=== PATIENT | female | born 1950 | race Caucasian/White ===

== ENCOUNTER 2017-12-20 18:24 | Inpatient (IN) ==
[2017-12-20 19:39] LABS: Basophils % 0.3 % (0.1-2.0); Eosinophils # 0.3 K/mm3 (0.0-0.4); Hemoglobin 10.6 g/dL (12.2-16.2); Lymphocytes # 0.7 K/mm3 (0.7-4.5); Lymphocytes % 8.7 K/mm3 (10-50); Mean Corpuscular Hemoglobin 28.9 pg (27.0-31.2); Mean Corpuscular Volume 90.1 fl (81-99); Mean Platelet Volume 6.9 fl (7.4-10.4); Monocytes # 0.4 K/mm3 (0.1-1.0); Monocytes % 4.7 % (1.7-9.3); Neutrophils # 6.7 K/mm3 (1.8-7.8); Neutrophils % 83.2 % (37.0-80.0); Platelet Count 516 K/mm3 (142-424); Red Blood Count 3.66 M/mm3 (4.20-5.40); Red Cell Distribution Width 14.4 % (11.5-17.5); White Blood Count 8.1 K/mm3 (4.8-10.8)
[2017-12-20 19:53] LABS: Albumin Level 3.3 gm/dL (3.4-5.0); Albumin/Globulin Ratio 0.9 (1.1-1.8); Anion Gap 21.9 mEq/L (5-15); Bilirubin,Total 0.3 mg/dL (0.2-1.0); Calcium 9.9 mg/dL (8.5-10.1); Globulin 3.7 gm/dl (1.3-3.2)
[2017-12-20 19:55] LABS: Potassium 2.9 mmoL/L (3.5-5.1)
--- NOTE | 2017-12-20 21:07 | Emergency Department Note ---
ED Disposition Clinical Impression: Facial cellulitis, Hypokalemia, Renal insufficiency Anemia Qualifiers: Anemia type: unspecified type Qualified Code(s): D64.9 - Anemia, unspecified Disposition: Admitted as Observation Condition on Discharge: Good Referrals: Figueroa Pastrana MD [Primary Care Provider] - - Critical Care Critical Care Time: No Attestation: On 12/20/17, the high probability of a clinically significant, sudden or life threatening deterioration of the following system(s) required my full and direct attention, intervention and personal management. The time I documented below is in addition to time spent performing reported procedures but includes the following listed in this critical care notation. Medical Decision Making - Medical Records Medical records reviewed: Yes: I reviewed the patient's medical records. - Khari Inquiry Pt receiving controlled substance: No Vital Signs: 12/20/17 18:25 12/20/17 19:55 12/20/17 21:38 Temperature 99.1 F Temperature Source Oral Pulse Rate [Right Brachial] 119 H 77 93 H Respiratory Rate 20 14 16 Blood Pressure [Right Arm] 147/108 162/75 173/72 Blood Pressure Mean [Right Arm] 121 104 105 Blood Pressure Source [Right Arm] Automatic Cuff Blood Pressure Position [Right Arm] Sitting 02 Sat by Pulse Oximetry 99 97 98 Oxygen Delivery Method Room Air Room Air Room Air - Lab Data Lab results reviewed: Yes: I reviewed the patient's lab results. Lab Results 12/20/17 19:15: WBC 8.1, RBC 3.66 L, Hgb 10.6 L, Hct 33.0 L, MCV 90.1, MCH 28.9 , MCHC 32.0, RDW 14.4, Plt Count 516 H, MPV 6.9 L, Neut % (Auto) 83.2 H, Lymph % (Auto) 8.7 L, [place] % (Auto) 4.7, Eos % (Auto) 3.0, Baso % (Auto) 0.3, Neut # ( Auto) 6.7, Lymph # (Auto) 0.7, [place] # (Auto) 0.4, Eos # (Auto) 0.3, Baso # (Auto ) 0.0 12/20/17 19:15: Sodium 134 L, Potassium 2.9 L*, Chloride 104, Carbon Dioxide 11 L, Anion Gap 21.9 H, BUN 36 H, Creatinine 2.23 H, Estimated Creat Clear 38, Estimated GFR 22 L, Est GFR ( Amer) 27 L, Glucose 100, Calcium 9.9, Total Bilirubin 0.3, AST 25, ALT 23, Alkaline Phosphatase 152 H, Total Protein 7.0, Albumin 3.3 L, Globulin 3.7 H, Albumin/Globulin Ratio 0.9 L 12/20/17 19:15: Lactic Acid 1.1 12/20/17 19:15: C-Reactive Protein 5.8 H 12/20/17 21:35: ESR 99 H Result diagrams: 12/20/17 19:15 12/20/17 19:15 Orders (Tests/Meds): ED MEDICATIONS Discontinued Medications Generic Name Dose Route Start Last Admin Trade Name Freq PRN Reason Stop Dose Admin Sodium Chloride 1,000 mls @ 999 mls/hr 12/20/17 19:30 12/20/17 19:35 Sod Chlor 0.9% 1000ml Bag IV 12/20/17 20:30 999 mls/hr .[id number] THEA Administration Ondansetron HCl 4 mg 12/20/17 19:26 12/20/17 19:35 Zofran 4mg/2ml Vial IV 12/20/17 19:27 4 mg ONCE ONE Administration Potassium Chloride 40 meq 12/20/17 22:28 Klor-Con 20meq Tablet PO 12/20/17 22:29 ONCE ONE ORDERS Category Date Time Status Chest XR 2 view (NOT portable) [XR chest 2V] Stat Exams 12/20/17 21:17 Taken Urinalysis and Microscopic Stat Lab 12/20/17 19:03 Ordered Blood Culture Stat Micro 12/20/17 19:03 Received - Radiology Data #1 Image(s): Chest Image Reviewed: Yes I reviewed the patient's radiology image Preliminary Findings: Normal/NAD Weakness HPI - General Chief complaint: Weakness Stated complaint: Weak; Not eating Time Seen by Provider: 12/20/17 21:04 Mode of Arrival: Wheelchair Limitations: No Limitations Description of Symptoms (Recalled from ER Triage Doc. by RN): Per pt family report pt had all over her teeth extracted approx 2 months ago. Family reports pt was having some weakness and fatgue prior to teeth extraction but it was worsened since extraction. Pt reports fatigue, weakness, dizziness more when movement, decreased appetite. Reports has had blisters in mouth. Pt has a swollen area under her chin that pt reports has been present x2 days. - History of Present Illness HPI Narrative: pt with wt loss and feels unwell over the last few weeks with wt loss since dental extractions - no diabetes and no fever - MD Complaint: generalized weakness Onset (ago): day(s) Location: generalized Migration: none Severity: moderate Associated symptoms: loss of appetite - Related Data Home Medications Medication Instructions Recorded Confirmed Buspirone HCl [Buspar 5mg tablet] 5 mg PO NEEDED PRN 12/20/17 12/20/17 Lisinopril/Hydrochlorothiazide 1 tab PO DAILY 12/20/17 12/20/17 [Lisinopril-Hctz 10-12.5 mg Tab] Allergies Allergy/AdvReac Type Severity Reaction Status Date / Time Penicillins Allergy Verified 12/20/17 19:03 [facility] History I have reviewed the patient's past medical history: Yes ROS Obtained: Yes All systems reviewed & no additional complaints - Constitutional Constitutional: Denies fever(s) - Eyes Eyes: Denies change in vision - ENT Ears, Nose, Mouth, and Throat: Reports as per HPI, Denies sore throat - Cardiovascular Cardiovascular: Denies chest pain - Respiratory Respiratory: No cough - Gastrointestinal Gastrointestingal: Denies: abdominal pain, nausea, vomiting - Genitourinary Female Genitourinary: Denies hematuria - Musculoskeletal Musculoskeletal: Denies joint pain - Integumentary/Breasts Skin/Breast: Denies rash - Neurologic Neurologic: Denies headache(s), Denies seizure-like activity Physical Exam - General General appearance: alert - Head Head exam: normocephalic - Eye Eye exam: Present: PERRL, EOMI. Absent: scleral icterus - ENT ENT exam: Present: mucous membranes dry, other (submental ) - Neck Neck exam: Absent: trachea midline - Respiratory Respiratory exam: Present: normal lung sounds bilaterally - Cardiovascular Cardiovascular exam: Present: regular rate, systolic murmur - Abdominal Exam Abdominal exam: Present: soft - Extremities Exam Extremities exam: Absent: calf tenderness - Neurological Exam Neurological exam: Present: alert, oriented X3, CN II-XII intact - Psychiatric Psychiatric exam: Present: normal affect, depressed - Skin Skin exam: Absent: rash
[2017-12-20 23:14] LABS: T4 (Thyroxine) 12.7 ug/dl (4.7-13.3); Thyroid Stimulating Hormone 0.84 uIU/ml (0.358-3.740)
[2017-12-21 05:21] LABS: Microscopic, Urine URINE MICROSCOPIC (MICROSCOPIC)
[2017-12-21 05:34] LABS: Appearance,Urine CLEAR (Clear); Bilirubin,Urine Negative (Negative); Blood, Urine 1+ (Negative); Color,Urine YELLOW (Yellow); Glucose,Urine (UA) Negative (Negative); Ketones,Urine Negative (Negative); Leukocyte Esterase,Urine 1+ (Negative); PH,Urine 6.5 (5.0-8.5); Protein,Urine 1+ (Negative); Urobilinogen,Urine 0.2 EU/dl (0.2)
--- NOTE | 2017-12-21 06:08 | History & Physical Report ---
*Admission Date: 12/20/17 *Chief complaint: Weakness and right facial swelling *History of present illness: 67-year-old white female with history of significant dental disease who 2-3 weeks ago had all of her teeth extracted. She has felt very poorly since then, has had a lot of facial swelling, was placed on antibiotics at the time of the extraction but finished these continue to have increasing swelling below the right jawline. She went back to her dental office a week ago, they really did not do many changes according to family's report, but she began to have increasing swelling below the right jaw. She began to become increasingly weak and has lost according to family's report 20 pounds since her teeth were extracted. Came to the emergency department last night, found to be hypokalemic. Found to have significant swelling of the jaw, elevated white count and possible cellulitis and was admitted for further diagnostic testing and IV antibiotics. [facility] History I have reviewed the patient's past medical history: Yes Medical History: Denies:: Cancer, Diabetes Mellitus Type 1, Diabetes Mellitus Type 2, MRSA Other Medical History: Reports: Arthritis (recent diag of RA) Other Surgeries: Yes: , Other (teeth extraction, cataracts) Amputation: No Fractures: No - *Social History Educational Level: Completed High School Smoking Status: Never smoker Alcohol Intake: never Occupational Status: retired Housing: house Household Members: friend(s) - Psychiatric History Expresses thoughts of harming self/others: None Suicide Plan Description: No Plan *Family Hx:: Diabetes, Stroke Review of Systems - Review of Systems Patient denies cardiac or pulmonary symptoms. Denies diarrhea, complains of occasional constipation. Denies syncope, vertigo or seizure activity. Reports weight loss as noted above, reports subjective fevers. Reports that "my blood pressures been all messed up." Reports malaise fatigue and weakness over the past several weeks. - *Neurologic Denies headache(s), Denies seizure-like activity Meds Home Medications Medication Instructions Recorded Confirmed Type Buspirone HCl [Buspar 5mg tablet] 5 mg PO NEEDED PRN 12/20/17 12/20/17 History Lisinopril/Hydrochlorothiazide 1 tab PO DAILY 12/20/17 12/20/17 History [Lisinopril-Hctz 10-12.5 mg Tab] Allergies Allergy/AdvReac Type Severity Reaction Status Date / Time Penicillins Allergy Verified 12/20/17 19:03 Exam Vital signs and Labs for Last 24 Hours: Temp Pulse Resp BP Pulse Ox 98.1 F 87 22 190/67 100 12/21/17 04:00 12/21/17 04:00 12/21/17 04:00 12/21/17 04:00 12/21/17 04:00 Laboratory Results - last 24 hr 12/20/17 19:15: WBC 8.1, RBC 3.66 L, Hgb 10.6 L, Hct 33.0 L, MCV 90.1, MCH 28.9 , MCHC 32.0, RDW 14.4, Plt Count 516 H, MPV 6.9 L, Neut % (Auto) 83.2 H, Lymph % (Auto) 8.7 L, [place] % (Auto) 4.7, Eos % (Auto) 3.0, Baso % (Auto) 0.3, Neut # ( Auto) 6.7, Lymph # (Auto) 0.7, [place] # (Auto) 0.4, Eos # (Auto) 0.3, Baso # (Auto ) 0.0 12/20/17 19:15: Sodium 134 L, Potassium 2.9 L*, Chloride 104, Carbon Dioxide 11 L, Anion Gap 21.9 H, BUN 36 H, Creatinine 2.23 H, Estimated Creat Clear 38, Estimated GFR 22 L, Est GFR ( Amer) 27 L, Glucose 100, Calcium 9.9, Total Bilirubin 0.3, AST 25, ALT 23, Alkaline Phosphatase 152 H, Total Protein 7.0, Albumin 3.3 L, Globulin 3.7 H, Albumin/Globulin Ratio 0.9 L 12/20/17 19:15: Lactic Acid 1.1 12/20/17 19:15: C-Reactive Protein 5.8 H 12/20/17 19:15: TSH 0.84, Thyroxine (T4) 12.7 12/20/17 21:35: ESR 99 H 12/21/17 05:00: Urine Color Yellow, Urine Appearance Clear, Urine pH 6.5, Ur Specific [place] 1.010, Urine Protein 1+, Urine Glucose (UA) Negative, Urine Ketones Negative, Urine Blood 1+, Urine Nitrate Negative, Urine Bilirubin Negative, Urine Urobilinogen 0.2, Ur Leukocyte Esterase 1+ A I & O for Last 24 hours: Intake & Output 12/18/17 12/19/17 12/20/17 12/21/17 11:59 11:59 11:59 11:59 Intake Total 1100 / 1100 Balance 1100 / 1100 Weight 213 lb 13.574 oz Narrative: Patient is alert, pleasant, wishes to go home. Has obvious swelling just below the right angle of the jaw with tenderness and mass consistent with cellulitis. Intraoral cavity looks good, extraction sites look well-healed. She is currently edentulous. Lungs are clear, heart rate regular, abdomen soft. H&P: Result - Labs Labs: Short CBC 12/20/17 Range/Units 19:15 WBC 8.1 (4.8-10.8) K/mm3 Hgb 10.6 L (12.2-16.2) g/dL Hct 33.0 L (37.0-47.0) % Plt Count 516 H (142-424) K/mm3 BMP 12/20/17 19:15 Sodium 134 L Potassium 2.9 L* Chloride 104 Carbon Dioxide 11 L BUN 36 H Creatinine 2.23 H Glucose 100 Calcium 9.9 Liver Function 12/20/17 Range/Units 19:15 Total Bilirubin 0.3 (0.2-1.0) mg/dL AST 25 (15-37) U/L ALT 23 (12-78) U/L Alkaline Phosphatase 152 H (46-116) U/L Albumin 3.3 L (3.4-5.0) gm/dL Urine 12/21/17 Range/Units 05:00 Urine Color Yellow (Yellow) Urine Appearance Clear (Clear) Urine pH 6.5 (5.0-8.5) Ur Specific [place] 1.010 (1.005-1.030) Urine Protein 1+ (Negative) Urine Glucose (UA) Negative (Negative) Assessment and Plan (1) Anemia Current visit: Yes Status: Acute Qualifiers: Anemia type: unspecified type Qualified Code(s): D64.9 - Anemia, unspecified Category: Medical Code(s): D64.9 - Anemia, unspecified (2) Facial cellulitis Current visit: Yes Status: Acute Category: Medical Code(s): L03.211 - Cellulitis of face (3) Hypokalemia Current visit: Yes Status: Acute Category: Medical Code(s): E87.6 - Hypokalemia (4) Renal insufficiency Current visit: Yes Status: Acute Category: Medical Code(s): N28.9 - Disorder of kidney and ureter, unspecified - Assessment and plan all Dx Assessment and Plan for all problems:: Agree with admission for IV antibiotics, watch potassium carefully, watch creatinine as she seems to be significantly dehydrated. Follow labs this morning tomorrow. Agree with IV antibiotics. CT scan of facial area.
[2017-12-21 06:14] LABS: Bacteria,Urine 2+ /lpf
[2017-12-21 06:58] LABS: Basophils % 0.2 % (0.1-2.0); Eosinophils # 0.2 K/mm3 (0.0-0.4); Monocytes # 0.4 K/mm3 (0.1-1.0); Monocytes % 5.2 % (1.7-9.3); Red Cell Distribution Width 14.6 % (11.5-17.5)
[2017-12-21 07:08] LABS: Eosinophils % 2.4 % (0.1-12.0); Hematocrit 29.4 % (37.0-47.0); Hemoglobin 9.4 g/dL (12.2-16.2); Lymphocytes # 0.9 K/mm3 (0.7-4.5); Lymphocytes % 12.2 K/mm3 (10-50); Mean Corpuscular HGB Conc 31.8 g/dL (31.8-35.4); Mean Corpuscular Hemoglobin 28.6 pg (27.0-31.2); Mean Corpuscular Volume 89.8 fl (81-99); Neutrophils # 5.6 K/mm3 (1.8-7.8); Platelet Count 517 K/mm3 (142-424); Red Blood Count 3.28 M/mm3 (4.20-5.40)
[2017-12-21 07:15] LABS: Anion Gap 15.5 mEq/L (5-15); Chol/HDL Ratio 3.6 (1-3.5)
[2017-12-21 07:20] LABS: Potassium 2.5 mmoL/L (3.5-5.1)
--- NOTE | 2017-12-21 09:16 | Pharmacy Consult Notes ---
[facility] Pharmacy VTE Monitoring - Patient Demographics Admission date: 12/21/17 Report Date: 12/21/17 Time: 09:15 Allergies/Adverse Reactions: Patient Allergies Penicillins Allergy (Verified 12/20/17 19:03) Height: 1.68 m Weight: 97 kg Patient Problems: Current Active Problems Facial cellulitis (Acute) Hypokalemia (Acute) Renal insufficiency (Acute) Anemia (Acute) - VTE Risk Labs: VTE Related Lab Results Hgb 9.4 g/dL (12.2-16.2) L D 12/21/17 06:26 Hct 29.4 % (37.0-47.0) L 12/21/17 06:26 Plt Count 517 K/mm3 (142-424) H 12/21/17 06:26 BUN 30 mg/dL (7-18) H 12/21/17 06:26 Creatinine 2.00 mg/dL (0.55-1.02) H 12/21/17 06:26 Estimated Creat Clear 42 mL/min (0-300) 12/21/17 06:26 Was VTE Risk Assessment Performed: Yes VTE Score: 3 VTE Risk Level: Low Risk - Prophylaxis Types of VTE Prophylaxis: TEDS Knee High Location of Applied Device: Bilateral Lower Extremeties (TEJA HOSE ORDERED)
[2017-12-22 06:50] LABS: Basophils % 0.8 % (0.1-2.0); Eosinophils # 0.3 K/mm3 (0.0-0.4); Eosinophils % 5.4 % (0.1-12.0); Hemoglobin 8.5 g/dL (12.2-16.2); Lymphocytes # 0.9 K/mm3 (0.7-4.5); Lymphocytes % 16.6 K/mm3 (10-50); Mean Corpuscular HGB Conc 31.7 g/dL (31.8-35.4); Mean Corpuscular Hemoglobin 29.1 pg (27.0-31.2); Mean Corpuscular Volume 91.9 fl (81-99); Mean Platelet Volume 7.2 fl (7.4-10.4); Monocytes # 0.3 K/mm3 (0.1-1.0); Monocytes % 5.6 % (1.7-9.3); Neutrophils # 3.6 K/mm3 (1.8-7.8); Neutrophils % 71.6 % (37.0-80.0); Platelet Count 425 K/mm3 (142-424); Red Blood Count 2.91 M/mm3 (4.20-5.40); Red Cell Distribution Width 14.7 % (11.5-17.5); White Blood Count 5.1 K/mm3 (4.8-10.8)
[2017-12-22 06:55] LABS: Hematocrit 26.7 % (37.0-47.0)
[2017-12-22 07:04] LABS: Albumin Level 2.6 gm/dL (3.4-5.0); Albumin/Globulin Ratio 0.7 (1.1-1.8); Bilirubin,Total 0.2 mg/dL (0.2-1.0); Globulin 3.5 gm/dl (1.3-3.2); Total Protein,Serum 6.1 gm/dL (6.4-8.2)
[2017-12-22 07:17] LABS: Calcium 8.3 mg/dL (8.5-10.1)
[2017-12-22 07:51] VITALS: BP 155/54
--- NOTE | 2017-12-22 08:00 | Discharge Summary ---
General - General Admission date:: 12/20/17 Discharge date: 12/22/17 HPI HPI: 67-year-old white female with history of significant dental disease who 2-3 weeks ago had all of her teeth extracted. She has felt very poorly since then, has had a lot of facial swelling, was placed on antibiotics at the time of the extraction but finished these continue to have increasing swelling below the right jawline. She went back to her dental office a week ago, they really did not do many changes according to family's report, but she began to have increasing swelling below the right jaw. She began to become increasingly weak and has lost according to family's report 20 pounds since her teeth were extracted. Came to the emergency department last night, found to be hypokalemic. Found to have significant swelling of the jaw, elevated white count and possible cellulitis and was admitted for further diagnostic testing and IV antibiotics. Hospital Course Hospital Course: Patient was admitted, treated with IV fluids, intravenous ceftriaxone and clindamycin, tolerated this well and facial cellulitis improved. CT scanning was done which revealed no evidence of abscess. Did have involvement of the lateral side of the neck and some strap muscles of the neck which however, did not show abscess formation. Patient improved dramatically overnight from is a swelling perspective. This morning only has a limited amount of swelling. Feels ready to go home. Acute kidney injury was also treated with IV fluids and improved, creatinine improved this morning as noted below. Her potassium was treated with p.o. potassium, this improved and she feels much stronger. Plan will be to go home on antibiotics, potassium supplementation-she has this at home but has not been taking-I instructed her to restart this. Close follow- up in our office with labs in the next 4 days. Objective Vital signs: Temp Pulse Resp BP Pulse Ox 98.5 F 81 20 155/54 100 12/22/17 07:51 12/22/17 07:51 12/22/17 07:51 12/22/17 07:51 12/22/17 07:51 Narrative: Patient is awake, alert, no intraoral lesions. Heart rate regular, lungs clear. Facial cellulitis vastly improved with only one small area of swelling below the jaw on the submandibular area on the right side only. Much smaller than previously. Results Labs on day of discharge: Labs from last 24 hours 12/22/17 12/22/17 06:28 06:28 WBC 5.1 D RBC 2.91 L Hgb 8.5 L Hct 26.7 L MCV 91.9 MCH 29.1 MCHC 31.7 L RDW 14.7 Plt Count 425 H MPV 7.2 L Neut % (Auto) 71.6 Lymph % (Auto) 16.6 [place] % (Auto) 5.6 Eos % (Auto) 5.4 Baso % (Auto) 0.8 Neut # (Auto) 3.6 Lymph # (Auto) 0.9 [place] # (Auto) 0.3 Eos # (Auto) 0.3 Baso # (Auto) 0.0 Sodium 139 Potassium 3.0 L Chloride 112 H Carbon Dioxide 11 L D Anion Gap 19.0 H BUN 25 H Creatinine 1.66 H Estimated Creat Clear 51 Estimated GFR 31 L Est GFR ( Amer) 37 L D Glucose 83 Calcium 8.3 L D Total Bilirubin 0.2 AST 33 D ALT 27 Alkaline Phosphatase 150 H Total Protein 6.1 L Albumin 2.6 L D Globulin 3.5 H Albumin/Globulin Ratio 0.7 L DS: Diagnosis - Discharge Diagnosis (1) Anemia Status: Chronic (2) Facial cellulitis Status: Acute (3) Hypokalemia Status: Acute (4) Renal insufficiency Status: Acute Discharge Plan - Patient Discharge Instructions ACTIVITY: Continue current activity DIET: continue same diet - Follow up Plan Follow up with: Martha Uriarte APRN [Nurse Practitioner] - 12/27/17 12:00 pm Disposition: Home, Self-Detention Medications: Home Medications Medication Instructions Recorded Confirmed Type Buspirone HCl [Buspar 5mg tablet] 5 mg PO NEEDED PRN 12/20/17 12/20/17 History Lisinopril/Hydrochlorothiazide 1 tab PO DAILY 12/20/17 12/20/17 History [Lisinopril-Hctz 10-12.5 mg Tab] Tizanidine HCl 2 mg PO BID 12/21/17 12/21/17 History Prescriptions/Medication Reconciliation: New Clindamycin HCl [Clindamycin 300mg Cap] 300 mg PO TID #21 cap Potassium Chloride [K-Tab ER 20 mEq] 20 meq PO DAILY #60 tab Cefdinir [Omnicef 300mg Capsule] 300 mg PO BID #14 cap Continue Lisinopril/Hydrochlorothiazide [Lisinopril-Hctz 10-12.5 mg Tab] 1 tab PO DAILY Buspirone HCl [Buspar 5mg tablet] 5 mg PO NEEDED PRN PRN Reason: Anxiety Tizanidine HCl 2 mg PO BID
== END 2017-12-22 08:26 | disposition home or self-care (01) ==
LOC: ER 18:24 → 2ND 18:24 → OBSVTOIN 22:50 → 2ND 22:53
PROVIDERS: ADMIT Emergency Medicine; ATTEND Internal Medicine Adolescent Medicine
CPT/HCPCS: 36415; 70486; 70490; 71020; 71046; 80048; 80053; 80061; 81001; 83605; 83735; 84436; 84443; 85025; 85651; 86140; 87040; 87086; 96365; 96367; 96375; 99285; J2405

== ENCOUNTER → 2017-12-26 10:41 | Outpatient (CLI) | payer MEDICARE, SELFPAY ==
[2017-12-26 12:05] LABS: Basophils % 0.4 % (0.1-2.0); Eosinophils # 0.3 K/mm3 (0.0-0.4); Eosinophils % 4.5 % (0.1-12.0); Hematocrit 32.8 % (37.0-47.0); Lymphocytes # 0.9 K/mm3 (0.7-4.5); Mean Corpuscular HGB Conc 30.5 g/dL (31.8-35.4); Mean Corpuscular Hemoglobin 28.8 pg (27.0-31.2); Mean Corpuscular Volume 94.5 fl (81-99); Mean Platelet Volume 7.2 fl (7.4-10.4); Monocytes # 0.2 K/mm3 (0.1-1.0); Neutrophils # 4.4 K/mm3 (1.8-7.8); Neutrophils % 76.2 % (37.0-80.0); Platelet Count 445 K/mm3 (142-424); Red Blood Count 3.47 M/mm3 (4.20-5.40); Red Cell Distribution Width 15.3 % (11.5-17.5); White Blood Count 5.8 K/mm3 (4.8-10.8)
[2017-12-26 13:09] LABS: Erythrocyte Sedimentation Rate 48 mm/hr (0-30)
[2017-12-26 13:21] LABS: Alanine Aminotransferase 24 U/L (12-78); Albumin Level 3.2 gm/dL (3.4-5.0); Albumin/Globulin Ratio 0.9 (1.1-1.8); Alkaline Phosphatase 155 U/L (46-116); Anion Gap 20.3 mEq/L (5-15); Aspartate Amino Transferase 17 U/L (15-37); Bilirubin,Total 0.2 mg/dL (0.2-1.0); Blood Urea Nitrogen 21 mg/dL (7-18); Calcium 9.2 mg/dL (8.5-10.1); Carbon Dioxide 13 mmol/L (21.0-32.0); Chloride 109 mmol/L (98-107); Creatinine,Serum 1.51 mg/dL (0.55-1.02); Estimated Glomerular Filt Rate 34 ml/min (>60); GFR (African American) 42 ML/MIN (>60); Globulin 3.6 gm/dl (1.3-3.2); Glucose 110 mg/dL (74-106); Potassium 4.3 mmoL/L (3.5-5.1); Sodium 138 mmol/L (136-145); Total Protein,Serum 6.8 gm/dL (6.4-8.2)
== END ==
PROVIDERS: Visit Provider Nurse Practitioner Family
DX: E87.6 Hypokalemia (principal); N17.9 Acute kidney failure, unspecified; L03.211 Cellulitis of face
CPT/HCPCS: 36415; 80053; 85025; 85651

== ENCOUNTER → 2018-01-01 12:15 | Outpatient (CLI) | payer MEDICARE, SELFPAY ==
[2018-01-01 12:38] LABS: Basophils % 0.3 % (0.1-2.0); Eosinophils # 0.2 K/mm3 (0.0-0.4); Eosinophils % 2.6 % (0.1-12.0); Hematocrit 35.9 % (37.0-47.0); Hemoglobin 11.1 g/dL (12.2-16.2); Lymphocytes # 0.7 K/mm3 (0.7-4.5); Mean Corpuscular Hemoglobin 28.9 pg (27.0-31.2); Mean Corpuscular Volume 93.3 fl (81-99); Mean Platelet Volume 7.4 fl (7.4-10.4); Monocytes # 0.2 K/mm3 (0.1-1.0); Monocytes % 2.3 % (1.7-9.3); Neutrophils % 85.8 % (37.0-80.0); Platelet Count 457 K/mm3 (142-424); Red Blood Count 3.85 M/mm3 (4.20-5.40); Red Cell Distribution Width 15.6 % (11.5-17.5); White Blood Count 8.2 K/mm3 (4.8-10.8)
[2018-01-01 12:44] LABS: MANUAL DIFFERENTIAL MANUAL DIFFERENTIAL (MANUAL DIFF)
[2018-01-01 14:13] LABS: Alanine Aminotransferase 25 U/L (12-78); Albumin Level 3.4 gm/dL (3.4-5.0); Alkaline Phosphatase 127 U/L (46-116); Aspartate Amino Transferase 29 U/L (15-37); Bilirubin,Total 0.2 mg/dL (0.2-1.0); Blood Urea Nitrogen 30 mg/dL (7-18); Carbon Dioxide 13 mmol/L (21.0-32.0); Chloride 105 mmol/L (98-107); Creatinine,Serum 1.94 mg/dL (0.55-1.02); Estimated Glomerular Filt Rate 26 ml/min (>60); GFR (African American) 31 ML/MIN (>60); Globulin 3.5 gm/dl (1.3-3.2); Glucose 112 mg/dL (74-106); Sodium 134 mmol/L (136-145); Total Protein,Serum 6.9 gm/dL (6.4-8.2)
[2018-01-01 14:57] LABS: Eosinophils % 1 % (0-3); Lymphocytes % 7 % (10-50); Monocytes % 2 % (2-9); Neutrophils % 90 % (42-76); Total Cells Counted 100
[2018-01-01 14:58] LABS: Platelet Estimate Slight Increase
== END ==
PROVIDERS: Visit Provider Nurse Practitioner Family
DX: D64.9 Anemia, unspecified (principal)
CPT/HCPCS: 36415; 80053; 85007; 85025

== ENCOUNTER 2019-01-17 12:49 | Inpatient (IN) ==
--- NOTE | 2019-01-17 13:40 | Emergency Department Note ---
ED Disposition Clinical Impression: Dizziness, Hypertension, Acute mastoiditis, Neural foraminal stenosis of cervical spine, Anemia, Renal insufficiency, Hyponatremia Disposition: Still a Patient Condition on Discharge: Fair Referrals: Figueroa Pastrana MD [Primary Care Provider] - - Critical Care Critical Care Time: No Attestation: On 01/17/19, the high probability of a clinically significant, sudden or life threatening deterioration of the following system(s) required my full and direct attention, intervention and personal management. The time I documented below is in addition to time spent performing reported procedures but includes the following listed in this critical care notation. Medical Decision Making - Khari Inquiry Pt receiving controlled substance: No Khari was queried for this patient: No Vital Signs: 01/17/19 13:25 01/17/19 13:49 01/17/19 13:55 Temperature 97.9 F Temperature Source Oral Pulse Rate [Right Brachial] 105 H 86 78 Respiratory Rate 22 16 18 Blood Pressure [Right Arm] 170/67 H 129/74 178/90 H Blood Pressure Mean [Right Arm] 101 92 119 Blood Pressure Source [Right Arm] Automatic Cuff Automatic Cuff Automatic Cuff Blood Pressure Position [Right Arm] Sitting Sitting Sitting 02 Sat by Pulse Oximetry 100 98 100 Oxygen Delivery Method Room Air Room Air 01/17/19 15:00 01/17/19 16:30 01/17/19 17:00 Temperature Temperature Source Pulse Rate [Right Brachial] 88 81 80 Respiratory Rate Blood Pressure [Right Arm] 182/60 H 170/76 H 160/92 H Blood Pressure Mean [Right Arm] 100 107 114 Blood Pressure Source [Right Arm] Blood Pressure Position [Right Arm] 02 Sat by Pulse Oximetry 100 100 100 Oxygen Delivery Method - Lab Data Lab Results 01/17/19 15:45: WBC 6.7, RBC 2.69 L, Hgb 7.5 L*, Hct 24.5 L, MCV 91.2, MCH 27.8, MCHC 30.5 L, RDW 18.2 H, Plt Count 362, MPV 7.4, Neut % (Auto) 89.6 H, Lymph % (Auto) 7.1 L, [place] % (Auto) 2.8, Eos % (Auto) 0.4, Baso % (Auto) 0.2, Neut # (Auto) 6.0, Lymph # (Auto) 0.5 L, [place] # (Auto) 0.2, Eos # (Auto) 0.0, Baso # (Auto) 0.0, Total Counted 100, Neutrophils % (Manual) 94 H, Band Neutrophils % 1.0, Lymphocytes % (Manual) 4 L, Monocytes % (Manual) 1 L, Platelet Estimate Normal, Tear Drop Cells 1+, Helmet Cells 1+ 01/17/19 15:45: Sodium 127 L, Potassium 3.7, Chloride 100, Carbon Dioxide 13 L, Anion Gap 17.7 H, BUN 44 H, Creatinine 1.43 H, Estimated Creat Clear 48, Estimated GFR 37 L, Est GFR ( Amer) 44 L, Glucose 103, Calcium 8.1 L, Total Bilirubin 0.5, AST 43 H, ALT 38, Alkaline Phosphatase 162 H, Total Creatine Kinase 31, CK-MB (CK-2) 3.5, CK-MB (CK-2) Rel Index 11.3 H*, Troponin I < 0.02, Total Protein 5.9 L, Albumin 2.5 L, Globulin 3.4 H, Albumin/Globulin Ratio 0.7 L 01/17/19 15:45: B-Natriuretic Peptide 273 H 01/17/19 15:45: Magnesium 2.4 H, Plasma/Serum Alcohol 0 01/17/19 15:45: D-Dimer 3080 H* 01/17/19 17:05: WBC 5.9, RBC 2.55 L, Hgb 6.9 L*, Hct 23.8 L*, MCV 93.4, MCH 27.1, MCHC 29.0 L, RDW 18.3 H, Plt Count 316, MPV 7.8, Neut % (Auto) 88.2 H, Lymph % (Auto) 8.4 L, [place] % (Auto) 2.7, Eos % (Auto) 0.4, Baso % (Auto) 0.3, Neut # (Auto) 5.2, Lymph # (Auto) 0.5 L, [place] # (Auto) 0.2, Eos # (Auto) 0.0, Baso # (Auto) 0.0 Result diagrams: 01/17/19 17:05 01/17/19 15:45 Orders (Tests/Meds): ED MEDICATIONS Generic Name Dose Route Start Last Admin Trade Name Freq PRN Reason Stop Dose Admin Levofloxacin/Dextrose 500 mg in 100 mls @ 100 mls/hr 01/17/19 15:15 01/17/19 16:14 Levaquin 500mg/100ml Premix IV 01/31/19 15:14 100 mls/hr Q24H THEA Administration Protocol Discontinued Medications Generic Name Dose Route Start Last Admin Trade Name Mya PRN Reason Stop Dose Admin Aspirin 325 mg 01/17/19 13:43 01/17/19 14:35 Aspirin Ec 325mg Tablet PO 01/17/19 13:44 325 mg ONCE ONE Administration Meclizine HCl 50 mg 01/17/19 15:44 01/17/19 16:14 Antivert 25mg Tablet PO 01/17/19 15:45 50 mg ONCE ONE Administration Nitroglycerin 0.5 gm 01/17/19 13:43 01/17/19 14:35 Nitroglycerin 1 Inch Oint Udp TD 01/17/19 13:44 0.5 gm ONCE ONE Administration ORDERS Category Date Time Status Chest XR -- portable [XR chest portable] Stat Exams 01/17/19 13:42 Taken Drug Screen,Urine Stat Lab 01/17/19 13:54 Ordered Troponin I Stat Lab 01/17/19 17:33 Received Arterial Blood Gas Stat RT 01/17/19 13:55 Ordered - CT Data CT Scan: Head, C-Spine, Chest Time Received: 17:[address] Reviewed: Yes: I have viewed the radiologist's interpretation Preliminary Findings: Abnormal Findings Narrative: The scan of the head is positive for acute mastoiditis CT scan of the cervical spine is positive for C6-C7 narrowing with multi-facet arthropathy with foraminal stenosis - ECG Data Tracing #1 Normal sinus rhythm 83/min poor R wave progression normal ST and T wave no acute findings. ECG initial impression date: 01/17/19 ECG initial impression time: 13:45 Medical Decision Narrative: It was noted that the patient has a blood pressure 190/90 applied nitroglycerin paste and she was given 1 aspirin po. Patient's sodium was 127 her hemoglobin was reduced to 6.9 her BUN and creatinine were elevated I spoke with Dr. Hidalgo who recommended that the patient received gentle IV fluids while preparing blood for type and cross. He will decide later about her need for CT abdomen.. General Adult HPI - General Stated complaint: weak, dizzy and pain in lt arm Time Seen by Provider: 01/17/19 13:30 Mode of Arrival: Family Vehicle Source of Information: Patient Limitations: No Limitations Description of Symptoms (Recalled from ER Triage Doc. by RN): C/O DIZZINESS,NAUSEA,AND LEFT ARM PAIN FOR OVER A WEEK WITH SOB - History of Present Illness HPI narrative: 68 years old white female with history of anxiety, dizziness and hypertension. She was brought by her daughter due to worsening of her dizziness for the past 4 weeks. Denies having chest pain but she complains of left shoulder pain that radiates down the left upper extremity it is worse with movement and relieved by rest. Of breath palpitations nausea or vomiting. Onset (ago): week(s) Location: head Radiation: non-radiation Relieving factors: none Exacerbating factors: none Associated symptoms: denies other symptoms - Related Data Home Medications Medication Instructions Recorded Confirmed RX: Buspirone HCl [Buspar 5mg 5 mg PO NEEDED PRN 12/20/17 12/20/17 tablet] RX: Lisinopril/Hydrochlorothiazide 1 tab PO DAILY 12/20/17 12/20/17 [Lisinopril-Hctz 10-12.5 mg Tab] Previous Rx's Medication Instructions Recorded RX: Potassium Chloride [K-Tab ER 20 meq PO DAILY #60 tab 12/22/17 20 mEq] Allergies Allergy/AdvReac Type Severity Reaction Status Date / Time Penicillins Allergy Verified 12/20/17 19:03 [facility] History - Hepatitis A Screen Drug use history?: No High risk sexual behaviors?: No History of sexually transmitted infection?: No Currently employed?: No Childcare worker?: No Do you have indoor plumbing?: Yes Do you have electricity?: Yes Attestation statement:: This patient has been screened for Hepatitis A risk factors. I have reviewed the patient's past medical history: Yes Medical History: Denies:: Cancer, Diabetes Mellitus Type 1, Diabetes Mellitus Type 2, MRSA Other Medical History: Reports: Arthritis (recent diag of RA) Other Surgeries: Yes: , Other (teeth extraction, cataracts) Amputation: No Fractures: No - Social History Smoking Status: Never smoker Alcohol Intake: never Occupational Status: retired Housing: house Household Members: friend(s) - Psychiatric History Expresses thoughts of harming self/others: None Suicide Plan Description: No Plan Family Hx:: Diabetes, Stroke ROS Obtained: Yes All systems reviewed & no additional complaints Physical Exam - General General appearance: alert, in no apparent distress - Head Head exam: atraumatic, normocephalic, normal inspection - Eye Eye exam: Present: normal appearance, PERRL, EOMI. Absent: scleral icterus, nystagmus - ENT ENT exam: Present: normal exam, normal oropharynx, mucous membranes moist, TM's normal bilaterally, normal external ear exam - Neck Neck exam: Present: normal inspection, full ROM, trachea midline. Absent: tenderness, meningismus, lymphadenopathy - Chest Chest inspection: Present: normal inspection, symmetric chest wall rise. Absent: tenderness - Respiratory Respiratory exam: Present: normal lung sounds bilaterally. Absent: respiratory distress, wheezes - Cardiovascular Cardiovascular exam: Present: regular rate, normal rhythm, normal heart sounds. Absent: JVD - Abdominal Exam Abdominal exam: Present: soft, normal bowel sounds. Absent: distention, tenderness, guarding, rebound, rigidity - Extremities Exam Extremities exam: Present: full ROM, tenderness, normal capillary refill, other (Tenderness of AC joint of the left shoulder with muscle wasting). Absent: pedal edema, joint swelling, calf tenderness - Back Exam Back exam: Present: normal inspection. Absent: tenderness, CVA tenderness (R), CVA tenderness (L), muscle spasm - Neurological Exam Neurological exam: Present: alert, oriented X3, CN II-XII intact, motor sensory deficit, reflexes normal - Psychiatric Psychiatric exam: Present: normal affect, normal mood - Skin Skin exam: Present: warm, dry, intact, normal color - Lymphatic Lymphatic Findings: no adenopathy
[2019-01-17 16:26] LABS: Alanine Aminotransferase 38 U/L (12-78); Albumin Level 2.5 gm/dL (3.4-5.0); Albumin/Globulin Ratio 0.7 (1.1-1.8); Alkaline Phosphatase 162 U/L (46-116); Anion Gap 17.7 mEq/L (5-15); Aspartate Amino Transferase 43 U/L (15-37); Bilirubin,Total 0.5 mg/dL (0.2-1.0); Blood Urea Nitrogen 44 mg/dL (7-18); Calcium 8.1 mg/dL (8.5-10.1); Carbon Dioxide 13 mmol/L (21.0-32.0); Chloride 100 mmol/L (98-107); Creatine Kinase 31 U/L (26-192); Globulin 3.4 gm/dl (1.3-3.2); Sodium 127 mmol/L (136-145); Total Protein,Serum 5.9 gm/dL (6.4-8.2)
[2019-01-17 16:30] LABS: Basophils % 0.2 % (0.1-2.0); Eosinophils % 0.4 % (0.1-12.0); Hematocrit 24.5 % (37.0-47.0); Lymphocytes # 0.5 K/mm3 (0.7-4.5); Lymphocytes % 7.1 % (10-50); Mean Corpuscular HGB Conc 30.5 g/dL (31.8-35.4); Mean Corpuscular Volume 91.2 fl (81-99); Mean Platelet Volume 7.4 fl (7.4-10.4); Monocytes # 0.2 K/mm3 (0.1-1.0); Monocytes % 2.8 % (1.7-9.3); Neutrophils % 89.6 % (37.0-80.0); Platelet Count 362 K/mm3 (142-424); Red Blood Count 2.69 M/mm3 (4.20-5.40); Red Cell Distribution Width 18.2 % (11.5-17.5); White Blood Count 6.7 K/mm3 (4.8-10.8)
[2019-01-17 16:31] LABS: Hemoglobin 7.5 g/dL (12.2-16.2)
[2019-01-17 16:32] LABS: Glucose 103 mg/dL (74-106)
[2019-01-17 16:45] LABS: Lymphocytes % 4 % (10-50); Monocytes % 1 % (2-9); Neutrophils % 94 % (42-76); Total Cells Counted 100
[2019-01-17 16:46] LABS: Helmet Cells 1+; Tear Drop Cells 1+
[2019-01-17 17:16] LABS: Basophils % 0.3 % (0.1-2.0); Eosinophils % 0.4 % (0.1-12.0); Lymphocytes # 0.5 K/mm3 (0.7-4.5); Lymphocytes % 8.4 % (10-50); Mean Corpuscular Volume 93.4 fl (81-99); Mean Platelet Volume 7.8 fl (7.4-10.4); Monocytes # 0.2 K/mm3 (0.1-1.0); Monocytes % 2.7 % (1.7-9.3); Neutrophils # 5.2 K/mm3 (1.8-7.8); Neutrophils % 88.2 % (37.0-80.0); Platelet Count 316 K/mm3 (142-424); Red Blood Count 2.55 M/mm3 (4.20-5.40); Red Cell Distribution Width 18.3 % (11.5-17.5); White Blood Count 5.9 K/mm3 (4.8-10.8)
[2019-01-17 17:20] LABS: Hemoglobin 6.9 g/dL (12.2-16.2)
[2019-01-17 17:21] LABS: Hematocrit 23.8 % (37.0-47.0)
[2019-01-17 18:06] LABS: Microscopic, Urine URINE MICROSCOPIC (MICROSCOPIC)
[2019-01-17 18:10] LABS: Appearance,Urine CLEAR (Clear); Bilirubin,Urine Negative (Negative); Blood, Urine 3+ (Negative); Color,Urine YELLOW (Yellow); Glucose,Urine (UA) Negative (Negative); Ketones,Urine Negative (Negative); Leukocyte Esterase,Urine TRACE (Negative); PH,Urine 6.5 (5.0-8.5); Protein,Urine 2+ (Negative); Urobilinogen,Urine 0.2 EU/dl (0.2)
[2019-01-17 18:17] LABS: Bacteria,Urine Trace /lpf; RBC,Urine 20-50 #/hpf (0-3)
[2019-01-17 18:21] LABS: Amphetamine/Metha Screen,Urine Negative ng/mL (<1000); Barbiturates Screen,Urine Negative ng/mL (<200); Benzodiazepines Screen,Urine Negative ng/mL (<200); Cannabinoid Screen,Urine Negative ng/mL (<50); Cocaine Screen,Urine Negative ng/mL (<300); Methadone Screen,Urine Negative ng/mL (<300); Opiate Screen,Urine Negative ng/mL (<300); Phencyclidine Screen,Urine Negative ng/mL (<25)
[2019-01-18 03:53] LABS: Basophils % 0.2 % (0.1-2.0); Eosinophils # 0.1 K/mm3 (0.0-0.4); Eosinophils % 1.7 % (0.1-12.0); Lymphocytes # 0.8 K/mm3 (0.7-4.5); Lymphocytes % 13.5 % (10-50); Mean Corpuscular HGB Conc 30.6 g/dL (31.8-35.4); Mean Corpuscular Volume 89.8 fl (81-99); Mean Platelet Volume 8.3 fl (7.4-10.4); Monocytes # 0.3 K/mm3 (0.1-1.0); Monocytes % 5.7 % (1.7-9.3); Neutrophils # 4.4 K/mm3 (1.8-7.8); Neutrophils % 78.9 % (37.0-80.0); Platelet Count 267 K/mm3 (142-424); Red Blood Count 2.61 M/mm3 (4.20-5.40); Red Cell Distribution Width 17.6 % (11.5-17.5); White Blood Count 5.5 K/mm3 (4.8-10.8)
[2019-01-18 03:57] LABS: Hemoglobin 7.2 g/dL (12.2-16.2)
[2019-01-18 03:58] LABS: Hematocrit 23.4 % (37.0-47.0)
[2019-01-18 04:02] LABS: Anion Gap 16.4 mEq/L (5-15); Calcium 7.9 mg/dL (8.5-10.1)
--- NOTE | 2019-01-18 08:04 | History & Physical Report ---
*Admission Date: 01/17/19 *Chief complaint: dizzy *History of present illness: Ms. Amaya is a 68-year-old female with long-standing dizziness, fatigue, anemia. She presented to the ER at her daughter's request due to worsening fatigue and dizziness. Daughter states that the patient was not walking very well, showing significant signs of being tired and short of breath. Initially brought her to the [facility] where she was transferred over to the ER. On work-up was found to have anemia with schistocytes, normal platelet count, hypo-natremia and hyperchloremia, and concern for an LUISITO. Additionally the patient was noted to have significantly elevated blood pressure with systolics between 150 and 180. On presentation she was additionally complaining of some left arm pain initiating in her shoulder. Work-up was performed for cardiac etiology showing negative EKG changes, negative troponin. Neck CT showing degeneration of the cervical spine. Patient admitted to medicine for further management and transfusion. This morning on exam and interview patient's pain predominantly in her left shoulder, began several years ago after falling on her shoulder and gets aggravated on occasion. Review of history also noted that the patient has lost over 100 pounds in the past 1 to 2 years unintentionally. She states since having her teeth removed a few years ago her sensation of taste has totally changed. She eats poorly therefore providing concern for nutritional deficiency. She otherwise denies any headaches this morning, chest pain, nausea or vomiting, edema, confusion, falls. Still has some dizziness and fatigue and shortness of breath. [facility] History I have reviewed the patient's past medical history: Yes Medical History: Reports:: Hypertension Denies:: Cancer, Diabetes Mellitus Type 1, Diabetes Mellitus Type 2, MRSA *Have you ever received a pneumonia vaccine?: No *Have you received a flu vaccine this season?: No Other Medical History: Reports: Arthritis (recent diag of RA) Laterality Cases: Bilateral: Cataract Other Surgeries: Yes: , Tubal Ligation, Other (teeth extraction, cataracts) Amputation: No Fractures: No - *Social History Educational Level: Completed High School Smoking Status: Never smoker Alcohol Intake: never *Occupational Status:: retired Housing: house Household Members: friend(s) *Travel in the last 8 weeks: None - Psychiatric History Expresses thoughts of harming self/others: None Suicide Plan Description: No Plan Family Hx:: Stroke Review of Systems - Review of Systems Review of systems:: pertinent systems reviewed and negative unless documented below Meds Home Medications Medication Instructions Recorded Confirmed Type Buspirone HCl [Buspar 5mg tablet] 5 mg PO DAILYP PRN 12/20/17 01/18/19 History Lisinopril/Hydrochlorothiazide 1 tab PO DAILY 12/20/17 01/17/19 History [Lisinopril-Hctz 10-12.5 mg Tab] [place] HCl 5 mg PO TID 01/17/19 01/17/19 History Potassium Chloride [K-Tab ER 20 20 meq PO DAILY 01/17/19 01/17/19 History mEq] Tizanidine HCl 1 - 2 mg PO DAILYP PRN 01/17/19 01/18/19 History Allergies Allergy/AdvReac Type Severity Reaction Status Date / Time Penicillins Allergy Verified 12/20/17 19:03 Exam Vital signs and Labs for Last 24 Hours: Temp Pulse Resp BP Pulse Ox 98.5 F 80 18 146/75 H 100 01/18/19 04:00 01/18/19 06:03 01/18/19 06:03 01/18/19 06:03 01/18/19 06:03 Laboratory Results - last 24 hr 01/17/19 15:45: WBC 6.7, RBC 2.69 L, Hgb 7.5 L*, Hct 24.5 L, MCV 91.2, MCH 27.8, MCHC 30.5 L, RDW 18.2 H, Plt Count 362, MPV 7.4, Neut % (Auto) 89.6 H, Lymph % (Auto) 7.1 L, [place] % (Auto) 2.8, Eos % (Auto) 0.4, Baso % (Auto) 0.2, Neut # (Auto) 6.0, Lymph # (Auto) 0.5 L, [place] # (Auto) 0.2, Eos # (Auto) 0.0, Baso # (Auto) 0.0, Total Counted 100, Neutrophils % (Manual) 94 H, Band Neutrophils % 1.0, Lymphocytes % (Manual) 4 L, Monocytes % (Manual) 1 L, Platelet Estimate Normal, Tear Drop Cells 1+, Helmet Cells 1+ 01/17/19 15:45: Sodium 127 L, Potassium 3.7, Chloride 100, Carbon Dioxide 13 L, Anion Gap 17.7 H, BUN 44 H, Creatinine 1.43 H, Estimated Creat Clear 48, Estimated GFR 37 L, Est GFR ( Amer) 44 L, Glucose 103, Calcium 8.1 L, Total Bilirubin 0.5, AST 43 H, ALT 38, Alkaline Phosphatase 162 H, Total Creatine Kinase 31, CK-MB (CK-2) 3.5, CK-MB (CK-2) Rel Index 11.3 H*, Troponin I < 0.02, Total Protein 5.9 L, Albumin 2.5 L, Globulin 3.4 H, Albumin/Globulin Ratio 0.7 L 01/17/19 15:45: B-Natriuretic Peptide 273 H 01/17/19 15:45: Magnesium 2.4 H, Plasma/Serum Alcohol 0 01/17/19 15:45: D-Dimer 3080 H* 01/17/19 15:45: Ferritin 122 01/17/19 17:05: WBC 5.9, RBC 2.55 L, Hgb 6.9 L*, Hct 23.8 L*, MCV 93.4, MCH 27.1, MCHC 29.0 L, RDW 18.3 H, Plt Count 316, MPV 7.8, Neut % (Auto) 88.2 H, Lymph % (Auto) 8.4 L, [place] % (Auto) 2.7, Eos % (Auto) 0.4, Baso % (Auto) 0.3, Neut # (Auto) 5.2, Lymph # (Auto) 0.5 L, [place] # (Auto) 0.2, Eos # (Auto) 0.0, Baso # (Auto) 0.0 01/17/19 17:33: Troponin I < 0.02 01/17/19 18:02: Urine Opiates Screen Negative, Urine Methadone Screen Negative, Ur Barbituates Screen Negative, Ur Phencyclidine Scrn Negative, Ur Amphetamines Screen Negative, U Benzodiazepines Scrn Negative, Urine Cocaine Screen Negative, U Marijuana (THC) Screen Negative 01/17/19 18:02: Urine Color Yellow, Urine Appearance Clear, Urine pH 6.5, Ur Specific [place] 1.010, Urine Protein 2+, Urine Glucose (UA) Negative, Urine Ketones Negative, Urine Blood 3+, Urine Nitrate Negative, Urine Bilirubin Negative, Urine Urobilinogen 0.2, Ur Leukocyte Esterase Trace, Urine RBC 20-50, Urine WBC 3-5, Ur Squamous Epith Cells 3-5, Urine Bacteria Trace 01/17/19 19:40: Blood Type A Positive, Antibody Screen Negative, Crossmatch (AHG) See Detail 01/17/19 19:50: Blood Type Confirm A Positive 01/18/19 03:40: WBC 5.5, RBC 2.61 L, Hgb 7.2 L*, Hct 23.4 L*, MCV 89.8, MCH 27.5, MCHC 30.6 L, RDW 17.6 H, Plt Count 267, MPV 8.3, Neut % (Auto) 78.9, Lymph % (Auto) 13.5, [place] % (Auto) 5.7, Eos % (Auto) 1.7, Baso % (Auto) 0.2, Neut # (Auto) 4.4, Lymph # (Auto) 0.8, [place] # (Auto) 0.3, Eos # (Auto) 0.1, Baso # (Auto) 0.0 01/18/19 03:40: Sodium 130 L, Potassium 3.4 L, Chloride 105, Carbon Dioxide 12 L , Anion Gap 16.4 H, BUN 42 H, Creatinine 1.32 H, Estimated Creat Clear 56, Estimated GFR 40 L, Est GFR ( Amer) 49 L, Glucose 83, Calcium 7.9 L I & O for Last 24 hours: Intake & Output 01/15/19 01/16/19 01/17/19 01/18/19 23:59 23:59 23:59 23:59 Intake Total 1150 / 1150 300 / 300 Output Total 250 / 250 Balance 1150 / 1150 50 / 50 Weight 85.36 kg 85.332 kg - Constitutional no acute distress, obese, chronically ill appearing - *Routine HEENT Exam Head: Present: normocephalic Eye: Present: EOMI, PERRL ENT: Present: mucous membranes dry Comments: Dentures - *Routine Neck Exam Present: supple. Absent: lymphadenopathy - *Routine Respiratory Exam Present: CTA bilaterally - *Routine Cardiovascular Exam Present: RRR - *Routine Abdominal Exam Present: soft, normoactive bowel sounds. Absent: tenderness Comments: Protuberant - *Routine Rectal Exam Patient deferred: visual exam - *Routine Exam Patient deferred: external exam - *Routine Extremities Exam Absent: cyanosis, clubbing, edema Comments: No petechiae on lower extremities or abdomen, significant bruising on forearms; left shoulder TTP with positive empty can test and pain with external rotation against resistance. - *Routine Skin Exam Present: intact, ecchymosis. Absent: petechiae - *Routine Neurological Exam Present: alert, oriented X3 Assessment and Plan (1) Azotemia Current visit: Yes Status: Acute Category: Medical Code(s): R79.89 - Other specified abnormal findings of blood chemistry Suspect prerenal due to the greater than 20-1 ratio of BUN/creatinine. However in the setting of anemia, cannot rule out GI etiology for increased BUN. Urine studies will take 5 days to get back to at this time will obtain a stool guaiac to assess for any bleeding from the GI tract. Patient has never had a colonoscopy so have suspicion for possible etiology, at minimum would recommend colonoscopy in the outpatient setting for routine screening. (2) Acute mastoiditis Current visit: Yes Status: Acute Category: Medical Code(s): H70.009 - Acute mastoiditis without complications, unspecified ear In the setting of dizziness and image finding, complicates picture. We will go ahead and initiate ceftriaxone to treat for this as well as patchy infiltrates found on lung CT. Monitor for improvement. (3) Dizziness Current visit: Yes Status: Acute Category: Medical Code(s): R42 - Dizziness and giddiness Multifactorial. Treating hyponatremia and anemia (4) Hypertension Current visit: Yes Status: Acute Qualifiers: Hypertension type: essential hypertension Qualified Code(s): I10 - Essential (primary) hypertension Category: Medical Code(s): I10 - Essential (primary) hypertension Severe hypertension has been difficult to control. At this time patient is on lisinopril and HCTZ, will continue. Also added carvedilol twice daily. Will use clonidine 0.1 mg as needed every 6-8 hours for sustained blood pressure greater than 180 systolic. (5) Hyponatremia Current visit: Yes Status: Acute Category: Medical Code(s): E87.1 - Hypo- osmolality and hyponatremia Unclear etiology at this time, will obtain urine sodium level to compare for appropriate excretion or conservation. Differential diagnosis includes renal etiology, dehydration and poor intake, poor nutrition. Concern for hypovolemia even though patient is hypertensive to differential at this time includes hypovolemic hyponatremia versus hypervolemic hyponatremia. Urine studies and fluid repletion will assist in this diagnosis. At this time gradually replacing fluids with normal saline, patient responding with improvement in serum sodium level. Plan to gradually increase by 5-10 mEq daily to avoid rapid repletion. Labs every 12 to assess response (6) Neural foraminal stenosis of cervical spine Current visit: Yes Status: Acute Category: Medical Code(s): M99.81 - Other biomechanical lesions of cervical region (7) Renal insufficiency Current visit: Yes Status: Acute Category: Medical Code(s): N28.9 - Disorder of kidney and ureter, unspecified Appears to be prerenal in nature giving elevated BUN and slight improvement with fluid resuscitation. In the setting of anemia and hyponatremia, patient likely has poor perfusion to her kidneys therefore worsening kidney injury. Will monitor for improvement with fluid resuscitation and improvement in hemoglobin levels. Avoid nephrotoxic meds as best as possible. Continue to monitor daily. (8) Anemia Current visit: Yes Status: Chronic Qualifiers: Anemia type: unspecified type Qualified Code(s): D64.9 - Anemia, unspecified Category: Medical Code(s): D64.9 - Anemia, unspecified Anemia at this time is normocytic in nature. Unclear etiology at this time: Differential includes hemolytic anemia, nutritional deficiency (iron or B12 deficiency or combo thereof), aplastic, or due to shearing force with long-st anding high blood pressure given presence of schistocytes.. RDW elevated. MCV within normal range. Given patient's nutritional deficiencies, suspect iron deficiency and B12 deficiency may be at play. Labs pending to answer this question. Additionally however given that she has both teardrop cells and schistocytes, worry about hemolytic process. Reassured that platelet count is normal, low suspicion for HUS, TTP, ITP. LDH and haptoglobin pending to help answer question of hemolytic anemia. In the meantime we will aim for goal of 7- 8 for hemoglobin with fluid repletion as well. Status post 1 unit of red blood cells, receiving second unit today. Will pursue hematology consult in the outpatient setting once patient is stable. (9) Hypokalemia Current visit: No Status: Acute Category: Medical Code(s): E87.6 - Hypokalemia Replacing with fluid and PO (10) Obesity (BMI 30.0-34.9) Current visit: Yes Status: Acute Category: Medical Code(s): E66.9 - Obesity, unspecified Complicates all aspects of care (11) Hypoalbuminemia due to protein-calorie malnutrition Current visit: Yes Status: Acute Category: Medical Code(s): E46 - Unspecified protein-calorie malnutrition Will provide meal replacement supplements as well as regular diet. Nutrition consult placed (12) Rotator cuff arthropathy of left shoulder Current visit: Yes Status: Acute Category: Medical Code(s): M12.812 - Other specific arthropathies, not elsewhere classified, left shoulder Left shoulder pain present on exam consistent with rotator cuff injury. Positive empty can test. At this time counseled on minimal use. Will pursue physical therapy and intra-articular corticosteroid injection in the outpatient setting at follow-up status post hospitalization
--- NOTE | 2019-01-18 09:48 | Pharmacy Consult Notes ---
[facility] Pharmacy VTE Monitoring - Patient Demographics Admission date: 01/17/19 Report Date: 01/18/19 Time: 09:48 Allergies/Adverse Reactions: Patient Allergies Penicillins Allergy (Verified 12/20/17 19:03) Height: 1.65 m Weight: 85.332 kg Patient Problems: Current Active Problems (Updated 01/17/19 @ 17:33 by Laverne Diaz MD) Renal insufficiency (Acute) Anemia (Chronic) Dizziness (Acute) Hypertension (Acute) Acute mastoiditis (Acute) Neural foraminal stenosis of cervical spine (Acute) Hyponatremia (Acute) - VTE Risk Labs: VTE Related Lab Results Hgb 7.2 g/dL (12.2-16.2) L* 01/18/19 03:40 Hct 23.4 % (37.0-47.0) L* 01/18/19 03:40 Plt Count 267 K/mm3 (142-424) 01/18/19 03:40 BUN 42 mg/dL (7-18) H 01/18/19 03:40 Creatinine 1.32 mg/dL (0.55-1.02) H 01/18/19 03:40 Estimated Creat Clear 56 mL/min (50-200) 01/18/19 03:40 Was VTE Risk Assessment Performed: Yes VTE Score: 5 VTE Risk Level: Low Risk - Prophylaxis VTE Prophylaxis Ordered?: Yes Types of VTE Prophylaxis: TEDS Knee High Location of Applied Device: Bilateral Lower Extremeties - VTE Diagnosis Confirmed Treatment or plan recommended: Continue Current Treatment
[2019-01-18 17:00] LABS: Hematocrit 25.7 % (37.0-47.0); Hemoglobin 8.1 g/dL (12.2-16.2)
[2019-01-18 17:09] LABS: Anion Gap 18.8 mEq/L (5-15); Calcium 7.8 mg/dL (8.5-10.1)
[2019-01-19 05:56] LABS: Basophils % 0.3 % (0.1-2.0); Eosinophils # 0.1 K/mm3 (0.0-0.4); Eosinophils % 2.2 % (0.1-12.0); Hemoglobin 8.3 g/dL (12.2-16.2); Lymphocytes # 0.5 K/mm3 (0.7-4.5); Mean Corpuscular HGB Conc 30.1 g/dL (31.8-35.4); Mean Platelet Volume 7.9 fl (7.4-10.4); Monocytes # 0.2 K/mm3 (0.1-1.0); Monocytes % 3.5 % (1.7-9.3); Neutrophils # 5.1 K/mm3 (1.8-7.8); Neutrophils % 85.9 % (37.0-80.0); Platelet Count 288 K/mm3 (142-424); Red Blood Count 3.04 M/mm3 (4.20-5.40); Red Cell Distribution Width 18.3 % (11.5-17.5); White Blood Count 5.9 K/mm3 (4.8-10.8)
[2019-01-19 06:02] LABS: Hematocrit 27.7 % (37.0-47.0)
[2019-01-19 06:10] LABS: Albumin Level 2.1 gm/dL (3.4-5.0); Albumin/Globulin Ratio 0.7 (1.1-1.8); Anion Gap 18.5 mEq/L (5-15); Bilirubin,Total 0.4 mg/dL (0.2-1.0); Calcium 7.7 mg/dL (8.5-10.1); Total Protein,Serum 5.1 gm/dL (6.4-8.2)
--- NOTE | 2019-01-19 08:42 | Discharge Summary ---
General - General Admission date:: 01/17/19 Discharge date: 01/19/19 HPI HPI: Ms. Amaya is a 68-year-old female with long-standing dizziness, fatigue, anemia. She presented to the ER at her daughter's request due to worsening fatigue and dizziness. Daughter states that the patient was not walking very well, showing significant signs of being tired and short of breath. Initially brought her to the [facility] where she was transferred over to the ER. On work-up was found to have anemia with schistocytes, normal platelet count, hypo-natremia and hyperchloremia, and concern for an LUISITO. Additionally the patient was noted to have significantly elevated blood pressure with systolics between 150 and 180. On presentation she was additionally complaining of some left arm pain initiating in her shoulder. Work-up was performed for cardiac etiology showing negative EKG changes, negative troponin. Neck CT showing degeneration of the cervical spine. Patient admitted to medicine for further management and transfusion. This morning on exam and interview patient's pain predominantly in her left shoulder, began several years ago after falling on her shoulder and gets aggravated on occasion. Review of history also noted that the patient has lost over 100 pounds in the past 1 to 2 years unintentionally. She states since having her teeth removed a few years ago her sensation of taste has totally changed. She eats poorly therefore providing concern for nutritional deficiency. She otherwise denies any headaches this morning, chest pain, nausea or vomiting, edema, confusion, falls. Still has some dizziness and fatigue and shortness of breath. Hospital Course Hospital Course: Patient was admitted, transfused overnight and hemoglobin ketty to above 8 g. Electrolyte abnormalities were treated with sodium chloride infusions and patient responded well this morning feels better. She notes that when she is given extra blood pressure medication she feels "loopy." Patient desperately wishes to go home and states that she thinks her blood pressure is elevated because of her nervousness about being in the hospital. She wishes to be discharged as soon as possible. Her daughter is here today and is willing/able to make sure that she keeps follow-up appointments for her multiple ongoing conditions. We will send her home with appointment for lab work this week to follow-up anemia/acute on chronic kidney injury. We will have appointments made with general surgery to evaluate for panendoscopy for her anemia, appointment with hematology/oncology for her anemia issues, and follow-up in my office is in the next week. Objective Vital signs: Temp Pulse Resp BP Pulse Ox 97.3 F L 98 H 18 148/61 H 97 01/19/19 08:00 01/19/19 08:00 01/19/19 08:00 01/19/19 08:00 01/19/19 08:00 Narrative: Patient is alert, pleasant. Appears chronically ill. Somewhat sallow complexion. Lungs have good air movement, heart rate regular. Abdomen soft, no edema or clubbing. She is globally weak but has no functional/focal deficits. Results Labs on day of discharge: Labs from last 24 hours 01/19/19 01/19/19 01/18/19 05:39 05:39 16:15 WBC 5.9 RBC 3.04 L Hgb 8.3 L 8.1 L D Hct 27.7 L 25.7 L MCV 91.0 MCH 27.4 MCHC 30.1 L RDW 18.3 H Plt Count 288 MPV 7.9 Neut % (Auto) 85.9 H Lymph % (Auto) 8.0 L [place] % (Auto) 3.5 Eos % (Auto) 2.2 Baso % (Auto) 0.3 Neut # (Auto) 5.1 Lymph # (Auto) 0.5 L [place] # (Auto) 0.2 Eos # (Auto) 0.1 Baso # (Auto) 0.0 Sodium 132 L Potassium 3.5 Chloride 106 Carbon Dioxide 11 L Anion Gap 18.5 H BUN 38 H Creatinine 1.32 H Estimated Creat Clear 56 Estimated GFR 40 L Est GFR ( Amer) 49 L Glucose 89 Calcium 7.7 L Total Bilirubin 0.4 AST 37 ALT 31 Alkaline Phosphatase 140 H Lactate Dehydrogenase Total Protein 5.1 L Albumin 2.1 L Globulin 3.0 Albumin/Globulin Ratio 0.7 L Urine Creatinine Blood Type Antibody Screen Crossmatch (AHG) 01/18/19 01/18/19 01/17/19 16:15 08:15 19:40 WBC RBC Hgb Hct MCV MCH MCHC RDW Plt Count MPV Neut % (Auto) Lymph % (Auto) [place] % (Auto) Eos % (Auto) Baso % (Auto) Neut # (Auto) Lymph # (Auto) [place] # (Auto) Eos # (Auto) Baso # (Auto) Sodium 131 L Potassium 3.8 Chloride 105 Carbon Dioxide 11 L Anion Gap 18.8 H BUN 39 H Creatinine 1.32 H Estimated Creat Clear 56 Estimated GFR 40 L Est GFR ( Amer) 49 L Glucose 86 Calcium 7.8 L Total Bilirubin AST ALT Alkaline Phosphatase Lactate Dehydrogenase 133 Total Protein Albumin Globulin Albumin/Globulin Ratio Urine Creatinine Blood Type A Positive Antibody Screen Negative Crossmatch (AHG) See Detail 01/17/19 18:02 WBC RBC Hgb Hct MCV MCH MCHC RDW Plt Count MPV Neut % (Auto) Lymph % (Auto) [place] % (Auto) Eos % (Auto) Baso % (Auto) Neut # (Auto) Lymph # (Auto) [place] # (Auto) Eos # (Auto) Baso # (Auto) Sodium Potassium Chloride Carbon Dioxide Anion Gap BUN Creatinine Estimated Creat Clear Estimated GFR Est GFR ( Amer) Glucose Calcium Total Bilirubin AST ALT Alkaline Phosphatase Lactate Dehydrogenase Total Protein Albumin Globulin Albumin/Globulin Ratio Urine Creatinine 50 Blood Type Antibody Screen Crossmatch (AHG) DS: Diagnosis - Discharge Diagnosis (1) Azotemia Status: Acute (2) Acute mastoiditis Status: Acute (3) Dizziness Status: Acute (4) Hypertension Status: Acute (5) Hyponatremia Status: Acute (6) Neural foraminal stenosis of cervical spine Status: Acute (7) Renal insufficiency Status: Acute (8) Anemia Status: Chronic (9) Hypokalemia Status: Acute (10) Obesity (BMI 30.0-34.9) Status: Acute (11) Hypoalbuminemia due to protein-calorie malnutrition Status: Acute (12) Rotator cuff arthropathy of left shoulder Status: Acute Discharge Plan - Patient Discharge Instructions ACTIVITY: Continue current activity DIET: continue same diet Patient Instructions: Vertigo, Anemia, High Blood Pressure - Follow up Plan Follow up with: Martha Uriarte APRN [Nurse Practitioner] - 1 week Jr Wakefield MD [Staff Physician] - 2 days Elmira Muhammad MD [Staff Physician] - 1 week Disposition: Home, Self-Group Home Medications: Home Medications Medication Instructions Recorded Confirmed Type Buspirone HCl [Buspar 5mg tablet] 5 mg PO DAILYP PRN 12/20/17 01/18/19 History Lisinopril/Hydrochlorothiazide 1 tab PO DAILY 12/20/17 01/17/19 History [Lisinopril-Hctz 10-12.5 mg Tab] Pilocarpine HCl 5 mg PO TID 01/17/19 01/17/19 History Potassium Chloride [K-Tab ER 20 20 meq PO DAILY 01/17/19 01/17/19 History mEq] Tizanidine HCl 1 - 2 mg PO DAILYP PRN 01/17/19 01/18/19 History Prescriptions/Medication Reconciliation: No Action Lisinopril/Hydrochlorothiazide [Lisinopril-Hctz 10-12.5 mg Tab] 1 tab PO DAILY Buspirone HCl [Buspar 5mg tablet] 5 mg PO DAILYP PRN PRN Reason: Anxiety Tizanidine HCl 1 - 2 mg PO DAILYP PRN PRN Reason: Muscle Spasm Pilocarpine HCl 5 mg PO TID Potassium Chloride [K-Tab ER 20 mEq] 20 meq PO DAILY
[2019-01-19 09:39] LABS: Lymphocytes % 4 % (10-50); Monocytes % 2 % (2-9); Myelocytes % 1 (0-1); Neutrophils % 93 % (42-76); Total Cells Counted 100
[2019-01-19 09:40] LABS: Anisocytosis 1+
[2019-01-19 09:42] LABS: Hypochromasia 2+; Tear Drop Cells 1+
[2019-01-19 18:18] LABS: Folate 11.6 ng/mL (>3.0)
== END 2019-01-19 09:55 | disposition home or self-care (01) | DRG 641 ==
LOC: UTC 12:49 → ER 12:49 → 2ND 17:57
PROVIDERS: ADMIT Internal Medicine Adolescent Medicine; ATTEND Internal Medicine Adolescent Medicine
DX: E87.1 Hypo-osmolality and hyponatremia; F41.9 Anxiety disorder, unspecified; I10 Essential (primary) hypertension; Z88.0 Allergy status to penicillin; Z83.3 Family history of diabetes mellitus; D64.9 Anemia, unspecified; Z68.31 Body mass index [BMI] 31.0-31.9, adult; M48.02 Spinal stenosis, cervical region; E88.09 Other disorders of plasma-protein metabolism, not elsewhere classified; M12.812 Other specific arthropathies, not elsewhere classified, left shoulder; H70.009 Acute mastoiditis without complications, unspecified ear; E46 Unspecified protein-calorie malnutrition; N28.9 Disorder of kidney and ureter, unspecified; E87.6 Hypokalemia; R63.4 Abnormal weight loss; Z82.3 Family history of stroke
CPT/HCPCS: 36415; 70450; 71010; 71045; 71275; 72125; 80048; 80053; 80305; 81001; 82550; 82553; 82570; 82607; 82728; 82746; 83010; 83540; 83550; 83615; 83735; 83880; 84300; 84466; 84484; 85007; 85014; 85018; 85025; 85378; 86850; 93005; 96365; 96367; 96375; 99284; J1956; P9016; Q9967

== ENCOUNTER → 2019-01-23 11:11 | Outpatient (CLI) | payer MEDICARE, SELFPAY ==
[2019-01-23 12:50] LABS: Basophils % 0.3 % (0.1-2.0); Eosinophils # 0.1 K/mm3 (0.0-0.4); Eosinophils % 1.1 % (0.1-12.0); Hematocrit 30.1 % (37.0-47.0); Hemoglobin 8.9 g/dL (12.2-16.2); Lymphocytes # 0.5 K/mm3 (0.7-4.5); Lymphocytes % 7.3 % (10-50); Mean Corpuscular HGB Conc 29.7 g/dL (31.8-35.4); Mean Corpuscular Hemoglobin 27.1 pg (27.0-31.2); Mean Corpuscular Volume 91.4 fl (81-99); Mean Platelet Volume 7.4 fl (7.4-10.4); Monocytes # 0.2 K/mm3 (0.1-1.0); Monocytes % 2.9 % (1.7-9.3); Neutrophils # 5.8 K/mm3 (1.8-7.8); Neutrophils % 88.4 % (37.0-80.0); Platelet Count 391 K/mm3 (142-424); Red Cell Distribution Width 17.8 % (11.5-17.5); White Blood Count 6.5 K/mm3 (4.8-10.8)
[2019-01-23 13:00] LABS: MANUAL DIFFERENTIAL MANUAL DIFFERENTIAL (MANUAL DIFF)
[2019-01-23 15:22] LABS: Anisocytosis 1+; Hypochromasia 1+; Lymphocytes % 3 % (10-50); Microcytosis 1+; Monocytes % 3 % (2-9); Neutrophils % 94 % (42-76); Platelet Estimate Normal; Total Cells Counted 100
[2019-01-23 15:34] LABS: Alanine Aminotransferase 35 U/L (12-78); Albumin Level 2.3 gm/dL (3.4-5.0); Albumin/Globulin Ratio 0.7 (1.1-1.8); Alkaline Phosphatase 155 U/L (46-116); Anion Gap 17.1 mEq/L (5-15); Aspartate Amino Transferase 32 U/L (15-37); Bilirubin,Total 0.4 mg/dL (0.2-1.0); Blood Urea Nitrogen 44 mg/dL (7-18); Calcium 8.2 mg/dL (8.5-10.1); Carbon Dioxide 13 mmol/L (21.0-32.0); Chloride 106 mmol/L (98-107); Creatinine,Serum 1.43 mg/dL (0.55-1.02); Estimated Glomerular Filt Rate 37 ml/min (>60); GFR (African American) 44 ML/MIN (>60); Globulin 3.1 gm/dl (1.3-3.2); Glucose 110 mg/dL (74-106); Potassium 4.1 mmoL/L (3.5-5.1); Sodium 132 mmol/L (136-145); Total Protein,Serum 5.4 gm/dL (6.4-8.2)
== END ==
PROVIDERS: Visit Provider Internal Medicine Adolescent Medicine
DX: D64.9 Anemia, unspecified (principal)
CPT/HCPCS: 36415; 80053; 85007; 85025

== ENCOUNTER → 2019-01-30 12:01 | Outpatient (CLI) | payer MEDICARE, SELFPAY ==
[2019-01-30 17:01] LABS: Lactate Dehydrogenase 238 U/L (82-234)
[2019-01-31 15:14] LABS: Free Kappa Lt Chains 105.2 mg/L (3.3-19.4); Free Lambda Lt Chains 63.2 mg/L (5.7-26.3)
[2019-02-01 22:50] LABS: Haptoglobin 173 mg/dL (34-200)
[2019-02-02 12:09] LABS: Immunoglobulin A, Qn 215 mg/dL (87-352); Immunoglobulin G, Qn 1132 mg/dL (700-1600)
[2019-02-02 13:31] LABS: Albumin 2.7 g/dL (2.9-4.4); Alpha-1-Globulin 0.3 g/dL (0.0-0.4); Alpha-2-Globulin 0.7 g/dL (0.4-1.0); Gamma Globulin 1.3 g/dL (0.4-1.8); Protein, Total 5.6 g/dL (6.0-8.5)
[2019-02-02 16:41] LABS: Erythropoietin 10.5 mIU/mL (2.6-18.5); Immunoglobulin M, Qn 265 mg/dL (26-217)
== END ==
PROVIDERS: Visit Provider Internal Medicine Medical Oncology
DX: D64.9 Anemia, unspecified (principal)
CPT/HCPCS: 82525; 82668; 82784; 83010; 83615; 83883; 84155; 84165; 86334

== ENCOUNTER → 2019-02-20 12:46 | Outpatient (CLI) | payer MEDICARE, SELFPAY ==
[2019-02-20 13:59] LABS: Basophils % 0.3 % (0.1-2.0); Eosinophils # 0.4 K/mm3 (0.0-0.4); Eosinophils % 6.2 % (0.1-12.0); Lymphocytes # 0.9 K/mm3 (0.7-4.5); Lymphocytes % 15.3 % (10-50); Mean Corpuscular HGB Conc 33.9 g/dL (31.8-35.4); Mean Corpuscular Hemoglobin 29.8 pg (27.0-31.2); Mean Corpuscular Volume 87.9 fl (81-99); Mean Platelet Volume 6.8 fl (7.4-10.4); Monocytes # 0.2 K/mm3 (0.1-1.0); Monocytes % 3.1 % (1.7-9.3); Neutrophils # 4.4 K/mm3 (1.8-7.8); Neutrophils % 75.1 % (37.0-80.0); Platelet Count 329 K/mm3 (142-424); Red Blood Count 2.62 M/mm3 (4.20-5.40); Red Cell Distribution Width 20.8 % (11.5-17.5); White Blood Count 5.9 K/mm3 (4.8-10.8)
[2019-02-20 14:38] LABS: Hemoglobin 7.8 g/dL (12.2-16.2)
[2019-02-20 15:40] LABS: Blood Urea Nitrogen 28 mg/dL (7-18); Creatinine,Serum 1.54 mg/dL (0.55-1.02); Estimated Glomerular Filt Rate 34 ml/min (>60); GFR (African American) 41 ML/MIN (>60)
== END ==
PROVIDERS: Visit Provider Internal Medicine Hematology & Oncology
DX: R18.8 Other ascites (principal)
CPT/HCPCS: 36415; 82565; 84520; 85025

== ENCOUNTER → 2019-02-24 10:12 | Outpatient (CLI) | payer MEDICARE, SELFPAY ==
--- NOTE | 2019-02-24 11:01 | CT_ITS ---
CT abdomen pelvis wo/w con CLINICAL INDICATION: Ascites, possible cirrhosis, elevated liver function test ORDERING PHYSICIAN: Wilfrid Crenshaw MD PATIENT AGE: 68 years COMPARISON: None TECHNIQUE: Contrast Used:75ml Optiray 350 Oral Contrast: 450ml Redicat Axial images obtained without and with contrast with sagittal and coronal reformats. All CT scans at the facility use one or more dose reduction, viz: automated exposure control, ma/kV adjustment per patient size (including targeted exams where dose is matched to indication, i.e. head), or iterative reconstruction technique. FINDINGS: There are trace bilateral pleural effusions. The right effusion has decreased in volume compared to the previous. No focal liver lesions are evident. There is some minimal irregularity of the liver surface along the right hepatic lobe inferiorly. The portal vein does not appear enlarged and there is no evidence of splenomegaly. Small amount of ascites in the upper abdomen with perihepatic and perisplenic fluid noted. There are gallstones present. There also appears to be some calcification of the medial wall of the gallbladder in addition to the gallstones. 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 The spleen, adrenal glands, pancreas, and kidneys have an unremarkable appearance. There are some delay in renal excretion of contrast. No intestinal obstruction or free air. There is a mild amount of retained colonic feces. There is a ventral abdominal wall hernia which contains a loop of small bowel. The umbilicus is not readily demonstrated. The hernia is approximately 10 cm inferior to the expected location of the umbilicus and vertex slightly to the left of midline. There is an old abdominal wall incision in inferior to the hernia. There is generalized subcutaneous edema and a small amount of pelvic fluid. There are degenerative changes of lumbar spine. IMPRESSION: 1. There is mild surface irregularity of the liver which could be seen with early cirrhosis. There is some generalized ascites with generalized subcutaneous edema. 2. 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 Lower ventral abdominal wall hernia containing a loop of small bowel approximately 10 cm below the expected level of the umbilicus and along the superior aspect of a lower ventral abdominal wall incision
== END ==
PROVIDERS: PCP Internal Medicine Adolescent Medicine; Visit Provider Internal Medicine Hematology & Oncology
DX: K74.60 Unspecified cirrhosis of liver (principal)
CPT/HCPCS: 74178; Q9967

== ENCOUNTER 2019-02-24 21:59 | Observation (INO) ==
[2019-02-24 22:21] LABS: Basophils % 0.1 % (0.1-2.0); Eosinophils # 0.1 K/mm3 (0.0-0.4); Eosinophils % 0.9 % (0.1-12.0); Hematocrit 27.6 % (37.0-47.0); Hemoglobin 8.8 g/dL (12.2-16.2); Lymphocytes # 0.4 K/mm3 (0.7-4.5); Lymphocytes % 4.2 % (10-50); Mean Corpuscular HGB Conc 31.8 g/dL (31.8-35.4); Mean Corpuscular Volume 91.1 fl (81-99); Monocytes # 0.2 K/mm3 (0.1-1.0); Monocytes % 2.4 % (1.7-9.3); Neutrophils # 8.6 K/mm3 (1.8-7.8); Neutrophils % 92.5 % (37.0-80.0); Platelet Count 338 K/mm3 (142-424); Red Blood Count 3.04 M/mm3 (4.20-5.40); Red Cell Distribution Width 20.7 % (11.5-17.5); White Blood Count 9.3 K/mm3 (4.8-10.8)
--- NOTE | 2019-02-24 22:24 | Emergency Department Note ---
ED Disposition Clinical Impression: LUISITO (acute kidney injury) Allergic reaction Qualifiers: Encounter type: initial encounter Qualified Code(s): T78.40XA - Allergy, uns pecified, initial encounter Anemia Qualifiers: Anemia type: unspecified type Qualified Code(s): D64.9 - Anemia, unspecified Disposition: Admitted as Observation Condition on Discharge: Good Referrals: Figueroa Pastrana MD [Primary Care Provider] - - Critical Care Critical Care Time: No Attestation: On 02/24/19, the high probability of a clinically significant, sudden or life threatening deterioration of the following system(s) required my full and direct attention, intervention and personal management. The time I documented below is in addition to time spent performing reported procedures but includes the following listed in this critical care notation. Medical Decision Making - Medical Records Medical records reviewed: Yes: I reviewed the patient's medical records. - Khari Inquiry Pt receiving controlled substance: No Vital Signs: 02/24/19 21:58 Temperature 97.4 F L Temperature Source Oral Pulse Rate [Left Radial] 91 H Respiratory Rate 12 Blood Pressure [Right Arm] 114/56 L Blood Pressure Mean [Right Arm] 75 Blood Pressure Source [Right Arm] Automatic Cuff Blood Pressure Position [Right Arm] Supine 02 Sat by Pulse Oximetry 100 Oxygen Delivery Method Room Air - Lab Data Lab results reviewed: Yes: I reviewed the patient's lab results. Lab Results 02/24/19 22:05: WBC 9.3, RBC 3.04 L, Hgb 8.8 L, Hct 27.6 L, MCV 91.1, MCH 29.0, MCHC 31.8, RDW 20.7 H, Plt Count 338, MPV 7.0 L, Neut % (Auto) 92.5 H, Lymph % (Auto) 4.2 L, [place] % (Auto) 2.4, Eos % (Auto) 0.9, Baso % (Auto) 0.1, Neut # (Auto) 8.6 H, Lymph # (Auto) 0.4 L, [place] # (Auto) 0.2, Eos # (Auto) 0.1, Baso # (Auto) 0.0, Total Counted 100, Neutrophils % (Manual) 93 H, Lymphocytes % (Manual) 4 L, Monocytes % (Manual) 2, Eosinophils % (Manual) 1, Platelet Estimate Normal 02/24/19 22:05: Sodium 132 L, Potassium 2.8 L*, Chloride 104, Carbon Dioxide 12 L, Anion Gap 18.8 H, BUN 33 H, Creatinine 1.78 H, Estimated Creat Clear 40, Estimated GFR 28 L, Est GFR ( Amer) 34 L, Glucose 167 H, Calcium 7.5 L Result diagrams: 02/24/19 22:05 02/24/19 22:05 Orders (Tests/Meds): ED MEDICATIONS Generic Name Dose Route Start Last Admin Trade Name Freq PRN Reason Stop Dose Admin Sodium Chloride 1,000 mls @ 999 mls/hr 02/24/19 22:15 02/24/19 22:22 Sod Chlor 0.9% 1000ml Bag IV 02/24/19 23:15 999 mls/hr .[id number] THEA Administration Sodium Chloride 10 ml 02/24/19 22:12 Saline Flush 10ml Syringe IV 03/26/19 22:11 NEEDED PRN Maintain IV Site Discontinued Medications Generic Name Dose Route Start Last Admin Trade Name Freq PRN Reason Stop Dose Admin Diphenhydramine HCl 25 mg 02/24/19 22:12 02/24/19 22:21 Benadryl 50mg/1ml Vial IV 02/24/19 22:13 25 mg ONCE ONE Administration Famotidine 20 mg 02/24/19 22:12 02/24/19 22:22 Pepcid 20mg/2ml Vial IV 02/24/19 22:13 20 mg ONCE ONE Administration Methylprednisolone Sodium Succinate 125 mg 02/24/19 22:12 02/24/19 22:22 Solu-Medrol 125mg/2ml Vial IV 02/24/19 22:13 125 mg ONCE ONE Administration Sodium Chloride 8 ml 02/24/19 22:12 02/24/19 22:21 Saline Flush 10ml Syringe IV 02/24/19 22:13 8 ml ONCE ONE Administration - Physician Consults Physician Consulted: [email or web address] Reason -: Admission Allergic React/Insect Bite HPI - General Chief complaint: Allergic Reaction Stated complaint: allergic reaction Time Seen by Provider: 02/24/19 22:00 Mode of Arrival - ED Triage: EMS Source of Information: Patient, EMS, Medical Record Limitations: No Limitations - History of Present Illness HPI narrative: pt with acute diffuse swelling and itching with facial swelling and no throat or tongue swelling - had ct today at noon with iv contrast and sx began at 1700- no chest pain MD complaint: allergic reaction, facial swelling Onset (ago): hour(s) Exposure: other (iv contrast ) Symptoms: rash, itching, facial swelling Treatment prior to arrival: none Allergies/Adverse Reactions: Allergies Allergy/AdvReac Type Severity Reaction Status Date / Time carvedilol Allergy Severe rash, n/v, Verified 02/24/19 22:09 weakness, swelling Penicillins Allergy Verified 02/24/19 22:09 Previous Allergic Reaction History: none Severity: severe - Related Data Home Medications Medication Instructions Recorded Confirmed Pilocarpine HCl 5 mg PO TID 01/17/19 02/24/19 Potassium Chloride [K-Tab ER 20 20 meq PO DAILY 01/17/19 02/24/19 mEq] Tizanidine HCl 1 - 2 mg PO DAILYP PRN 01/17/19 02/24/19 lisinopril 10 1 tab PO DAILY #90 tab 02/12/19 02/24/19 mg-hydrochlorothiazide 12.5 mg tablet mirtazapine 15 mg tablet 15 mg PO DAILY #30 tab 02/12/19 02/24/19 [facility] History - Hepatitis A Screen Drug use history?: No High risk sexual behaviors?: No History of sexually transmitted infection?: No Currently employed?: No Childcare worker?: No Do you have indoor plumbing?: Yes Do you have electricity?: Yes Attestation statement:: This patient has been screened for Hepatitis A risk factors. I have reviewed the patient's past medical history: Yes Medical History: Reports:: Anxiety, Depression, Hypertension Denies:: Cancer, Diabetes Mellitus Type 1, Diabetes Mellitus Type 2, MRSA Other Medical History: Reports: Arthritis Laterality Cases: Bilateral: Cataract Other Surgeries: Yes: , Tubal Ligation, Other Amputation: No Fractures: No - Social History Educational Level: Completed High School Smoking Status: Never smoker Alcohol Intake: never Alcohol Intake Frequency:: other Substance Use Type: denies use Occupational Status: retired Housing: house Household Members: friend(s) - Psychiatric History Pschychiatric History:: Reports:: Anxiety, Depression Family Hx:: Stroke ROS Obtained: Yes All systems reviewed & no additional complaints - Constitutional Constitutional: Denies fever(s) - Eyes Eyes: Denies change in vision - ENT Ears, Nose, Mouth, and Throat: Denies difficulty swallowing, Denies lip swelling, Denies throat swelling - Cardiovascular Cardiovascular: Denies chest pain - Respiratory Respiratory: No cough - Gastrointestinal Gastrointestingal: Denies: abdominal pain - Genitourinary Female Genitourinary: Denies hematuria - Musculoskeletal Musculoskeletal: Denies joint swelling - Integumentary/Breasts Skin/Breast: Reports as per HPI, Reports itching, Reports rash, Reports skin swelling - Neurologic Neurologic: Denies focal weakness, Denies seizure-like activity Physical Exam - General General appearance: alert - Head Head exam: normocephalic - Eye Eye exam: Present: PERRL, EOMI, periorbital swelling. Absent: scleral icterus - ENT ENT exam: Present: normal oropharynx, mucous membranes dry - Neck Neck exam: Present: trachea midline - Respiratory Respiratory exam: Present: normal lung sounds bilaterally. Absent: respiratory distress - Cardiovascular Cardiovascular exam: Present: regular rate, systolic murmur - Abdominal Exam Abdominal exam: Present: soft - Extremities Exam Extremities exam: Present: full ROM - Neurological Exam Neurological exam: Present: alert, oriented X3, CN II-XII intact - Psychiatric Psychiatric exam: Present: normal affect - Skin Skin exam: Present: erythema, other (hives )
[2019-02-24 22:31] LABS: Anion Gap 18.8 mEq/L (5-15); Calcium 7.5 mg/dL (8.5-10.1)
[2019-02-24 23:04] LABS: Eosinophils % 1 % (0-3); Lymphocytes % 4 % (10-50); Monocytes % 2 % (2-9); Neutrophils % 93 % (42-76); Total Cells Counted 100
[2019-02-25 06:27] LABS: Eosinophils % 0.1 % (0.1-12.0); Hematocrit 24.2 % (37.0-47.0); Lymphocytes # 0.4 K/mm3 (0.7-4.5); Lymphocytes % 4.5 % (10-50); Mean Corpuscular HGB Conc 31.6 g/dL (31.8-35.4); Mean Platelet Volume 6.9 fl (7.4-10.4); Monocytes # 0.2 K/mm3 (0.1-1.0); Monocytes % 1.9 % (1.7-9.3); Neutrophils # 7.9 K/mm3 (1.8-7.8); Neutrophils % 93.6 % (37.0-80.0); Platelet Count 254 K/mm3 (142-424); Red Blood Count 2.66 M/mm3 (4.20-5.40); Red Cell Distribution Width 20.9 % (11.5-17.5); White Blood Count 8.5 K/mm3 (4.8-10.8)
[2019-02-25 06:33] LABS: Anion Gap 16.4 mEq/L (5-15); Calcium 7.4 mg/dL (8.5-10.1)
--- NOTE | 2019-02-25 07:49 | Pharmacy Consult Notes ---
[facility] Pharmacy VTE Monitoring - Patient Demographics Admission date: 02/25/19 Report Date: 02/25/19 Time: 07:49 Allergies/Adverse Reactions: Patient Allergies carvedilol Allergy (Severe, Verified 02/24/19 22:09) rash, n/v, weakness, swelling Penicillins Allergy (Verified 02/24/19 22:09) Height: 1.68 m Weight: 75.892 kg Patient Problems: Current Active Problems Anemia (Chronic) Allergic reaction (Acute) LUISITO (acute kidney injury) (Acute) - VTE Risk Labs: VTE Related Lab Results Hgb 8.8 g/dL (12.2-16.2) L 02/24/19 22:05 Hct 27.6 % (37.0-47.0) L 02/24/19 22:05 Plt Count 338 K/mm3 (142-424) 02/24/19 22:05 BUN 33 mg/dL (7-18) H 02/25/19 05:48 Creatinine 1.89 mg/dL (0.55-1.02) H 02/25/19 05:48 Estimated Creat Clear 35 mL/min (50-200) 02/25/19 05:48 Was VTE Risk Assessment Performed: Yes VTE Risk Level: Very Low Risk Clinical Trial Participant: No - Prophylaxis VTE Prophylaxis Ordered?: Yes Types of VTE Prophylaxis: TEDS Knee High Location of Applied Device: Refused
[2019-02-25 07:54] LABS: Hemoglobin 7.6 g/dL (12.2-16.2)
--- NOTE | 2019-02-25 08:18 | H&P/Discharge Summary ---
General - General Admission date:: 02/24/19 Discharge date: 02/25/19 *Admission Date: 02/25/19 *Chief complaint: Angioedema/IV contrast reaction *History of present illness: 68-year-old white female with long history of anemia, currently being worked up by hematology, as well as baseline renal insufficiency and hypertension. Yesterday she underwent CT scan of the abdomen and pelvis with IV contrast and initially tolerated this well but after the procedure began to have swelling of her face and upper thorax. Treated in the ER with steroids and Benadryl and improved, but she was noted to have increased creatinine over her baseline up to 1.7 and she was admitted overnight for IV fluids and further observation of her angioedema/contrast reaction status. [facility] History I have reviewed the patient's past medical history: Yes Medical History: Reports:: Anxiety, Depression, Hypertension Denies:: Cancer, Diabetes Mellitus Type 1, Diabetes Mellitus Type 2, MRSA *Have you ever received a pneumonia vaccine?: No *Have you received a flu vaccine this season?: No Other Medical History: Reports: Arthritis, Cataracts Laterality Cases: Bilateral: Cataract Other Surgeries: Yes: (X2), Tubal Ligation, Other (ORAL SURGERY) Amputation: No Fractures: No - *Social History Educational Level: Completed High School Smoking Status: Never smoker Alcohol Intake: never Alcohol Intake Frequency:: other Substance Use Type: denies use *Occupational Status:: retired Housing: house Household Members: friend(s) *Travel in the last 8 weeks: None - Psychiatric History Expresses thoughts of harming self/others: None Suicide Plan Description: No Plan Pschychiatric History:: Reports:: Anxiety, Depression Family Hx:: Stroke Review of Systems - Review of Systems Review of systems:: pertinent systems reviewed and negative unless documented below - Constitutional Reports fatigue, Reports malaise, Denies anorexia - Eyes Denies blind spots, Denies blurry vision - ENT Denies abnormal hearing, Denies dizziness - *Cardiovascular Denies chest pain, Denies shortness of breath, Denies shortness of breath with activity - *Respiratory Denies change in phlegm color, Denies chest congestion, Denies shortness of breath with activity, Denies pain on inspiration - *Gastrointestinal Reports abdominal pain - *Musculoskeletal Reports abnormal walking - Integumentary/Breasts Reports acne - *Neurologic Denies localized weakness, Denies seizure-like activity Exam Vital signs and Labs for Last 24 Hours: Temp Pulse Resp BP Pulse Ox 97.7 F 70 18 136/62 99 02/25/19 04:00 02/25/19 04:00 02/25/19 04:00 02/25/19 04:00 02/25/19 04:00 Laboratory Results - last 24 hr 02/24/19 22:05: WBC 9.3, RBC 3.04 L, Hgb 8.8 L, Hct 27.6 L, MCV 91.1, MCH 29.0, MCHC 31.8, RDW 20.7 H, Plt Count 338, MPV 7.0 L, Neut % (Auto) 92.5 H, Lymph % (Auto) 4.2 L, [place] % (Auto) 2.4, Eos % (Auto) 0.9, Baso % (Auto) 0.1, Neut # (Auto) 8.6 H, Lymph # (Auto) 0.4 L, [place] # (Auto) 0.2, Eos # (Auto) 0.1, Baso # (Auto) 0.0, Total Counted 100, Neutrophils % (Manual) 93 H, Lymphocytes % (Manual) 4 L, Monocytes % (Manual) 2, Eosinophils % (Manual) 1, Platelet Estimate Normal 02/24/19 22:05: Sodium 132 L, Potassium 2.8 L*, Chloride 104, Carbon Dioxide 12 L, Anion Gap 18.8 H, BUN 33 H, Creatinine 1.78 H, Estimated Creat Clear 40, Estimated GFR 28 L, Est GFR ( Amer) 34 L, Glucose 167 H, Calcium 7.5 L 02/25/19 05:48: WBC 8.5, RBC 2.66 L, Hgb 7.6 L*, Hct 24.2 L, MCV 91.0, MCH 28.7, MCHC 31.6 L, RDW 20.9 H, Plt Count 254, MPV 6.9 L, Neut % (Auto) 93.6 H, Lymph % (Auto) 4.5 L, [place] % (Auto) 1.9, Eos % (Auto) 0.1, Baso % (Auto) 0.0 L, Neut # (Auto) 7.9 H, Lymph # (Auto) 0.4 L, [place] # (Auto) 0.2, Eos # (Auto) 0.0, Baso # (Auto) 0.0 02/25/19 05:48: Sodium 131 L, Potassium 3.4 L D, Chloride 105, Carbon Dioxide 13 L, Anion Gap 16.4 H, BUN 33 H, Creatinine 1.89 H, Estimated Creat Clear 35, Estimated GFR 27 L, Est GFR ( Amer) 32 L, Glucose 183 H, Calcium 7.4 L I & O for Last 24 hours: Intake & Output 02/22/19 02/23/19 02/24/19 02/25/19 11:59 11:59 11:59 11:59 Intake Total 2410 / 2410 Output Total 100 / 100 Balance 2310 / 2310 Weight 167 lb 5 oz Narrative: Patient is pleasant, alert, oriented x3. She has some redness of her neck and face but no actual angioedema. Oropharynx is clear, no JVD. No stridor, no wheezing her lungs which are clear and well-expanded. Heart rate regular. No distal angioedema, and good distal perfusion. Neurologically intact. Abdomen soft and nontender. Hospital Course Hospital Course: Patient was admitted overnight. Did well. No further angioedema noted. This morning patient wished to go home. Her hemoglobin remains in the range previously noted, and she is asymptomatic from her anemia at this point. Her creatinine is elevated by 0.1 on the lab this morning but she has good urine output and again, desperately wishes to go home. I think she can be discharged with very close creatinine observation as an outpatient and she is in agreement with this plan and promises to come back tomorrow to have her creatinine checked. She will keep her regular appointments with Dr. Muhammad in my office. I will change blood pressure medicine from HCTZ/lisinopril to plain losartan to help creatinine clearance issues. Results Labs on day of discharge: Labs from last 24 hours 02/25/19 02/25/19 02/24/19 05:48 05:48 22:05 WBC 8.5 RBC 2.66 L Hgb 7.6 L* Hct 24.2 L MCV 91.0 MCH 28.7 MCHC 31.6 L RDW 20.9 H Plt Count 254 MPV 6.9 L Neut % (Auto) 93.6 H Lymph % (Auto) 4.5 L [place] % (Auto) 1.9 Eos % (Auto) 0.1 Baso % (Auto) 0.0 L Neut # (Auto) 7.9 H Lymph # (Auto) 0.4 L [place] # (Auto) 0.2 Eos # (Auto) 0.0 Baso # (Auto) 0.0 Total Counted Neutrophils % (Manual) Lymphocytes % (Manual) Monocytes % (Manual) Eosinophils % (Manual) Platelet Estimate Sodium 131 L 132 L Potassium 3.4 L D 2.8 L* Chloride 105 104 Carbon Dioxide 13 L 12 L Anion Gap 16.4 H 18.8 H BUN 33 H 33 H Creatinine 1.89 H 1.78 H Estimated Creat Clear 35 40 Estimated GFR 27 L 28 L Est GFR ( Amer) 32 L 34 L Glucose 183 H 167 H Calcium 7.4 L 7.5 L 02/24/19 22:05 WBC 9.3 RBC 3.04 L Hgb 8.8 L Hct 27.6 L MCV 91.1 MCH 29.0 MCHC 31.8 RDW 20.7 H Plt Count 338 MPV 7.0 L Neut % (Auto) 92.5 H Lymph % (Auto) 4.2 L [place] % (Auto) 2.4 Eos % (Auto) 0.9 Baso % (Auto) 0.1 Neut # (Auto) 8.6 H Lymph # (Auto) 0.4 L [place] # (Auto) 0.2 Eos # (Auto) 0.1 Baso # (Auto) 0.0 Total Counted 100 Neutrophils % (Manual) 93 H Lymphocytes % (Manual) 4 L Monocytes % (Manual) 2 Eosinophils % (Manual) 1 Platelet Estimate Normal Sodium Potassium Chloride Carbon Dioxide Anion Gap BUN Creatinine Estimated Creat Clear Estimated GFR Est GFR ( Amer) Glucose Calcium DS: Diagnosis - Discharge Diagnosis (1) LUISITO (acute kidney injury) Status: Acute (2) Allergic reaction Status: Resolved (3) Anemia Status: Chronic Discharge Plan - Patient Discharge Instructions ACTIVITY: Continue current activity DIET: continue same diet Patient Instructions: Kidney Failure, Anaphylaxis, Anemia, Acute Renal Failure, DI for General Allergic Reactions - Follow up Plan Follow up with: Figueroa Pastrana MD [Primary Care Provider] - Elmira Muhammad MD [Staff Physician] - Disposition: Home, Self-Senior Care Medications: Home Medications Medication Instructions Recorded Confirmed Type [place]ocarpine HCl 5 mg PO TID 01/17/19 02/24/19 History Potassium Chloride [K-Tab ER 20 20 meq PO DAILY 01/17/19 02/24/19 History mEq] Tizanidine HCl 1 - 2 mg PO DAILYP PRN 01/17/19 02/24/19 History lisinopril 10 1 tab PO DAILY #90 tab 02/12/19 02/24/19 History mg-hydrochlorothiazide 12.5 mg tablet mirtazapine 15 mg tablet 15 mg PO DAILY #30 tab 02/12/19 02/24/19 History Furosemide [Furosemide 20mg Tab] 20 mg PO DAILYP PRN 02/25/19 02/25/19 History Losartan Potassium 50 mg PO DAILY #30 tab 02/25/19 Rx Magnesium Oxide [Magnesium] 250 mg PO DAILY 02/25/19 02/25/19 History Melatonin 10 mg PO HS 02/25/19 02/25/19 History Metoprolol Succinate 25 mg PO DAILY 02/25/19 02/25/19 History PARoxetine HCl [Paxil 20mg Tablet] 20 mg PO DAILY 02/25/19 02/25/19 History Prescriptions/Medication Reconciliation: New Losartan Potassium 50 mg PO DAILY #30 tab Continued mirtazapine 15 mg tablet 15 mg PO DAILY #30 tab Tizanidine HCl 1 - 2 mg PO DAILYP PRN PRN Reason: Muscle Spasm [place] HCl 5 mg PO TID PARoxetine HCl [Paxil 20mg Tablet] 20 mg PO DAILY Metoprolol Succinate 25 mg PO DAILY Magnesium Oxide [Magnesium] 250 mg PO DAILY Melatonin 10 mg PO HS Discontinued lisinopril 10 mg-hydrochlorothiazide 12.5 mg tablet 1 tab PO DAILY #90 tab Furosemide [Furosemide 20mg Tab] 20 mg PO DAILYP PRN PRN Reason: DIURETIC Potassium Chloride [K-Tab ER 20 mEq] 20 meq PO DAILY Other Amb Orders: Basic Metabolic Panel Time Frame: 1 Day, Facility: [facility], Location: Laboratory Complete Blood Count Auto Diff Time Frame: 1 Day, Location: None Selected - Problem Reconciliation Problems Reviewed?: Yes
== END 2019-02-25 12:00 | disposition home or self-care (01) ==
LOC: ER 21:59 → 2ND 21:59
PROVIDERS: ADMIT Internal Medicine Adolescent Medicine; ATTEND Internal Medicine Adolescent Medicine
CPT/HCPCS: 36415; 74178; 80048; 85007; 85025; 96365; 96375; 99283; G0378; Q9967

== ENCOUNTER 2019-02-26 12:07 | Observation (INO) ==
[2019-02-26 12:29] LABS: Basophils % 0.1 % (0.1-2.0); Eosinophils % 15.6 % (0.1-12.0); Hematocrit 24.6 % (37.0-47.0); Lymphocytes % 15.7 % (10-50); Mean Corpuscular HGB Conc 31.4 g/dL (31.8-35.4); Mean Corpuscular Volume 92.6 fl (81-99); Mean Platelet Volume 7.5 fl (7.4-10.4); Monocytes # 0.2 K/mm3 (0.1-1.0); Monocytes % 2.7 % (1.7-9.3); Neutrophils # 4.1 K/mm3 (1.8-7.8); Neutrophils % 65.9 % (37.0-80.0); Platelet Count 361 K/mm3 (142-424); Red Blood Count 2.66 M/mm3 (4.20-5.40); Red Cell Distribution Width 21.2 % (11.5-17.5); White Blood Count 6.3 K/mm3 (4.8-10.8)
[2019-02-26 13:47] LABS: Anion Gap 16.6 mEq/L (5-15); Blood Urea Nitrogen 40 mg/dL (7-18); Calcium 7.7 mg/dL (8.5-10.1); Carbon Dioxide 14 mmol/L (21.0-32.0); Chloride 98 mmol/L (98-107); Glucose 176 mg/dL (74-106); Sodium 125 mmol/L (136-145)
[2019-02-26 14:01] LABS: Hemoglobin 7.7 g/dL (12.2-16.2)
--- NOTE | 2019-02-26 16:51 | History & Physical Report ---
*Admission Date: 02/26/19 *Chief complaint: LUISITO< contrast reaction, anemia *History of present illness: Patient to followup her recent hospital discharge in the office today, after being admitted from contrast angioedema reaction along with contrast nephropathy. She was kept overnight at the beginning of the week and did well, but was scheduled to come back today for labs. Unfortunately, she has felt very poorly, labs indicated continuing kidney injury, she appeared dehydrated with low blood pressure and she is admitted to hospital for IV fluids, transfusion of 2 units of packed cells and further diagnostic testing as needed. She had a CT scan earlier this week to work up anemia on the orders of hematology. [facility] History I have reviewed the patient's past medical history: Yes Medical History: Reports:: Anxiety, Depression, Hypertension Denies:: Cancer, Diabetes Mellitus Type 1, Diabetes Mellitus Type 2, MRSA *Have you ever received a pneumonia vaccine?: No *Have you received a flu vaccine this season?: No Other Medical History: Reports: Arthritis, Cataracts Other Surgeries: Yes: (X2), Tubal Ligation, Other (ORAL SURGERY) Amputation: No Fractures: No - *Social History Educational Level: Completed High School Smoking Status: Never smoker Alcohol Intake: never Alcohol Intake Frequency:: other Substance Use Type: denies use *Occupational Status:: retired Housing: house Household Members: friend(s) *Travel in the last 8 weeks: None - Psychiatric History Expresses thoughts of harming self/others: None Suicide Plan Description: No Plan Pschychiatric History:: Reports:: Anxiety, Depression Family Hx:: Stroke Review of Systems - Review of Systems Review of systems:: pertinent systems reviewed and negative unless documented below - Constitutional Reports anorexia, Reports fatigue, Reports lack of energy, Reports malaise - Eyes Denies blurry vision - ENT Reports dry mouth, Reports tongue swelling, Denies abnormal hearing, Denies ble eding gums - *Cardiovascular Denies chest pain - *Respiratory Reports shortness of breath, Reports shortness of breath with activity - *Gastrointestinal Denies abdominal pain, Denies belching Meds Home Medications Medication Instructions Recorded Confirmed Type Pilocarpine HCl 5 mg PO TID 01/17/19 02/24/19 History Tizanidine HCl 1 - 2 mg PO DAILYP PRN 01/17/19 02/24/19 History mirtazapine 15 mg tablet 15 mg PO DAILY PRN #30 tab 02/12/19 02/24/19 History Losartan Potassium 50 mg PO DAILY #30 tab 02/25/19 Rx Magnesium Oxide [Magnesium] 250 mg PO DAILY 02/25/19 02/25/19 History Melatonin 10 mg PO HS 02/25/19 02/25/19 History Allergies Allergy/AdvReac Type Severity Reaction Status Date / Time carvedilol Allergy Severe rash, n/v, Verified 02/24/19 22:09 weakness, swelling Iodinated Contrast Media - Allergy Severe Weakness Verified 02/26/19 16:16 Oral and Penicillins Allergy Verified 02/24/19 22:09 Exam Vital signs and Labs for Last 24 Hours: Temp Pulse Resp BP Pulse Ox 98.3 F 66 18 145/58 H 100 02/26/19 15:57 02/26/19 15:57 02/26/19 15:57 02/26/19 15:57 02/26/19 15:57 Laboratory Results - last 24 hr 02/26/19 12:08: Sodium 125 L, Potassium 3.6, Chloride 98, Carbon Dioxide 14 L, Anion Gap 16.6 H, BUN 40 H, Creatinine 2.13 H, Estimated GFR 23 L, Est GFR ( Amer) 28 L, Glucose 176 H, Calcium 7.7 L 02/26/19 12:08: WBC 6.3 D, RBC 2.66 L, Hgb 7.7 L*, Hct 24.6 L, MCV 92.6, MCH 29.1, MCHC 31.4 L, RDW 21.2 H, Plt Count 361 D, MPV 7.5, Neut % (Auto) 65.9, Lymph % (Auto) 15.7, [place] % (Auto) 2.7, Eos % (Auto) 15.6 H, Baso % (Auto) 0.1, Neut # (Auto) 4.1, Lymph # (Auto) 1.0, [place] # (Auto) 0.2, Eos # (Auto) 1.0 H, Baso # (Auto) 0.0 02/26/19 12:12: Magnesium 1.8 I & O for Last 24 hours: Intake & Output 02/24/19 02/25/19 02/26/19 02/27/19 11:59 11:59 11:59 11:59 Intake Total 0 / 0 Balance 0 / 0 Weight 195 lb 2 oz Narrative: appears dry, tired. Patient has scattered angioedema on hands and feet that seem to be resolving. Trace ankle edema. Oropharynx dry. Lungs are clear. Throat is slightly reddened, no actual swelling. Uvula not swollen. Heart rate regular. Abdomen is soft, obese but nontender. Skin turgor is very dry and she has resolving angioedema with purplish discoloration Assessment and Plan (1) Anemia Current visit: Yes Status: Chronic Category: Medical Code(s): D64.9 - Anemia, unspecified Would benefit from transfusion... follow CT results. (2) LUISITO (acute kidney injury) Current visit: No Status: Acute Category: Medical Code(s): N17.9 - Acute kidney failure, unspecified IVF, blood transfusions as noted. check UA and urine eos (3) Allergic reaction Current visit: No Status: Resolved Qualifiers: Encounter type: subsequent encounter Qualified Code(s): T78.40XD - Allergy, unspecified, subsequent encounter Category: Medical Code(s): T78.40XA - Allergy, unspecified, initial encounter Ongoing... check wbc - IV steroids.
[2019-02-27 03:34] LABS: Hematocrit 28.7 % (37.0-47.0)
[2019-02-27 03:52] LABS: Hemoglobin 9.3 g/dL (12.2-16.2)
[2019-02-27 04:06] LABS: Microscopic, Urine URINE MICROSCOPIC (MICROSCOPIC)
[2019-02-27 04:07] LABS: Appearance,Urine CLEAR (Clear); Bilirubin,Urine Negative (Negative); Blood, Urine 2+ (Negative); Color,Urine YELLOW (Yellow); Glucose,Urine (UA) Negative (Negative); Ketones,Urine Negative (Negative); Leukocyte Esterase,Urine Negative (Negative); Protein,Urine 1+ (Negative); Specific Gravity, Urine <= 1.005 (1.005-1.030); Urobilinogen,Urine 0.2 EU/dl (0.2)
[2019-02-27 04:18] LABS: Bacteria,Urine 1+ /lpf
[2019-02-27 08:22] LABS: Anion Gap 19.7 mEq/L (5-15); Eosinophils % 0.3 % (0.1-12.0); Hematocrit 29.7 % (37.0-47.0); Hemoglobin 9.8 g/dL (12.2-16.2); Lymphocytes # 0.4 K/mm3 (0.7-4.5); Lymphocytes % 13.6 % (10-50); Mean Corpuscular HGB Conc 33.1 g/dL (31.8-35.4); Mean Platelet Volume 6.6 fl (7.4-10.4); Monocytes # 0.1 K/mm3 (0.1-1.0); Monocytes % 2.5 % (1.7-9.3); Neutrophils # 2.5 K/mm3 (1.8-7.8); Neutrophils % 83.7 % (37.0-80.0); Platelet Count 262 K/mm3 (142-424); Red Blood Count 3.34 M/mm3 (4.20-5.40)
--- NOTE | 2019-02-27 09:07 | Pharmacy Consult Notes ---
[facility] Pharmacy VTE Monitoring - Patient Demographics Admission date: 02/26/19 Report Date: 02/27/19 Time: 09:07 Allergies/Adverse Reactions: Patient Allergies carvedilol Allergy (Severe, Verified 02/24/19 22:09) rash, n/v, weakness, swelling Iodinated Contrast Media - Oral and Allergy (Severe, Verified 02/26/19 16:16) Weakness Penicillins Allergy (Verified 02/24/19 22:09) Height: 1.65 m Weight: 89.494 kg Patient Problems: Current Active Problems Anemia (Chronic) - VTE Risk Labs: VTE Related Lab Results Hgb 9.8 g/dL (12.2-16.2) L 02/27/19 07:48 Hct 29.7 % (37.0-47.0) L 02/27/19 07:48 Plt Count 262 K/mm3 (142-424) D 02/27/19 07:48 BUN 39 mg/dL (7-18) H 02/27/19 07:48 Creatinine 1.86 mg/dL (0.55-1.02) H 02/27/19 07:48 Estimated Creat Clear 41 mL/min (50-200) 02/27/19 07:48 Was VTE Risk Assessment Performed: Yes VTE Score: 3 VTE Risk Level: Low Risk - Prophylaxis VTE Prophylaxis Ordered?: Yes Types of VTE Prophylaxis: TEDS Knee High Location of Applied Device: Bilateral Lower Extremeties
--- NOTE | 2019-02-27 10:36 | Progress Note ---
Internal Medicine - PN: Subj *Date: 02/27/19 *Time: 10:33 Interval history: His Jose Luis did well overnight. No concerns on imaging or EKG. States she feels better this morning after IV fluids. Electrolytes with slight improvement. Kidney function better but still hyponatremic. Hemoglobin levels responded appropriately to 2 units of transfused blood. Remains hemodynamically stable with no chest pain. Does have some elevated blood pressures this morning, will restart home medication today. Remains asymptomatic however, no shortness of breath, no nausea or vomiting, tolerating regular diet. Exam Vital signs and Labs for Last 24 Hours: Temp Pulse Resp BP Pulse Ox 97.5 F L 90 21 183/93 H 90 L 02/27/19 08:00 02/27/19 08:00 02/27/19 08:00 02/27/19 08:00 02/27/19 08:00 Laboratory Results - last 24 hr 02/26/19 12:08: Sodium 125 L, Potassium 3.6, Chloride 98, Carbon Dioxide 14 L, Anion Gap 16.6 H, BUN 40 H, Creatinine 2.13 H, Estimated GFR 23 L, Est GFR ( Amer) 28 L, Glucose 176 H, Calcium 7.7 L 02/26/19 12:08: WBC 6.3 D, RBC 2.66 L, Hgb 7.7 L*, Hct 24.6 L, MCV 92.6, MCH 29.1, MCHC 31.4 L, RDW 21.2 H, Plt Count 361 D, MPV 7.5, Neut % (Auto) 65.9, Lymph % (Auto) 15.7, [place] % (Auto) 2.7, Eos % (Auto) 15.6 H, Baso % (Auto) 0.1, Neut # (Auto) 4.1, Lymph # (Auto) 1.0, [place] # (Auto) 0.2, Eos # (Auto) 1.0 H, Baso # (Auto) 0.0 02/26/19 12:12: Magnesium 1.8 02/26/19 17:05: Blood Type A Positive, Antibody Screen Negative, Crossmatch (AHG) See Detail 02/27/19 03:25: Hgb 9.3 L D, Hct 28.7 L 02/27/19 03:35: Urine Eosinophils Absent 02/27/19 03:35: Urine Color Yellow, Urine Appearance Clear, Urine pH 7.0, Ur Specific [place] <= 1.005, Urine Protein 1+, Urine Glucose (UA) Negative, Urine Ketones Negative, Urine Blood 2+, Urine Nitrate Negative, Urine Bilirubin Negative, Urine Urobilinogen 0.2, Ur Leukocyte Esterase Negative, Urine RBC 10- 20, Urine WBC 3-5, Ur Squamous Epith Cells 3-5, Urine Bacteria 1+ 02/27/19 07:48: WBC 3.0 L D, RBC 3.34 L D, Hgb 9.8 L, Hct 29.7 L, MCV 89.0, MCH 29.5, MCHC 33.1, RDW 19.0 H, Plt Count 262 D, MPV 6.6 L, Neut % (Auto) 83.7 H, Lymph % (Auto) 13.6, [place] % (Auto) 2.5, Eos % (Auto) 0.3, Baso % (Auto) 0.0 L, Neut # (Auto) 2.5, Lymph # (Auto) 0.4 L, [place] # (Auto) 0.1, Eos # (Auto) 0.0, Baso # (Auto) 0.0 02/27/19 07:48: Sodium 126 L, Potassium 3.7, Chloride 97 L, Carbon Dioxide 13 L, Anion Gap 19.7 H, BUN 39 H, Creatinine 1.86 H, Estimated Creat Clear 41, Estimated GFR 27 L, Est GFR ( Amer) 33 L, Glucose 139 H D, Calcium 8.0 L I & O for Last 24 hours: Intake & Output 02/24/19 02/25/19 02/26/19 02/27/19 23:59 23:59 23:59 23:59 Intake Total 360 / 483 483 / 483 Output Total 200 / 200 Balance 360 / 483 283 / 283 Weight 88.507 kg 89.494 kg Narrative: Chronically ill-appearing woman of stated age with cushingoid appearance. No acute distress on room air Patient scattered ecchymoses on arms and legs with no significant edema in upper extremities. Does have 1+ edema bilateral lower extremities to knees. Oropharynx tacky, no apparent lesions Lungs clear to auscultation, good air movement bilaterally Heart rate regular, no murmur Abdomen soft, nontender.. Skin turgor is very dry and she has resolving angioedema with purplish discoloration Assessment and Plan (1) Anemia Current visit: Yes Status: Chronic Category: Medical Code(s): D64.9 - Anemia, unspecified (2) LUISITO (acute kidney injury) Current visit: No Status: Acute Category: Medical Code(s): N17.9 - Acute kidney failure, unspecified (3) Allergic reaction Current visit: No Status: Resolved Qualifiers: Encounter type: subsequent encounter Qualified Code(s): T78.40XD - Allergy, unspecified, subsequent encounter Category: Medical Code(s): T78.40XA - Allergy, unspecified, initial encounter (4) Hyponatremia Current visit: Yes Status: Chronic Category: Medical Code(s): E87.1 - Hypo-osmolality and hyponatremia Suspect chronic due to no signs of change in mentation. Anticipate gradual improvement with fluid resuscitation. Continue sodium chloride IV fluids (5) Hypertension Current visit: No Status: Acute Qualifiers: Hypertension type: essential hypertension Qualified Code(s): I10 - Essential (primary) hypertension Category: Medical Code(s): I10 - Essential (primary) hypertension Resume home medication. We will continue to monitor. (6) Obesity (BMI 30.0-34.9) Current visit: No Status: Acute Category: Medical Code(s): E66.9 - Obesity, unspecified Complicates all aspects of her care. - Assessment and plan all Dx Assessment and Plan for all problems:: Kidney injury resolving. Blood levels appropriate really responsive to transfusion. Continue to monitor with repeat lab work this afternoon. If stable or improving, will plan for discharge later this evening. If abnormal however or no improvement, will hold to the morning and repeat labs in a.m.
[2019-02-27 16:37] VITALS: BP 159/75
[2019-02-27 18:22] LABS: Monocytes # 0.1 K/mm3 (0.1-1.0)
[2019-02-27 18:29] LABS: Anion Gap 15.1 mEq/L (5-15); Calcium 7.5 mg/dL (8.5-10.1); Eosinophils % 0.4 % (0.1-12.0); Lymphocytes # 0.5 K/mm3 (0.7-4.5); Mean Corpuscular HGB Conc 31.7 g/dL (31.8-35.4); Mean Corpuscular Volume 90.6 fl (81-99); Mean Platelet Volume 6.7 fl (7.4-10.4); Monocytes % 3.5 % (1.7-9.3); Neutrophils # 3.2 K/mm3 (1.8-7.8); Neutrophils % 84.1 % (37.0-80.0); Platelet Count 234 K/mm3 (142-424); Red Blood Count 2.98 M/mm3 (4.20-5.40); Red Cell Distribution Width 19.3 % (11.5-17.5); White Blood Count 3.9 K/mm3 (4.8-10.8)
[2019-02-27 18:31] LABS: Hemoglobin 8.6 g/dL (12.2-16.2)
--- NOTE | 2019-02-27 19:32 | Discharge Summary ---
General - General Admission date:: 02/26/19 Discharge date: 02/27/19 HPI HPI: Patient to followup her recent hospital discharge in the office today, after being admitted from contrast angioedema reaction along with contrast nephropa thy. She was kept overnight at the beginning of the week and did well, but was scheduled to come back today for labs. Unfortunately, she has felt very poorly, labs indicated continuing kidney injury, she appeared dehydrated with low blood pressure and she is admitted to hospital for IV fluids, transfusion of 2 units of packed cells and further diagnostic testing as needed. She had a CT scan earlier this week to work up anemia on the orders of hematology. Hospital Course Hospital Course: Ms. Amaya was given 2 units of red blood cells and started on IV fluid rehydration. Additionally started on steroids with holding of her blood pressure medication. Had significant improvement in her creatinine, though not quite at baseline. Responded well to 2 units. Feeling significantly better per her report. Resumed home blood pressure medication due to hypotension. Overall clinically improved. Medically stable for discharge home. Plan for repeat lab work in 3 days with encouragement of aggressive oral rehydration. Objective Vital signs: Temp Pulse Resp BP Pulse Ox 97.5 F L 92 H 20 159/75 H 100 02/27/19 16:00 02/27/19 16:00 02/27/19 16:00 02/27/19 16:00 02/27/19 16:00 Narrative: Progress note for physical exam from today. Results Labs on day of discharge: Labs from last 24 hours 02/27/19 02/27/19 02/27/19 18:10 18:10 07:48 WBC 3.9 L D RBC 2.98 L Hgb 8.6 L D Hct 27.0 L MCV 90.6 MCH 28.7 MCHC 31.7 L RDW 19.3 H Plt Count 234 MPV 6.7 L Neut % (Auto) 84.1 H Lymph % (Auto) 12.0 [place] % (Auto) 3.5 Eos % (Auto) 0.4 Baso % (Auto) 0.0 L Neut # (Auto) 3.2 Lymph # (Auto) 0.5 L [place] # (Auto) 0.1 Eos # (Auto) 0.0 Baso # (Auto) 0.0 Sodium 124 L 126 L Potassium 4.1 3.7 Chloride 99 97 L Carbon Dioxide 14 L 13 L Anion Gap 15.1 H 19.7 H BUN 40 H 39 H Creatinine 1.78 H 1.86 H Estimated Creat Clear 43 41 Estimated GFR 28 L 27 L Est GFR ( Amer) 34 L 33 L Glucose 203 H D 139 H D Calcium 7.5 L 8.0 L Urine Color Urine Appearance Urine pH Ur Specific [place] Urine Protein Urine Glucose (UA) Urine Ketones Urine Blood Urine Nitrate Urine Bilirubin Urine Urobilinogen Ur Leukocyte Esterase Urine RBC Urine WBC Ur Squamous Epith Cells Urine Bacteria Urine Eosinophils Blood Type Antibody Screen Crossmatch ([facility]) 02/27/19 02/27/19 02/27/19 07:48 03:35 03:35 WBC 3.0 L D RBC 3.34 L D Hgb 9.8 L Hct 29.7 L MCV 89.0 MCH 29.5 MCHC 33.1 RDW 19.0 H Plt Count 262 D MPV 6.6 L Neut % (Auto) 83.7 H Lymph % (Auto) 13.6 [place] % (Auto) 2.5 Eos % (Auto) 0.3 Baso % (Auto) 0.0 L Neut # (Auto) 2.5 Lymph # (Auto) 0.4 L [place] # (Auto) 0.1 Eos # (Auto) 0.0 Baso # (Auto) 0.0 Sodium Potassium Chloride Carbon Dioxide Anion Gap BUN Creatinine Estimated Creat Clear Estimated GFR Est GFR ( Amer) Glucose Calcium Urine Color Yellow Urine Appearance Clear Urine pH 7.0 Ur Specific [place] <= 1.005 Urine Protein 1+ Urine Glucose (UA) Negative Urine Ketones Negative Urine Blood 2+ Urine Nitrate Negative Urine Bilirubin Negative Urine Urobilinogen 0.2 Ur Leukocyte Esterase Negative Urine RBC 10-20 Urine WBC 3-5 Ur Squamous Epith Cells 3-5 Urine Bacteria 1+ Urine Eosinophils Absent Blood Type Antibody Screen Crossmatch ([facility]) 02/27/19 02/26/19 03:25 17:05 WBC RBC Hgb 9.3 L D Hct 28.7 L MCV MCH MCHC RDW Plt Count MPV Neut % (Auto) Lymph % (Auto) [place] % (Auto) Eos % (Auto) Baso % (Auto) Neut # (Auto) Lymph # (Auto) [place] # (Auto) Eos # (Auto) Baso # (Auto) Sodium Potassium Chloride Carbon Dioxide Anion Gap BUN Creatinine Estimated Creat Clear Estimated GFR Est GFR ( Amer) Glucose Calcium Urine Color Urine Appearance Urine pH Ur Specific [place] Urine Protein Urine Glucose (UA) Urine Ketones Urine Blood Urine Nitrate Urine Bilirubin Urine Urobilinogen Ur Leukocyte Esterase Urine RBC Urine WBC Ur Squamous Epith Cells Urine Bacteria Urine Eosinophils Blood Type A Positive Antibody Screen Negative Crossmatch ([facility]) See Detail DS: Diagnosis - Discharge Diagnosis (1) Anemia Status: Chronic (2) LUISITO (acute kidney injury) Status: Acute (3) Allergic reaction Status: Resolved (4) Hyponatremia Status: Chronic (5) Hypertension Status: Acute (6) Obesity (BMI 30.0-34.9) Status: Acute Discharge Plan - Patient Discharge Instructions ACTIVITY: Continue current activity DIET: continue same diet Additional Instructions: please consume fluids with electrolytes and salt in them, follow-up for labs on Saturday. Patient Instructions: DI for Cellulitis -- Adult, Anemia, Hyponatremia-Adult - Follow up Plan Follow up with: Hipolito Hidalgo MD [Staff Physician] - Disposition: Home, Self-Senior Care Medications: Home Medications Medication Instructions Recorded Confirmed Type [place] HCl 5 mg PO TID 01/17/19 02/27/19 History Tizanidine HCl 1 - 2 mg PO DAILYP PRN 01/17/19 02/27/19 History mirtazapine 15 mg tablet 15 mg PO HSP PRN #30 tab 02/12/19 02/27/19 History Losartan Potassium 50 mg PO DAILY #30 tab 02/25/19 02/27/19 Rx Magnesium Oxide [Magnesium] 250 mg PO DAILY 02/25/19 02/27/19 History Melatonin 10 mg PO HS 02/25/19 02/27/19 History predniSONE [Deltasone 10mg tablet] 20 mg PO BID 3 Days #12 tab 02/27/19 Rx Prescriptions/Medication Reconciliation: New predniSONE [Deltasone 10mg tablet] 20 mg PO BID 3 Days #12 tab Continued mirtazapine 15 mg tablet 15 mg PO HSP PRN #30 tab PRN Reason: Sleep Tizanidine HCl 1 - 2 mg PO DAILYP PRN PRN Reason: Muscle Spasm [place] HCl 5 mg PO TID Magnesium Oxide [Magnesium] 250 mg PO DAILY Melatonin 10 mg PO HS Losartan Potassium 50 mg PO DAILY #30 tab - Problem Reconciliation Problems Reviewed?: Yes
== END 2019-02-27 20:08 | disposition home or self-care (01) ==
LOC: 2ND 12:07 → LAB 12:07
PROVIDERS: ADMIT Internal Medicine Adolescent Medicine; ATTEND Internal Medicine Adolescent Medicine
DX: I10 Essential (primary) hypertension; D64.9 Anemia, unspecified; Z88.0 Allergy status to penicillin; E66.9 Obesity, unspecified; Z79.899 Other long term (current) drug therapy; E87.1 Hypo-osmolality and hyponatremia; N17.9 Acute kidney failure, unspecified; Z68.32 Body mass index [BMI] 32.0-32.9, adult; I95.9 Hypotension, unspecified; Z91.041 Radiographic dye allergy status
CPT/HCPCS: 36415; 71010; 71045; 80048; 81001; 83735; 85014; 85018; 85025; 86850; 87205; 93005; G0378; P9016

== ENCOUNTER → 2019-06-05 11:49 | Outpatient (CLI) | payer MEDICARE, MEDICAID, SELFPAY ==
[2019-06-05 12:42] LABS: Basophils % 0.8 % (0.1-2.0); Eosinophils # 0.2 K/mm3 (0.0-0.4); Eosinophils % 3.8 % (0.1-12.0); Hematocrit 24.9 % (37.0-47.0); Lymphocytes # 0.7 K/mm3 (0.7-4.5); Mean Corpuscular HGB Conc 30.6 g/dL (31.8-35.4); Mean Corpuscular Hemoglobin 29.8 pg (27.0-31.2); Mean Corpuscular Volume 97.3 fl (81-99); Mean Platelet Volume 7.9 fl (7.4-10.4); Monocytes # 0.2 K/mm3 (0.1-1.0); Monocytes % 4.2 % (1.7-9.3); Neutrophils # 3.1 K/mm3 (1.8-7.8); Neutrophils % 74.1 % (37.0-80.0); Platelet Count 376 K/mm3 (142-424); Red Blood Count 2.56 M/mm3 (4.20-5.40); Red Cell Distribution Width 17.7 % (11.5-17.5); White Blood Count 4.2 K/mm3 (4.8-10.8)
[2019-06-05 12:54] LABS: Hemoglobin 7.6 g/dL (12.2-16.2)
[2019-06-05 13:24] LABS: Anion Gap 13.1 mEq/L (5-15); Blood Urea Nitrogen 31 mg/dL (7-18); Carbon Dioxide 17 mmol/L (21.0-32.0); Chloride 109 mmol/L (98-107); Creatinine,Serum 1.31 mg/dL (0.55-1.02); Estimated Glomerular Filt Rate 40 ml/min (>60); GFR (African American) 49 ML/MIN (>60); Potassium 4.1 mmoL/L (3.5-5.1); Sodium 135 mmol/L (136-145)
[2019-06-05 13:37] LABS: Glucose 87 mg/dL (74-106)
== END ==
PROVIDERS: PCP Internal Medicine Adolescent Medicine; Visit Provider Internal Medicine Cardiovascular Disease
DX: E78.5 Hyperlipidemia, unspecified (principal); I07.1 Rheumatic tricuspid insufficiency; I27.20 Pulmonary hypertension, unspecified; I34.0 Nonrheumatic mitral (valve) insufficiency; I50.30 Unspecified diastolic (congestive) heart failure; I50.9 Heart failure, unspecified; R60.9 Edema, unspecified; M05.79 Rheumatoid arthritis with rheumatoid factor of multiple sites without organ or systems involvement
CPT/HCPCS: 36415; 80048; 83880; 85025

== ENCOUNTER → 2019-06-10 12:38 | Outpatient (CLI) | payer MEDICARE, MEDICAID, SELFPAY ==
[2019-06-10 13:22] LABS: Basophils % 0.4 % (0.1-2.0); Eosinophils # 0.1 K/mm3 (0.0-0.4); Eosinophils % 3.3 % (0.1-12.0); Lymphocytes # 0.5 K/mm3 (0.7-4.5); Lymphocytes % 14.8 % (10-50); Mean Corpuscular HGB Conc 31.3 g/dL (31.8-35.4); Mean Corpuscular Hemoglobin 30.2 pg (27.0-31.2); Mean Corpuscular Volume 96.4 fl (81-99); Mean Platelet Volume 8.3 fl (7.4-10.4); Monocytes # 0.2 K/mm3 (0.1-1.0); Monocytes % 4.7 % (1.7-9.3); Neutrophils # 2.8 K/mm3 (1.8-7.8); Neutrophils % 76.8 % (37.0-80.0); Platelet Count 360 K/mm3 (142-424); Red Blood Count 2.39 M/mm3 (4.20-5.40); Red Cell Distribution Width 18.2 % (11.5-17.5); White Blood Count 3.7 K/mm3 (4.8-10.8)
[2019-06-10 13:28] LABS: Hemoglobin 7.2 g/dL (12.2-16.2)
[2019-06-10 13:29] LABS: Hematocrit 23.1 % (37.0-47.0)
== END ==
PROVIDERS: Visit Provider Internal Medicine Adolescent Medicine
DX: D64.9 Anemia, unspecified (principal)
CPT/HCPCS: 36415; 85025; 86850

== ENCOUNTER 2019-06-11 08:45 | Outpatient (CLI) | payer MEDICARE, MEDICAID, SELFPAY ==
[2019-06-11] VITALS (21 sets, daily range): BP systolic 109–156; BP diastolic 61–87; PULSE 67–87; RESP 16–18; TEMP 36.5–36.9; O2SAT 97–100; BMI 36.1
--- NOTE | 2019-06-11 14:50 | PC.NURSE ---
06/11/19 0933 Transfusion of first unit of blood initiated at this time. VSS. Lungs CTA. Pt denies complaints. Pt verbalizes understanding of s/s transfusion reaction. IV patent. Resp easy/reg. Edema 1-2+ B/L legs/feet, 1+ B/L arms. Pt reports within normal for her. Feet elevated. No shortness of breath. 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 1033 Tolerating 1st unit of blood well with no problems and no s/s transfusion reaction noted. VSS. Resp easy/reg. Lungs remain CTA. Pt denies any complaints or problems/concerns. Pt has dozed at intervals. Skin warm/dry to touch. No increase noted in edema to legs,feet,arms present on arrival. Pt is to receive IV Lasix between units of blood. 1125 Transfusion of 1st unit of blood complete. Pt has tolerated blood well with no problems and no s/s transfusion reaction noted. VSS. Resp easy/reg. Denies c/o. No increase in edema. 1139 Pt med with Lasix 60mg IV as ordered between units of blood. 1159 Transfusion of 2nd unit of blood initiated at this time. VSS. Lungs remain CTA with resp easy/reg. Skin warm/dry to touch. No increase in edema present on arrival to infusion dept prior to initiation of blood transfusion. Reviewed s/s of transfusion reaction with pt/pt again verbs understanding of same. 1359 Patient tolerating transfusion of 2nd unit of blood well with no problems noted. No s/s transfusion reaction. Patient denies any complaints with frequent checks per nursing. VSS. Resp easy/reg. IV patent. Edema unchanged. 1407 Transfusion of 2nd unit of blood complete at this time. Patient has tolerated blood transfusion with no s/s reaction/ no problems noted. Resp easy/reg. VSS. Lungs CTA. Edema unchanged. Patient continues to deny any complaints or concerns. Family has been at bedside at intervals during transfusion.
[2019-06-11 15:29] LABS: Hematocrit 34.9 % (37.0-47.0)
--- NOTE | 2019-06-11 15:39 | PC.NURSE ---
06/11/19 1507 1 hour post transfusion H&H drawn 1520 Received results of 1 hour post transfusion H&H from lab/ 11.0/34.9. Patient discharged home/stable with no problems and no s/s transfusion reaction noted.
== END 2019-06-11 15:25 | disposition home or self-care (01) ==
LOC: INF 08:45
PROVIDERS: Visit Provider Internal Medicine Adolescent Medicine
DX: D64.9 Anemia, unspecified (principal)
CPT/HCPCS: 36415; 36430; 85014; 85018; 96374; P9016

== ENCOUNTER → 2019-07-30 13:18 | Outpatient (CLI) | payer MEDICARE, MEDICAID, SELFPAY ==
[2019-07-30 13:35] LABS: Hematocrit 26.4 % (37.0-47.0)
[2019-07-30 13:52] LABS: Hemoglobin 7.6 g/dL (12.2-16.2)
== END ==
PROVIDERS: Visit Provider Nurse Practitioner Family
DX: D64.9 Anemia, unspecified (principal)
CPT/HCPCS: 36415; 85014; 85018

== ENCOUNTER → 2019-08-19 11:39 | Outpatient (POV) | payer MEDICARE, MEDICAID, SELFPAY | PROVIDERS: Visit Provider Internal Medicine Nephrology | DX: Z00.00 Encounter for general adult medical examination without abnormal findings (principal) ==

== ENCOUNTER → 2019-09-18 13:44 | Outpatient (CLI) | payer MEDICARE, MEDICAID, SELFPAY ==
--- NOTE | 2019-09-18 13:49 | US_ITS ---
PROCEDURE: US KIDNEY CLINICAL INDICATION: CKD III COMPARISON: ABDPELWW CT abdomen pelvis wo/w con from 02/24/2019 FINDINGS: The right kidney is [id number]. No hydronephrosis, cortical thinning, or renal mass or perinephric fluid collection is evident. The left kidney is [id number]. No hydronephrosis, cortical thinning, or renal mass or perinephric fluid collection is evident. There is moderate the diffuse ascites. IMPRESSION: 1. Unremarkable bilateral renal ultrasound. 2. Moderate amount of ascites Dictated by: Xavier Lovell MD 09/18/2019 15:59 Electronically signed by Xavier Lovell MD in [place] 09/18/2019 15:59
== END ==
PROVIDERS: PCP Internal Medicine Adolescent Medicine; Visit Provider Internal Medicine Nephrology
DX: N18.3 Chronic kidney disease, stage 3 (moderate) (principal)
CPT/HCPCS: 76770

== ENCOUNTER → 2019-09-23 13:31 | Outpatient (POV) | payer MEDICARE, MEDICAID, SELFPAY | PROVIDERS: PCP Internal Medicine Nephrology; Visit Provider Internal Medicine Nephrology | DX: Z00.00 Encounter for general adult medical examination without abnormal findings (principal) ==

== ENCOUNTER 2019-11-04 21:34 | Inpatient (IN) | payer MEDICARE, MEDICAID, SELFPAY ==
--- NOTE | 2019-11-04 21:22 | ECG_ITS ---
APPROVED REPORT Exam: Resting ECG HR:71 bpm ECG Measurements Heart Rate 71 AXES OR 162 P 50 QRSd 94 QRS 102 QT 418 T 1 QTc 454 <Conclusion> Sinus rhythm with premature supraventricular complexes,Motion artifact Rightward axis Cannot rule out Anterior infarct, age undetermined Abnormal ECG Electronically signed by : Davie Goff, 11/06/2019 18:03:49
[2019-11-04 21:34] VITALS: BP 180/105; PULSE 69; RESP 19; TEMP 36.8; O2SAT 100; BMI 29.0
--- NOTE | 2019-11-04 21:42 | CT_ITS ---
PROCEDURE: CT ABDOMEN PELVIS WO CON CLINICAL INDICATION: abd. pain Left upper quadrant pain with nausea and vomiting COMPARISON: ABDPELWW CT abdomen pelvis wo/w con from 02/24/2019 TECHNIQUE: Axial images obtained with sagittal and coronal reformats. All CT scans at the facility use one or more dose reduction, viz: automated exposure control, ma/kV adjustment per patient size (including targeted exams where dose is matched to indication, i.e. head), or iterative reconstruction technique. FINDINGS: LOWER THORAX: There is a small right pleural effusion with right basilar atelectasis and trace left-sided effusion with left basilar atelectasis. Mitral valve annular calcifications are noted. ABDOMEN & PELVIS: The liver, spleen, adrenal glands, and kidneys have an unremarkable appearance aside from 2 mm stone in the lower pole of the left kidney. There is cholelithiasis. There is a heterogeneous soft tissue mass in the head of the pancreas measuring approximately 5 cm. This has developed since the previous exam. This mass is poorly defined especially without IV and oral contrast. There is mild amount of retained colonic feces. There is a Cosby catheter present no evidence of appendicitis or diverticulitis. There is mild thickening of the presacral fat.. The bowel gas pattern is nonspecific. Moderate amount stool is present in the right colon. There is an umbilical hernia which contains fat and some small bowel loops. There is eventration of the lower abdominal wall. There is diffuse subcutaneous edema/anasarca. Small amount fluid is present in the pelvis. There are degenerative changes in the lumbar spine IMPRESSION: 1. There is a 5 cm heterogeneous mass in the head of the pancreas. Neoplasm is considered. A phlegmonous area from acute pancreatitis would be included in the differential diagnosis. Consider dedicated CT of the pancreas without and with contrast and with oral contrast. 2. Cholelithiasis. 3. Diffuse anasarca. 4. Umbilical hernia containing a loop of small bowel 5. Bilateral effusions and bibasilar atelectasis Dictated by: Xavier Lovell MD 11/05/2019 09:00 Electronically signed by Xavier Lovell MD in [place] 11/05/2019 09:00
--- NOTE | 2019-11-04 21:42 | XR_ITS ---
PROCEDURE: XR CHEST AP CLINICAL HISTORY: chest pain COMPARISON: CXR2V XR chest 2V from 12/20/[address] angio chest from 01/17/2019 Chest from 01/17/2019 CT ABDOMEN PELVIS WO CON from 11/04/2019 FINDINGS: Cardiomegaly. There is mild pulmonary venous congestion consistent with mild CHF. Elevated right hemidiaphragm with increased density in the right lower lobe consistent with atelectasis or infiltrate with small bilateral effusions. . IMPRESSION: CHF with small bilateral effusions and right basilar airspace disease Dictated by: Xavier Lovell MD 11/05/2019 08:19 Electronically signed by Xavier Lovell MD in [place] 11/05/2019 08:19
[2019-11-04 21:57] LABS: Basophils % 0.5 % (0.1-2.0); Eosinophils # 0.1 K/mm3 (0.0-0.4); Eosinophils % 2.4 % (0.1-12.0); Hematocrit 26.3 % (37.0-47.0); Hemoglobin 8.5 g/dL (12.2-16.2); Lymphocytes # 0.6 K/mm3 (0.7-4.5); Lymphocytes % 11.5 % (10-50); Mean Corpuscular HGB Conc 32.2 g/dL (31.8-35.4); Mean Corpuscular Hemoglobin 29.8 pg (27.0-31.2); Mean Corpuscular Volume 92.5 fl (81-99); Mean Platelet Volume 7.3 fl (7.4-10.4); Monocytes # 0.3 K/mm3 (0.1-1.0); Monocytes % 4.9 % (1.7-9.3); Neutrophils # 4.1 K/mm3 (1.8-7.8); Neutrophils % 80.8 % (37.0-80.0); Platelet Count 357 K/mm3 (142-424); Red Blood Count 2.85 M/mm3 (4.20-5.40); Red Cell Distribution Width 15.6 % (11.5-17.5)
[2019-11-04 22:03] LABS: Chloride 97 mmol/L (98-107); Sodium 128 mmol/L (136-145)
[2019-11-04 22:04] LABS: Potassium 3.9 mmoL/L (3.5-5.1)
[2019-11-04 22:06] LABS: Amylase 89 U/L (30-110); Blood Urea Nitrogen 30 mg/dl (7-17); Creatinine Clearance Estimated 50 mL/min (50-200); Estimated Glomerular Filt Rate 37 ml/min (>60); GFR (African American) 45 ML/MIN (>60)
[2019-11-04 22:07] LABS: Alanine Aminotransferase 24 U/L (12-78); Albumin Level 3.1 g/dl (3.5-5.0); Alkaline Phosphatase 177 U/L (38-126); Anion Gap 11.9 mEq/L (5-15); Aspartate Amino Transferase 38 U/L (14-36); Bilirubin,Indirect 0.4 mg/dL (0.0-0.9); Bilirubin,Total 0.4 mg/dl (0.2-1.3); Bilirubin,Unconjugated 0.3 mg/dL (0.0-1.1); Calcium 8.9 mg/dl (8.4-10.2); Carbon Dioxide 23 mmol/L (22.0-30.0); Glucose 158 mg/dl (74-100); Lipase 548 U/L (23-300); Total Protein,Serum 6.5 g/dl (6.3-8.2)
[2019-11-04 22:10] LABS: Lactic Acid 2.2 mmol/L (0.7-2.1)
[2019-11-04 22:17] LABS: Microscopic, Urine URINE MICROSCOPIC (MICROSCOPIC)
[2019-11-04 22:23] LABS: Appearance,Urine CLEAR (Clear); Bilirubin,Urine Negative (Negative); Blood, Urine 3+ (Negative); Color,Urine YELLOW (Yellow); Glucose,Urine (UA) TRACE (Negative); Ketones,Urine Negative (Negative); Leukocyte Esterase,Urine 1+ (Negative); Nitrate,Urine Negative (Negative); Protein,Urine 3+ (Negative); Urobilinogen,Urine 0.2 EU/dl (0.2)
[2019-11-04 22:24] LABS: Troponin I < 0.01 ng/ml (0.00-0.034)
--- NOTE | 2019-11-04 22:29 | HMH.EDNVD ---
ED Disposition Clinical Impression: Renal insufficiency, Hyponatremia, Abnormal EKG Pancreatitis, acute Qualifiers: Pancreatitis type: biliary Acute pancreatitis complication: no infection or necrosis Qualified Code(s): K85.10 - Biliary acute pancreatitis without necrosis or infection Cholelithiasis Qualifiers: Cholelithiasis location: gallbladder Cholecystitis presence: without cholecystitis Biliary obstruction: without biliary obstruction Qualified Code(s): K80.20 - Calculus of gallbladder without cholecystitis without obstruction Anemia Qualifiers: Anemia type: unspecified type Qualified Code(s): D64.9 - Anemia, unspecified Disposition: Admitted As Inpatient Condition on Discharge: Good Referrals: Provider,Referral, [Referring] - - Critical Care Critical Care Time: No Attestation: On 11/04/19, the high probability of a clinically significant, sudden or life threatening deterioration of the following system(s) required my full and direct attention, intervention and personal management. The time I documented below is in addition to time spent performing reported procedures but includes the following listed in this critical care notation. Medical Decision Making - Medical Records Medical records reviewed: Yes: I reviewed the patient's medical records. - Khari Inquiry Pt receiving controlled substance: No Vital Signs: 11/04/19 21:34 11/04/19 22:34 11/04/19 23:00 Temperature 98.3 F Temperature Source Oral Pulse Rate [Left Radial] 69 81 82 Respiratory Rate 19 16 18 Blood Pressure [Right Arm] 180/105 H 199/96 H 193/98 H Blood Pressure Mean [Right Arm] 130 130 129 Blood Pressure Source [Right Arm] Automatic Cuff Automatic Cuff Automatic Cuff Blood Pressure Position [Right Arm] Sitting Sitting Supine 02 Sat by Pulse Oximetry 100 96 98 Oxygen Delivery Method Room Air Room Air Room Air - Lab Data Lab results reviewed: Yes: I reviewed the patient's lab results. Lab Results 11/04/19 21:44: WBC 5.0, RBC 2.85 L, Hgb 8.5 L, Hct 26.3 L, MCV 92.5, MCH 29.8, MCHC 32.2, RDW 15.6, Plt Count 357, MPV 7.3 L, Neut % (Auto) 80.8 H, Lymph % (Auto) 11.5, [place] % (Auto) 4.9, Eos % (Auto) 2.4, Baso % (Auto) 0.5, Neut # (Auto) 4.1, Lymph # (Auto) 0.6 L, [place] # (Auto) 0.3, Eos # (Auto) 0.1, Baso # (Auto) 0.0 11/04/19 21:44: Sodium 128 L, Potassium 3.9, Chloride 97 L, Carbon Dioxide 23, Anion Gap 11.9, BUN 30 H, Creatinine 1.40 H, Estimated Creat Clear 50, Estimated GFR 37 L, Est GFR ( Amer) 45 L, Glucose 158 H, Calcium 8.9, Troponin I < 0.01, Amylase 89 11/04/19 21:44: Lactate 2.2 H 11/04/19 21:44: Total Bilirubin 0.4, Direct Bilirubin 0.0, Conjugated Bilirubin 0.0, Indirect Bilirubin 0.4, Unconjugated Bilirubin 0.3, AST 38 H, ALT 24, Alkaline Phosphatase 177 H, Total Protein 6.5, Albumin 3.1 L, Lipase 548 H 11/04/19 22:09: Urine Color Yellow, Urine Appearance Clear, Urine pH 8.0, Ur Specific [place] 1.020, Urine Protein 3+, Urine Glucose (UA) Trace, Urine Ketones Negative, Urine Blood 3+, Urine Nitrate Negative, Urine Bilirubin Negative, Urine Urobilinogen 0.2, Ur Leukocyte Esterase 1+ A, Urine RBC 20-50, Urine WBC 3-5, Ur Squamous Epith Cells Occasional, Urine Bacteria Trace Result diagrams: 11/04/19 21:44 11/04/19 21:44 Orders (Tests/Meds): ED MEDICATIONS Generic Name Dose Route Start Last Admin Trade Name Freq PRN Reason Stop Dose Admin Sodium Chloride 1,000 mls @ 999 mls/hr 11/04/19 22:15 11/04/19 22:13 Sod Chlor 0.9% 1000ml Bag IV 11/04/19 23:15 999 mls/hr .[id number] THEA Administration Discontinued Medications Generic Name Dose Route Start Last Admin Trade Name Freq PRN Reason Stop Dose Admin Morphine Sulfate 4 mg 11/04/19 22:12 11/04/19 22:12 Morphine 4mg/Ml Syringe IV 11/04/19 22:13 4 mg ONCE ONE Administration Ondansetron HCl 4 mg 11/04/19 22:12 11/04/19 22:13 Zofran 4mg/2ml Vial IV 11/04/19 22:13 4 mg ONCE ONE Administration ORDERS Category Date Time S
[2019-11-04 22:31] LABS: Bacteria,Urine Trace /lpf; RBC,Urine 20-50 #/hpf (0-3); Squamous Epithelial Cell,Urine Occasional #/hpf (0-5)
[2019-11-04 22:34] VITALS: BP 199/96; PULSE 81; RESP 16; O2SAT 96
[2019-11-04 23:00] VITALS: BP 193/98; PULSE 82; RESP 18; O2SAT 98
--- NOTE | 2019-11-04 23:03 | PC.NURSE ---
notified MD of HTN. no new orders at this time.
--- NOTE | 2019-11-04 23:29 | PC.NURSE ---
this nurse went to the parking lot to update the pts family on the pts condition and that we would be keeping her for treatment on pancreatitis and gall stones. the family would like to set up the password [place] with the pt to stay updated on her status
[2019-11-04 23:30] VITALS: BP 167/103; PULSE 71; RESP 16; O2SAT 97
--- NOTE | 2019-11-04 23:47 | PC.NURSE ---
report called to ria nice
[2019-11-05] VITALS (9 sets, daily range): BP systolic 143–198; BP diastolic 57–100; PULSE 78–90; RESP 16–20; TEMP 36.4–37.1; O2SAT 90–100; BMI 28.0
--- NOTE | 2019-11-05 00:05 | PC.NURSE ---
MD DENTURE FINISHER AWARE OF HTN AT THIS TIME. NO NEW ORDERS.
--- NOTE | 2019-11-05 00:13 | PC.NURSE ---
MD notified of pts persistent HTN. this nurse asked MD if he wanted any additional medication to be given. no new orders at this time.
--- NOTE | 2019-11-05 00:21 | PC.NURSE ---
Her daughter wanted it to be known that the pt sees Jose F Arcos for her kidneys.
[2019-11-05 01:50] LABS: Reflex Lactic Add Lactic Reflex
--- NOTE | 2019-11-05 01:53 | PC.NURSE ---
LATE ENTRY -0007 -PT ARRIVED TO THE FLOOR VIA STRETCHER FROM ED DEPARTMENT.
[2019-11-05 01:57] LABS: Troponin I < 0.01 ng/ml (0.00-0.034)
[2019-11-05 02:28] LABS: Lactic Acid Follow Up (RFLX 1) 0.7 mmol/L (0.7-2.1)
[2019-11-05 04:56] LABS: Chloride 100 mmol/L (98-107); Sodium 129 mmol/L (136-145)
[2019-11-05 04:58] LABS: Blood Urea Nitrogen 28 mg/dl (7-17)
[2019-11-05 04:59] LABS: Calcium 8.3 mg/dl (8.4-10.2); Carbon Dioxide 25 mmol/L (22.0-30.0); Creatinine Clearance Estimated 50 mL/min (50-200); Estimated Glomerular Filt Rate 41 ml/min (>60); GFR (African American) 49 ML/MIN (>60); Glucose 154 mg/dl (74-100); Magnesium 1.8 mg/dl (1.6-2.3)
[2019-11-05 05:14] LABS: Troponin I < 0.01 ng/ml (0.00-0.034)
[2019-11-05 05:17] LABS: Basophils % 0.2 % (0.1-2.0); Eosinophils % 0.3 % (0.1-12.0); Lymphocytes # 0.4 K/mm3 (0.7-4.5); Lymphocytes % 5.8 % (10-50); Mean Corpuscular HGB Conc 31.7 g/dL (31.8-35.4); Mean Corpuscular Hemoglobin 30.2 pg (27.0-31.2); Mean Platelet Volume 7.5 fl (7.4-10.4); Monocytes # 0.2 K/mm3 (0.1-1.0); Monocytes % 3.5 % (1.7-9.3); Neutrophils # 5.7 K/mm3 (1.8-7.8); Neutrophils % 90.2 % (37.0-80.0); Platelet Count 291 K/mm3 (142-424); Red Blood Count 2.45 M/mm3 (4.20-5.40); Red Cell Distribution Width 15.7 % (11.5-17.5); White Blood Count 6.4 K/mm3 (4.8-10.8)
[2019-11-05 05:26] LABS: Hemoglobin 7.4 g/dL (12.2-16.2); Lipase 970 U/L (23-300)
[2019-11-05 05:27] LABS: Hematocrit 23.3 % (37.0-47.0); MANUAL DIFFERENTIAL MANUAL DIFFERENTIAL (MANUAL DIFF)
[2019-11-05 06:18] LABS: Lymphocytes % 2 % (10-50); Monocytes % 3 % (2-9); Neutrophils % 94 % (42-76); Total Cells Counted 100
[2019-11-05 06:19] LABS: Ovalocytes 1+; Platelet Estimate Normal
--- NOTE | 2019-11-05 06:29 | PC.NURSE ---
A&O X4. PT C/O PAIN IN ABDOMINAL REGION RATING 10/10. ADMINISTERED MORPHINE PER SEP X2 T/O SHIFT. UPON REASSESSMENT PT NOTED RESTING WITH EYES CLOSED WITH NO FURTHER C/O PAIN. PT DID STATE HAVING NAUSEA. ADMINISTERED ZOFRAN PER SEP X1. UPON REASSESSMENT PT NOTED RESTING IN BED WITH EYES CLOSED. NO FURTHER NAUSEA COMPLAINTS THUS FAR. TOLERATED RA WELL. NSR NOTED ON MANAGER MEETING T/O SHIFT. REMAINS NPO FOR SX CONSULT THIS AM. VSS. HTN NOTED T/O SHIFT. ER MD MADE AWARE OF B/P PRIOR TO TRANSPORT TO UNIT, NO NEW ORDERS. WILL CONTINUE TO MONITOR. REMAINS SAFE. CALL LIGHT WITHIN REACH. WILL CONTINUE TO MONITOR.
--- NOTE | 2019-11-05 07:34 | P.CONPHA_ITS ---
[facility] Pharmacy VTE Monitoring - Patient Demographics Admission date: 11/05/19 Report Date: 11/05/19 Time: 07:34 Allergies/Adverse Reactions: Patient Allergies carvedilol Allergy (Severe, Verified 11/05/19 00:13) rash, n/v, weakness, swelling Iodinated Contrast Media Allergy (Severe, Verified 11/05/19 00:13) Weakness Penicillins Allergy (Verified 11/05/19 00:13) Height: 1.65 m Weight: 76.345 kg Patient Problems: Current Active Problems Pancreatitis, acute (Acute) Cholelithiasis (Acute) Abnormal EKG (Acute) Renal insufficiency (Acute) Anemia (Chronic) Hyponatremia (Chronic) - VTE Risk Labs: VTE Related Lab Results Hgb 7.4 g/dL (12.2-16.2) L* 11/05/19 04:15 Hct 23.3 % (37.0-47.0) L* 11/05/19 04:15 Plt Count 291 K/mm3 (142-424) 11/05/19 04:15 BUN 28 mg/dl (7-17) H 11/05/19 04:15 Creatinine 1.30 mg/dl (0.52-1.04) H 11/05/19 04:15 Estimated Creat Clear 50 mL/min (50-200) 11/05/19 04:15 Was VTE Risk Assessment Performed: Yes VTE Score: 2 VTE Risk Level: Very Low Risk Clinical Trial Participant: No - Prophylaxis VTE Prophylaxis Ordered?: Yes Types of VTE Prophylaxis: TEDS Knee High
--- NOTE | 2019-11-05 08:00 | US_ITS ---
PROCEDURE: US GALLBLADDER CLINICAL INDICATION: abd pain- abn ct Abdominal pain COMPARISON: CT ABDOMEN PELVIS WO CON from 11/04/2019 FINDINGS: Pancreas: There is a heterogeneous mass in the head of the pancreas which measures approximately 5 cm by 4 x 3 cm Liver: Unremarkable. There is appropriate direction of blood flow within the portal vein. The portal vein is somewhat prominent at 16 mm. Right kidney: Unremarkable appearing. No hydronephrosis. Gallbladder: Gallbladder wall is thickened and the gallbladder is contracted. There is shadowing from the gallbladder suggesting stones. Common bile duct is normal at 4 mm. The gallbladder wall measures up to 1 cm in thickness. No pericholecystic fluid is evident. There is a right pleural effusion and there is a small amount of fluid in the perihepatic region IMPRESSION: 1. Contracted gallbladder with thickened wall with cholelithiasis. 2. 5 x 4 cm mass of the pancreatic head. Would recommend CT of the abdomen and pelvis without and with contrast with pancreatic protocol with IV and oral contrast 3. Right pleural effusion with a small amount of ascites noted Dictated by: Xavier Lovell MD 11/05/2019 08:40 Electronically signed by Xavier Lovell MD in [place] 11/05/2019 08:40
--- NOTE | 2019-11-05 08:08 | HMH.PHAINT ---
HOME MEDICATION RECONCILIATION COMPLETED USING LIST FROM HOME PHARMACY AND LIST FROM [facility] INTERNAL MEDICINE OFFICE
--- NOTE | 2019-11-05 08:09 | HMH.HP ---
*Admission Date: 11/05/19 *Chief complaint: abdominal pain *History of present illness: Ms. Amaya is a 69-year-old female with long-standing dizziness, fatigue, anemia, chronic kidney disease, Sjogren's disease. She presented to the ER yesterday due to worsening abdominal pain and nausea after eating. States pain is quite significant in left upper abdomen. Her family came to check on her because of this complaint and found that not only was she in pain but her blood pressure was exceptionally elevated. They brought her to the ER for further assessment. On assessment in the ER, found to be hypertensive, labs concerning for pancreatitis with elevated lipase, chronic anemia that is fairly stable for her. She was admitted to medicine for further management of pancreatitis. CT of her abdomen showed concern for calcium stones in her gallbladder. Surgery was consulted, appreciate recommendations, they are seeing patient this morning. On assessment this morning she states her pain is a little bit better however noted to have significant hypertension overnight. Denies any vomiting this morning but does still feel nauseous. Hemoglobin noted to drop a point to 7.4. Kidney function at baseline today. [facility] History I have reviewed the patient's past medical history: Yes Medical History: Reports:: Anxiety, Congestive Heart Failure, Depression, Hypertension, Renal Disease Denies:: Cancer, Diabetes Mellitus Type 1, Diabetes Mellitus Type 2, MRSA *Have you ever received a pneumonia vaccine?: No *Have you received a flu vaccine this season?: No Other Medical History: Reports: Anemia, Arthritis, Cataracts, Sinus Problems Laterality Cases: Bilateral: Cataract Other Surgeries: Yes: , Tubal Ligation, Other Amputation: No Fractures: No - *Social History Educational Level: Completed High School Smoking Status: Never smoker Alcohol Intake: never Alcohol Intake Frequency:: other Substance Use Type: denies use *Occupational Status:: retired Housing: house Household Members: friend(s) *Travel in the last 8 weeks: None - Psychiatric History Pschychiatric History:: Reports:: Anxiety, Depression Family Hx:: Hyperlipidemia, Stroke Review of Systems - Review of Systems Review of systems:: pertinent systems reviewed and negative unless documented below (14 point review of systems performed, pertinent positives and negatives as per HPI) - *Neurologic Denies localized weakness, Denies headache(s), Denies seizure-like activity Meds Home Medications Medication Instructions Recorded Confirmed Type citalopram 20 mg tablet 20 mg PO DAILY 11/08/19 04/16/20 History Cholecalciferol (Vitamin D3) 1,000 unit PO BID 06/11/19 11/05/19 History [Vitamin D3 1,000 Unit Cap] pilocarpine HCl 5 mg tablet 5 mg PO TID tab 06/12/19 11/05/19 History sodium bicarbonate 650 mg tablet 1,300 mg PO BID tab 09/04/19 11/05/19 History Furosemide [Furosemide 80mg Tab] 80 mg PO BID 11/05/19 11/05/19 History Losartan Potassium 100 mg PO DAILY 11/05/19 11/05/19 History metOLazone [Metolazone 5mg Tab] 5 mg PO DAILY 11/05/19 11/05/19 History Allergies Allergy/AdvReac Type Severity Reaction Status Date / Time carvedilol Allergy Severe rash, n/v, Verified 11/05/19 00:13 weakness, swelling Iodinated Contrast Media Allergy Severe Weakness Verified 11/05/19 00:13 Penicillins Allergy Verified 11/05/19 00:13 Exam Vital signs and Labs for Last 24 Hours: Temp Pulse Resp BP Pulse Ox 97.6 F 83 20 172/100 H 100 11/05/19 04:00 11/05/19 04:00 11/05/19 04:00 11/05/19 04:00 11/05/19 04:00 Laboratory Results - last 24 hr 11/04/19 21:44: WBC 5.0, RBC 2.85 L, Hgb 8.5 L, Hct 26.3 L, MCV 92.5, MCH 29.8, MCHC 32.2, RDW 15.6, Plt Count 357, MPV 7.3 L, Neut % (Auto) 80.8 H, Lymph % (Auto) 11.5, [place] % (Auto) 4.9, Eos % (Auto) 2.4, Baso % (Auto) 0.5, Neut # (Auto) 4.1, Lymph # (Auto) 0.6 L, [place] # (Auto) 0.3, Eos # (Auto) 0.1, Baso # (Auto) 0.0 11/04/19
--- NOTE | 2019-11-05 08:47 | HMH.GSCON ---
*Admission Date: 11/05/19 *Reason for consult:: Possible gallstone pancreatitis *History of present illness: This is a 69-year-old female seen in consultation after presenting emergency department with increasing abdominal pain. Evaluation included a CT scan and laboratory test which confirmed biochemical pancreatitis and possible gallstones. The surgical service was consulted for further evaluation. She does have a complex past medical history including congestive heart failure, chronic renal disease, and fairly severe chronic anemia. She states that she is undergoing evaluation for anemia. She refuses colonoscopy. She states that she currently feels a little bit better . Information from the emergency department evaluation forwarded below: Description of Symptoms (Recalled from ER Triage Doc. by RN): pt brought in by family with epigastric pain that radiates to her back. pt is nauseous and stated that she just started feeling this way after she ate tonight. pt is tender throughout her abdomen during palpation. pt unable to answer history questions at this time due to pain and stated to just ask her daughters. pt with acute onset of upper abd pain with vomiting - no fever and no diarrhea - no etoh MD complaint: nausea, vomiting, abdominal pain Onset (ago): hour(s) Associated Abdominal Pain: Yes Location of pain: epigastric Severity: moderate Associated symptoms: denies other symptoms Review of Systems - Constitutional Denies chills - Eyes Denies change in vision - ENT Denies dizziness - *Cardiovascular Denies chest pain - *Respiratory Denies cough - *Gastrointestinal Reports abdominal pain, Denies vomiting blood, Denies bright, red blood in stools, Denies black, tarry stools - *Genitourinary Denies difficulty urinating - *Neurologic Denies localized weakness, Denies headache(s), Denies seizure-like activity [facility] History Medical History: Reports:: Anxiety, Congestive Heart Failure, Depression, Hypertension, Renal Disease Denies:: Cancer, Diabetes Mellitus Type 1, Diabetes Mellitus Type 2, MRSA *Have you ever received a pneumonia vaccine?: No *Have you received a flu vaccine this season?: No Other Medical History: Reports: Anemia, Arthritis, Cataracts, Sinus Problems Laterality Cases: Bilateral: Cataract Other Surgeries: Yes: , Tubal Ligation, Other Amputation: No Fractures: No - *Social History Educational Level: Completed High School Smoking Status: Never smoker Alcohol Intake: never Alcohol Intake Frequency:: other Substance Use Type: denies use *Occupational Status:: retired Housing: house Household Members: friend(s) *Travel in the last 8 weeks: None - Psychiatric History Pschychiatric History:: Reports:: Anxiety, Depression Family Hx:: Hyperlipidemia, Stroke Meds Home Medications Medication Instructions Recorded Confirmed Type citalopram 20 mg tablet 20 mg PO DAILY 05/29/19 11/05/19 History Cholecalciferol (Vitamin D3) 1,000 unit PO BID 06/11/19 11/05/19 History [Vitamin D3 1,000 Unit Cap] pilocarpine HCl 5 mg tablet 5 mg PO TID tab 06/12/19 11/05/19 History sodium bicarbonate 650 mg tablet 1,300 mg PO BID tab 09/04/19 11/05/19 History Furosemide [Furosemide 80mg Tab] 80 mg PO BID 11/05/19 11/05/19 History Losartan Potassium 100 mg PO DAILY 11/05/19 11/05/19 History metOLazone [Metolazone 5mg Tab] 5 mg PO DAILY 11/05/19 11/05/19 History Allergies Allergy/AdvReac Type Severity Reaction Status Date / Time carvedilol Allergy Severe rash, n/v, Verified 11/05/19 00:13 weakness, swelling Iodinated Contrast Media Allergy Severe Weakness Verified 11/05/19 00:13 Penicillins Allergy Verified 11/05/19 00:13 Exam Vital signs and Labs for Last 24 Hours: Temp Pulse Resp BP Pulse Ox 98.3 F 80 17 190/86 H 96 11/05/19 08:00 11/05/19 08:00 11/05/19 08:00 11/05/19 08:00 11/05/19 08:00 Laboratory Results - last 24 hr 11/04/19 21:44: WBC 5.
[2019-11-05 14:10] LABS: Basophils % 0.3 % (0.1-2.0); Eosinophils # 0.1 K/mm3 (0.0-0.4); Hematocrit 24.5 % (37.0-47.0); Lymphocytes # 0.5 K/mm3 (0.7-4.5); Lymphocytes % 7.2 % (10-50); Mean Corpuscular HGB Conc 30.3 g/dL (31.8-35.4); Mean Corpuscular Hemoglobin 29.6 pg (27.0-31.2); Mean Corpuscular Volume 97.7 fl (81-99); Mean Platelet Volume 8.1 fl (7.4-10.4); Monocytes # 0.3 K/mm3 (0.1-1.0); Monocytes % 4.1 % (1.7-9.3); Neutrophils # 6.3 K/mm3 (1.8-7.8); Neutrophils % 87.4 % (37.0-80.0); Platelet Count 318 K/mm3 (142-424); Red Cell Distribution Width 16.2 % (11.5-17.5); White Blood Count 7.2 K/mm3 (4.8-10.8)
[2019-11-05 14:11] LABS: Hemoglobin 7.4 g/dL (12.2-16.2)
[2019-11-05 14:12] LABS: MANUAL DIFFERENTIAL MANUAL DIFFERENTIAL (MANUAL DIFF)
--- NOTE | 2019-11-05 14:13 | PC.NURSE ---
called dr joe and relayed that hgb remained at 7.4. stated at this time he did NOT wish to transfuse patient. they would recheck in morning
[2019-11-05 15:19] LABS: Acanthocytes 1+; Eosinophils % 3 % (0-3); Lymphocytes % 8 % (10-50); Monocytes % 2 % (2-9); Neutrophils % 87 % (42-76); Platelet Estimate Normal; Poikilocytosis 1+; Schistocytes 1+; Total Cells Counted 100
[2019-11-05 17:14] LABS: Chloride 99 mmol/L (98-107)
[2019-11-05 17:15] LABS: Potassium 3.8 mmoL/L (3.5-5.1); Sodium 131 mmol/L (136-145)
[2019-11-05 17:18] LABS: Anion Gap 10.8 mEq/L (5-15); Blood Urea Nitrogen 28 mg/dl (7-17); Calcium 8.5 mg/dl (8.4-10.2); Carbon Dioxide 25 mmol/L (22.0-30.0); Creatinine Clearance Estimated 50 mL/min (50-200); Estimated Glomerular Filt Rate 41 ml/min (>60); GFR (African American) 49 ML/MIN (>60); Glucose 91 mg/dl (74-100)
--- NOTE | 2019-11-05 17:36 | PC.NURSE ---
patient has slept most of shift. complaints of pain earlier in shift but is no longer having complaints. remains npo. costa draining dark yellow urine mostly clear. vitals have been stable will continue to monitor.
--- NOTE | 2019-11-05 20:48 | PC.NURSE ---
SPOKE WITH [place] FROM PHARMACY. HE GAVE OKAY TO ADMINISTER PT'S HOME MEDICATION PILOCARPINE 5 MG PO THIS EVENING PER PT REQUEST. MED FROM HOME IN [place]. NEEDS TO BE VERIFIED WITH PHARM IN AM.
--- NOTE | 2019-11-05 23:30 | PC.NURSE ---
ATTEMPTED TO PAGE FURNACE KEEPER MD TO MAKE AWARE OF CHANGE IN PT'S URINE STATUS. URINE NOTED DARKER PINK/DARK YELLOW IN COLOR WITH SEDIMENT CONSISTENCY. THIS DIFFERED FROM PREVIOUS SHIFT NOTED DARK YELLOW AND CLEAR. PT ATB ON SEP. PRELIM BC POSITIVE FOR GRAM POSITIVE RODS.
[2019-11-06] VITALS: BP 142/62; PULSE 89; PULSE 90; RESP 18; TEMP 37.1; O2SAT 90
[2019-11-06 04:00] VITALS: BP 160/62; PULSE 80; PULSE 88; RESP 16; TEMP 37.1; O2SAT 91
--- NOTE | 2019-11-06 05:32 | PC.NURSE ---
A&O X4. PT RESTED WELL THIS SHIFT WITH EYES CLOSED. NO ACUTE CHANGES NOTED T/O THIS SHIFT. TOLERATED RA WELL, 02 SATS NOTED 91-93%. NO RESPIRATORY DISTRESS NOTED. NO C/O SOA. NSR NOTED ON THE AUTOMATION DESIGN ENGINEER. NO C/O PAIN NOTED THIS SHIFT. URINE NOTED PINK IN COLOR T/O SHIFT WITH SEDIMENT. THIS IS A CHANGE FROM PREVIOUS SHIFT.REMAINS NPO. VSS. REMAINS SAFE. CALL LIGHT WITHIN REACH. WILL CONTINUE TO MONITOR.
[2019-11-06 05:38] VITALS: BMI 29.7
[2019-11-06 06:08] LABS: Chloride 103 mmol/L (98-107); Potassium 3.6 mmoL/L (3.5-5.1); Sodium 131 mmol/L (136-145)
[2019-11-06 06:11] LABS: Anion Gap 6.6 mEq/L (5-15); Blood Urea Nitrogen 27 mg/dl (7-17); Calcium 8.5 mg/dl (8.4-10.2); Carbon Dioxide 25 mmol/L (22.0-30.0); Creatinine Clearance Estimated 53 mL/min (50-200); Estimated Glomerular Filt Rate 41 ml/min (>60); GFR (African American) 49 ML/MIN (>60); Glucose 80 mg/dl (74-100); Magnesium 1.7 mg/dl (1.6-2.3)
[2019-11-06 06:12] LABS: Basophils % 0.3 % (0.1-2.0); Eosinophils # 0.1 K/mm3 (0.0-0.4); Eosinophils % 1.8 % (0.1-12.0); Lymphocytes # 0.5 K/mm3 (0.7-4.5); Lymphocytes % 6.2 % (10-50); Mean Corpuscular HGB Conc 31.8 g/dL (31.8-35.4); Mean Corpuscular Hemoglobin 29.9 pg (27.0-31.2); Mean Corpuscular Volume 94.2 fl (81-99); Mean Platelet Volume 7.6 fl (7.4-10.4); Monocytes # 0.3 K/mm3 (0.1-1.0); Monocytes % 3.8 % (1.7-9.3); Neutrophils # 6.7 K/mm3 (1.8-7.8); Neutrophils % 87.8 % (37.0-80.0); Platelet Count 350 K/mm3 (142-424); Red Blood Count 2.55 M/mm3 (4.20-5.40); Red Cell Distribution Width 15.9 % (11.5-17.5); White Blood Count 7.6 K/mm3 (4.8-10.8)
[2019-11-06 06:15] LABS: Hemoglobin 7.6 g/dL (12.2-16.2)
[2019-11-06 06:17] LABS: MANUAL DIFFERENTIAL MANUAL DIFFERENTIAL (MANUAL DIFF)
[2019-11-06 08:00] VITALS: BP 164/72; PULSE 100; PULSE 91; RESP 16; TEMP 36.6; O2SAT 92
[2019-11-06 08:52] LABS: Eosinophils % 2 % (0-3); Lymphocytes % 5 % (10-50); Monocytes % 2 % (2-9); Neutrophils % 91 % (42-76); Total Cells Counted 100
--- NOTE | 2019-11-06 08:52 | HMH.ACPN2 ---
Internal Medicine - PN: Subj *Date: 11/06/19 *Time: 08:52 Interval history: Ms. Amaya did well overnight. Blood pressure control improved with addition of calcium channel akash. Discussion this morning about findings on imaging of concern for pancreatic head mass. Patient became tearful during discussion and deferred to daughters on decision of further management/work-up/treatment. Continuing to have some abdominal pain today. Denies nausea or vomiting. Denies any confusion, headache. Does complain of dry mouth. Stable on room air Exam Vital signs and Labs for Last 24 Hours: Temp Pulse Resp BP Pulse Ox 97.9 F 91 H 16 164/72 H 92 L 11/06/19 08:00 11/06/19 08:00 11/06/19 08:00 11/06/19 08:00 11/06/19 08:00 Laboratory Results - last 24 hr 11/05/19 14:00: Blood Type A Positive, Antibody Screen Negative, Crossmatch (AHG) See Detail 11/05/19 14:00: WBC 7.2, RBC 2.50 L, Hgb 7.4 L*, Hct 24.5 L, MCV 97.7, MCH 29.6, MCHC 30.3 L, RDW 16.2, Plt Count 318, MPV 8.1, Neut % (Auto) 87.4 H, Lymph % (Auto) 7.2 L, [place] % (Auto) 4.1, Eos % (Auto) 1.0, Baso % (Auto) 0.3, Neut # (Auto) 6.3, Lymph # (Auto) 0.5 L, [place] # (Auto) 0.3, Eos # (Auto) 0.1, Baso # (Auto) 0.0, Total Counted 100, Neutrophils % (Manual) 87 H, Lymphocytes % (Manual) 8 L, Monocytes % (Manual) 2, Eosinophils % (Manual) 3, Platelet Estimate Normal, Poikilocytosis 1+, Acanthocytes (Spur) 1+, Schistocytes 1+ 11/05/19 14:00: Sodium 131 L, Potassium 3.8, Chloride 99, Carbon Dioxide 25, Anion Gap 10.8, BUN 28 H, Creatinine 1.30 H, Estimated Creat Clear 50, Estimated GFR 41 L, Est GFR ( Amer) 49 L, Glucose 91 D, Calcium 8.5 11/06/19 05:50: WBC 7.6, RBC 2.55 L, Hgb 7.6 L*, Hct 24.0 L, MCV 94.2, MCH 29.9, MCHC 31.8, RDW 15.9, Plt Count 350, MPV 7.6, Neut % (Auto) 87.8 H, Lymph % (Auto) 6.2 L, [place] % (Auto) 3.8, Eos % (Auto) 1.8, Baso % (Auto) 0.3, Neut # (Auto) 6.7, Lymph # (Auto) 0.5 L, [place] # (Auto) 0.3, Eos # (Auto) 0.1, Baso # (Auto) 0.0 11/06/19 05:50: Sodium 131 L, Potassium 3.6, Chloride 103, Carbon Dioxide 25, Anion Gap 6.6, BUN 27 H, Creatinine 1.30 H, Estimated Creat Clear 53, Estimated GFR 41 L, Est GFR ( Amer) 49 L, Glucose 80, Calcium 8.5, Magnesium 1.7 I & O for Last 24 hours: Intake & Output 11/03/19 11/04/19 11/05/19 11/06/19 23:59 23:59 23:59 23:59 Intake Total 1680 / 3183 1503 / 1503 Output Total 1500 / 2250 750 / 750 Balance 180 / 933 753 / 753 Weight 81.647 kg 76.345 kg 81.102 kg Microbiology Reports for the Last 24 Hours: Microbiology 11/04/19 21:44 Blood Blood Culture - Preliminary 11/04/19 22:09 Urine,Catheterized Urine Culture - Preliminary Narrative: - Constitutional mild distress, chronically ill appearing - *Routine HEENT Exam Head: Present: cushingoid faces, with bitemporal wasting Eye: Present: EOMI, PERRL ENT: Present: mucous membranes dry (1) - *Routine Neck Exam Present: supple. Absent: lymphadenopathy - *Routine Respiratory Exam Present: CTA bilaterally. Absent: wheezes, crackles - *Routine Cardiovascular Exam Present: RRR - *Routine Abdominal Exam Present: soft, normoactive bowel sounds, tenderness (Tender to shallow palpation left upper quadrant, no guarding or rebound) - *Routine Extremities Exam Present: edema (1+ in lower extremities). Absent: cyanosis, clubbing - *Routine Skin Exam Present: pallor, warm. Absent: rash Comments: Multiple ecchymoses on upper extremities - *Routine Neurological Exam Present: alert, oriented X3 Assessment and Plan (1) Cholelithiasis Current visit: Yes Status: Acute Qualifiers: Cholelithiasis location: gallbladder Cholecystitis presence: without cholecystitis Biliary obstruction: without biliary obstruction Qualified Code(s): K80.20 - Calculus of gallbladder without cholecystitis without obstruction Category: Medical Code(s): K80.20 - Calculus of gallbladder without cholecystitis without obstruction (2) [place]
[2019-11-06 08:54] LABS: Platelet Estimate Normal; RBC Morphology Normal
[2019-11-06 09:02] LABS: Lipase 125 U/L (23-300)
--- NOTE | 2019-11-06 11:42 | HMH.DCSUM ---
General - General Admission date:: 11/05/19 Discharge date: 11/06/19 HPI HPI: Ms. Amaya is a 69-year-old female with long-standing dizziness, fatigue, anemia, chronic kidney disease, Sjogren's disease. She presented to the ER yesterday due to worsening abdominal pain and nausea after eating. States pain is quite significant in left upper abdomen. Her family came to check on her because of this complaint and found that not only was she in pain but her blood pressure was exceptionally elevated. They brought her to the ER for further assessment. On assessment in the ER, found to be hypertensive, labs concerning for pancreatitis with elevated lipase, chronic anemia that is fairly stable for her. She was admitted to medicine for further management of pancreatitis. CT of her abdomen showed concern for calcium stones in her gallbladder. Surgery was consulted, appreciate recommendations, they are seeing patient this morning. On assessment this morning she states her pain is a little bit better however noted to have significant hypertension overnight. Denies any vomiting this morning but does still feel nauseous. Hemoglobin noted to drop a point to 7.4. Kidney function at baseline today. Hospital Course Hospital Course: 69-year-old female admitted for pancreatitis. Imaging concerning for new diagnosis of pancreatic head mass. CT performed with subsequent ultrasound showing heterogenous 5 x 3 cm mass at the head of the pancreas. Problems addressed as follows GI -Pancreatitis on admission with a lipase greater than 800. Made n.p.o. and initiated lactated Ringer's for fluid resuscitation. Patient is continued to have mild though somewhat improved abdominal pain. Currently on sips and chips but no advancement of diet due to persistent abdominal pain and pending potential work-up for new diagnosis of mass at head of pancreas. Initial concern was for gallstone pancreatitis, surgery was consulted, given complexity and comorbidities of patient, along with finding of new pancreatic head mass, surgery deferred management and further treatment to tertiary care center. Image findings as follows: Gallbladder ultrasound: Pancreas with heterogenous mass in the head of the pancreas measuring 5 cm x 4 cm x 3 cm. Liver is unremarkable, portal vein somewhat prominent at 16 mm. Gallbladder with gallbladder wall thickening and contracted. Shadowing from gallbladder suggesting stones common bile duct 4 mm. Gallbladder wall measures 1 cm in thickness. No pericholecystic fluid. Rheumatology -Known history of Sjogren's, not currently on any immune modulating therapy due to history of infections, unclear exactly what these are. Has been seeing Dr. Usama Arcos for nephrology, concern for lupus per his documentation given persistently elevated DIONI, worsening kidney disease, nephrotic range proteinuria. This complicates patient's work-up and treatment. Nephrology -CKD 3 with nephrotic range proteinuria. 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 Is followed by Dr. Usama Arcos. High risk for adverse contrast issues. Kidney function is remained stable at baseline during admission creatinine 1.3 Hematology -Chronic anemia, 8.4 on admission, 7.4 today. No transfusions at this time. No active signs of bleeding. Patient's anemia has been worked up in the past with no clear etiology. No bone marrow biopsy performed. Suspect to be related to her underlying autoimmune disorder. Psych -Patient struggles with depression and anxiety. Defers medical decisions to her daughters. Her underlying psychiatric issues have complicated her care in the past as she has been seen by several rheumatologists and has had mixed compliance with medical treatment. On interview today, patient continues to have abdominal pain. Still n.p.o. but tolerating sips and chips for comfort. Had extensive discussion with patient and her daughter via phone in regard to patient's condit
[2019-11-06 12:00] VITALS: BP 143/63; PULSE 73; PULSE 90; RESP 18; TEMP 36.7; O2SAT 91
[2019-11-06 16:00] VITALS: PULSE 80
--- NOTE | 2019-11-06 17:19 | PC.NURSE ---
REPORT CALLED TO YADIRA BOONE AT . PT TRANSFERRED VIA AMBULANCE. VSS. NO DISTRESS NOTED. HOME MED SENT WITH PT AND ALL BELONGINGS.
== END 2019-11-06 17:20 | disposition short-term general hospital (02) | DRG 439 ==
LOC: ER 21:40 → 2ND 23:29
PROVIDERS: Internal Medicine Adolescent Medicine; Admitting Provider Emergency Medicine; Emergency Provider Emergency Medicine; PCP Internal Medicine Adolescent Medicine; Visit Provider Internal Medicine Adolescent Medicine
DX: K85.10 Biliary acute pancreatitis without necrosis or infection (principal); I13.0 Hypertensive heart and chronic kidney disease with heart failure and stage 1 through stage 4 chronic kidney disease, or unspecified chronic kidney disease; I50.30 Unspecified diastolic (congestive) heart failure; E87.1 Hypo-osmolality and hyponatremia; N04.9 Nephrotic syndrome with unspecified morphologic changes; D49.0 Neoplasm of unspecified behavior of digestive system; N18.3 Chronic kidney disease, stage 3 (moderate); M35.00 Sjogren syndrome, unspecified; M32.14 Glomerular disease in systemic lupus erythematosus; N25.89 Other disorders resulting from impaired renal tubular function; D64.9 Anemia, unspecified; Z88.8 Allergy status to other drugs, medicaments and biological substances; Z88.0 Allergy status to penicillin; Z79.899 Other long term (current) drug therapy
CPT/HCPCS: 36415; 71045; 74176; 76705; 80048; 80076; 81001; 82150; 83605; 83690; 83735; 84484; 85007; 85025; 86850; 87040; 87077; 87086; 87088; 87186; 93005; 96365; 96375; 99285; J2405

== ENCOUNTER → 2020-03-23 10:55 | Outpatient (POV) | payer MEDICARE, MEDICAID, SELFPAY | PROVIDERS: Visit Provider Internal Medicine Nephrology | DX: Z00.00 Encounter for general adult medical examination without abnormal findings (principal) ==

== ENCOUNTER 2020-05-26 11:13 | Inpatient (IN) | payer MEDICARE, MEDICAID, SELFPAY ==
[2020-05-26] VITALS (27 sets, daily range): BP systolic 116–162; BP diastolic 42–98; PULSE 74–96; RESP 12–32; TEMP 36.4–36.7; O2SAT 94–100; BMI 34.3; BMI 28.0
--- NOTE | 2020-05-26 11:18 | XR_ITS ---
PROCEDURE: XR HIP LT 2-3V W/PELVIS CLINICAL INDICATION: pain Severe left hip pain COMPARISON: No exams were available for comparison FINDINGS: Subcapital/basicervical region. There is foreshortening of the fracture fragments by approximately 1.7 cm with mild lateral displacement of the distal fracture fragment. There are mild osteoarthritic changes of the right hip. IMPRESSION: Left femoral neck fracture at the subcapital/transcervical region with foreshortening of the fracture fragments Dictated by: Xavier Lovell MD 05/26/2020 14:45 Xavier Lovell MD in [place] 05/26/2020 14:45
--- NOTE | 2020-05-26 11:25 | HMH.EDGENADL ---
ED Disposition Clinical Impression: Femoral neck fracture Qualifiers: Encounter type: initial encounter Fracture type: closed Laterality: left Qualified Code(s): S72.002A - Fracture of unspecified part of neck of left femur, initial encounter for closed fracture Disposition: Admitted As Inpatient Condition on Discharge: Good - Critical Care Critical Care Time: No Attestation: On 05/26/20, the high probability of a clinically significant, sudden or life threatening deterioration of the following system(s) required my full and direct attention, intervention and personal management. The time I documented below is in addition to time spent performing reported procedures but includes the following listed in this critical care notation. Medical Decision Making - Medical Records Medical records reviewed: Yes: I reviewed the patient's medical records. - Khari Inquiry Pt receiving controlled substance: Yes Khari was queried for this patient: No Reason not queried -: Emergent pt cond-no time Risks and benefits of using a controlled substance: were discussed with pt by me Vital Signs: 05/26/20 11:13 05/26/20 11:56 Temperature 97.7 F Temperature Source Oral Pulse Rate [Left Radial] 93 H 84 Respiratory Rate 19 18 Blood Pressure [Right Arm] 153/79 H 125/98 H Blood Pressure Mean [Right Arm] 103 107 Blood Pressure Source [Right Arm] Automatic Cuff Automatic Cuff Blood Pressure Position [Right Arm] Sitting Sitting 02 Sat by Pulse Oximetry 99 100 Oxygen Delivery Method Room Air Room Air Orders (Tests/Meds): ED MEDICATIONS Generic Name Dose Route Start Last Admin Trade Name Freq PRN Reason Stop Dose Admin Acetaminophen 650 mg 05/26/20 12:23 Acetaminophen 325mg Tab PO 06/25/20 12:22 Q4HP PRN As Needed for Fever or Pain Docusate Sodium 100 mg 05/27/20 09:00 Docusate Sodium 100 Mg Capsule PO 06/26/20 08:59 DAILY THEA Sodium Chloride 500 mls @ 999 mls/hr 05/26/20 12:00 05/26/20 12:01 Sod Chlor 0.9% 1000ml Bag IV 05/26/20 12:30 999 mls/hr .Q31M THEA Administration Sodium Chloride 1,000 mls @ 50 mls/hr 05/26/20 12:30 Sod Chlor 0.9% 1000ml Bag IV 06/25/20 12:29 .Q20H THEA Morphine Sulfate 4 mg 05/26/20 12:23 Morphine 2mg/Ml Syringe IV 06/25/20 12:22 Q4HP PRN Severe Pain Ondansetron HCl 4 mg 05/26/20 12:23 Ondansetron 4mg/2ml Vial IV 06/25/20 12:22 Q8HP PRN Nausea Pantoprazole Sodium 40 mg 05/27/20 09:00 Pantoprazole 40mg Tablet PO 06/26/20 08:59 DAILY THEA Discontinued Medications Generic Name Dose Route Start Last Admin Trade Name Mya PRN Reason Stop Dose Admin Cyclobenzaprine HCl 5 mg 05/26/20 11:34 05/26/20 12:00 Cyclobenzaprine 10mg Tablet PO 05/26/20 11:35 5 mg ONCE ONE Administration Morphine Sulfate 4 mg 05/26/20 12:00 05/26/20 12:01 Morphine 4mg/Ml Syringe IV 05/26/20 12:01 4 mg ONCE ONE Administration ORDERS Category Date Time Status Type and Screen Stat BBK 05/26/20 12:05 Received Consult to Orthopedic Surgery [CONS] Stat Cons 05/26/20 12:26 Ordered Hip XR left minimum 2 views [XR hip LT 2-3V w/pelvis] Exams 05/26/20 11:18 Taken Stat XR chest AP Stat Exams 05/26/20 11:48 Taken Basic Metabolic Panel Stat Lab 05/26/20 11:48 Ordered Complete Blood Count Auto Diff Stat Lab 05/26/20 11:48 Ordered PT/PTT Stat Lab 05/26/20 11:48 Ordered Urinalysis and Microscopic Stat Lab 05/26/20 11:49 Ordered - Radiology Data #1 Image(s): Hip Image Reviewed: Yes I reviewed the patient's radiology image Left femoral neck fracture Medical Decision Narrative: Patient with left femoral neck fracture. Awaiting callback from Dr. Shea, discussed his case with Dr. Jose Ordaz and patient will be admitted for further management. She is neurovascularly intact distally and hemodynamically stable. General Adult HPI - General Chief complaint: PAIN Stated complaint: pain Time
--- NOTE | 2020-05-26 11:48 | XR_ITS ---
PROCEDURE: XR CHEST AP CLINICAL HISTORY: fall, hip fracture Shortness of breath COMPARISON: CR CXR2V XR chest 2V from 12/20/[address] angio chest from 01/17/2019 CR Chest from 01/17/2019 CR XR CHEST AP from 11/04/2019 FINDINGS: The cardiomediastinal silhouette and pulmonary vascularity are within normal limits. Right hemidiaphragm is elevated with small right pleural effusion. In the left hilar region there is a rounded opacity measuring 14 mm. Possibly related to summation density from overlapping vessel. There is some minimal blunting of the left CP angle. Degenerative changes thoracic spine IMPRESSION: Small right pleural effusion with minimal blunting of the left CP angle 14 mm opacity left perihilar region. Consider upright PA and lateral chest for further evaluation. Cannot exclude a nodule versus overlying vascular structure Dictated by: Xavier Lovell MD 05/26/2020 14:38 Xavier Lovell MD in [place] 05/26/2020 14:38
--- NOTE | 2020-05-26 12:00 | PC.NURSE ---
paged dr anderson
[2020-05-26 12:36] LABS: Basophils % 0.1 % (0.1-2.0); Eosinophils % 0.5 % (0.1-12.0); Lymphocytes # 1.6 K/mm3 (0.7-4.5); Lymphocytes % 21.4 % (10-50); Mean Corpuscular HGB Conc 30.2 g/dL (31.8-35.4); Mean Corpuscular Volume 99.1 fl (81-99); Mean Platelet Volume 7.6 fl (7.4-10.4); Monocytes # 0.3 K/mm3 (0.1-1.0); Monocytes % 3.5 % (1.7-9.3); Neutrophils # 5.4 K/mm3 (1.8-7.8); Neutrophils % 74.6 % (37.0-80.0); Platelet Count 459 K/mm3 (142-424); Red Blood Count 2.13 M/mm3 (4.20-5.40); Red Cell Distribution Width 16.5 % (11.5-17.5); White Blood Count 7.3 K/mm3 (4.8-10.8)
[2020-05-26 12:38] LABS: Hematocrit 21.1 % (37.0-47.0); Hemoglobin 6.4 g/dL (12.2-16.2)
[2020-05-26 12:42] LABS: Chloride 111 mmol/L (98-107); Sodium 131 mmol/L (136-145)
[2020-05-26 12:44] LABS: Activated Partial Thrombo Time 27.8 seconds (23.6-34.0); INR 1.21 (0.9-1.1); Prothrombin Time 13.2 seconds (9.4-11.8)
[2020-05-26 12:45] LABS: Blood Urea Nitrogen 52 mg/dl (7-17); Creatinine Clearance Estimated 38 mL/min (50-200); Estimated Glomerular Filt Rate 25 ml/min (>60); GFR (African American) 30 ML/MIN (>60)
[2020-05-26 12:46] LABS: Calcium 7.6 mg/dl (8.4-10.2); Carbon Dioxide 16 mmol/L (22.0-30.0); Glucose 63 mg/dl (74-100)
[2020-05-26 12:55] LABS: Appearance,Urine CLOUDY (Clear); Bilirubin,Urine Negative (Negative); Blood, Urine 2+ (Negative); Color,Urine YELLOW (Yellow); Glucose,Urine (UA) Negative (Negative); Ketones,Urine Negative (Negative); Leukocyte Esterase,Urine 2+ (Negative); Microscopic, Urine URINE MICROSCOPIC (MICROSCOPIC); Nitrate,Urine POSITIVE (Negative); Protein,Urine 1+ (Negative); Urobilinogen,Urine 0.2 EU/dl (0.2)
[2020-05-26 13:05] LABS: Amorphous Sediment,Urine 1+ /lpf; Bacteria,Urine 2+ /lpf; RBC,Urine Occasional #/hpf (0-3); Squamous Epithelial Cell,Urine Occasional #/hpf (0-5); WBC,Urine 50-100 #/hpf (0-3)
[2020-05-26 13:08] LABS: Coronavirus 19 IgG Antibody Negative (Negative); Coronavirus 19 IgM Antibody Negative (Negative)
--- NOTE | 2020-05-26 13:22 | PC.NURSE ---
Dr Davis speaking with Dr Shea
--- NOTE | 2020-05-26 13:25 | PC.NURSE ---
Notified 2nd floor that pt is ready to be transferred to floor, nurse stated she would be down soon.
--- NOTE | 2020-05-26 13:37 | HMH.PHAVTE ---
[facility] Pharmacy VTE Monitoring - Patient Demographics Admission date: 05/26/20 Report Date: 05/26/20 Time: 13:38 Allergies/Adverse Reactions: Patient Allergies carvedilol Allergy (Severe, Verified 11/05/19 00:13) rash, n/v, weakness, swelling Iodinated Contrast Media Allergy (Severe, Verified 11/05/19 00:13) Weakness Penicillins Allergy (Verified 11/05/19 00:13) Height: 1.63 m Weight: 90.718 kg Patient Problems: Current Active Problems Femoral neck fracture (Acute) - VTE Risk Labs: VTE Related Lab Results Hgb 6.4 g/dL (12.2-16.2) L* 05/26/20 11:10 Hct 21.1 % (37.0-47.0) L* 05/26/20 11:10 Plt Count 459 K/mm3 (142-424) H 05/26/20 11:10 PT 13.2 seconds (9.4-11.8) H 05/26/20 11:10 INR 1.21 (0.9-1.1) H 05/26/20 11:10 APTT 27.8 seconds (23.6-34.0) 05/26/20 11:10 BUN 52 mg/dl (7-17) H 05/26/20 11:10 Creatinine 2.00 mg/dl (0.52-1.04) H 05/26/20 11:10 Estimated Creat Clear 38 mL/min (50-200) 05/26/20 11:10 - Prophylaxis VTE Prophylaxis Ordered?: Yes Types of VTE Prophylaxis: TEDS Knee High Location of Applied Device: Bilateral Lower Extremeties
--- NOTE | 2020-05-26 13:48 | PC.NURSE ---
LAB CALLED WHILE I WAS RECEIVING REPORT IN THE ER TO NOTIFY ME AND LET ME KNOW BLOOD WAS READY TO BE PICKED UP. OBTAINED BLOOD SOON PT WAS TRANSFERRED TO 2ND FLOOR AND RESTING IN HER BED. LET LAB KNOW I WAS IN THE ER AND WOULD BE THERE SOON I COULD.
--- NOTE | 2020-05-26 15:07 | HMH.PHAINT ---
HOME MEDICATIONS RECONCILED FROM CLINIC PHARMACY FILL LIST, MD OFFICE LIST, AND PATIENT (DAUGHTER) INTERVIEW.
--- NOTE | 2020-05-26 15:29 | HMH.ORTHOCON ---
*Admission Date: 05/26/20 *Reason for consult:: Fracture neck femur, left hip *History of present illness: Patient is a 70-year-old female admitted from the ER today for management of her left hip fracture. Patient's daughter is in the room at the bedside. Her past medical history is significant for congestive heart failure, autoimmune liver cirrhosis, chronic kidney disease. Patient says she fell down at home about 5 days ago and has been having left hip pain. She says she thought she sprained the hip and has been mobilizing with difficulty using her walker until yesterday night. However, this morning her hip pain increased and she could not get up and walk. She reports left hip pain and states any movement makes the pain worse; nothing makes it better. No history of any distal tingling or numbness. No history of any other injuries. No history of any dizziness, headache, chest or neck pain. Patient has multiple medical problems and daughter says she was very anemic at recent checkup with career development coordinator/teacher earlier this week. Patient does not take any blood thinners. She lives with her friend and ambulates minimally only indoors at baseline using a walker. [facility] History I have reviewed the patient's past medical history: Yes Medical History: Reports:: Anxiety, Congestive Heart Failure, Depression, Hypertension, Renal Disease Denies:: Cancer, Diabetes Mellitus Type 1, Diabetes Mellitus Type 2, MRSA *Have you ever received a pneumonia vaccine?: No *Have you received a flu vaccine this season?: No Other Medical History: Reports: Anemia, Arthritis, Cataracts, Sinus Problems Other Surgeries: Yes: , Tubal Ligation, Other Amputation: No Fractures: No - *Social History Smoking Status: Never smoker Alcohol Intake: never Alcohol Intake Frequency:: other Substance Use Type: denies use *Occupational Status:: retired Housing: house Household Members: friend(s) *Travel in the last 8 weeks: None - Psychiatric History Pschychiatric History:: Reports:: Anxiety, Depression Family Hx:: Hyperlipidemia, Stroke Review of Systems - Review of Systems Review of systems:: pertinent systems reviewed and negative unless documented below - Constitutional Denies chills, Denies fever(s) - Eyes Denies change in vision - ENT Denies abnormal hearing - *Cardiovascular Denies chest pain, Denies shortness of breath - *Respiratory Denies cough - *Gastrointestinal Denies abdominal pain - *Musculoskeletal Reports abnormal walking, Reports limited joint movement - *Neurologic Denies seizure-like activity, Denies numbness, Denies tingling Meds Home Medications Medication Instructions Recorded Confirmed Type citalopram 20 mg tablet 20 mg PO DAILY 05/29/19 05/26/20 History Cholecalciferol (Vitamin D3) 1,000 unit PO BID 06/11/19 05/26/20 History [Vitamin D3 1,000 Unit Cap] pilocarpine HCl 5 mg tablet 5 mg PO TID tab 06/12/19 05/26/20 History sodium bicarbonate 650 mg tablet 1,300 mg PO TID tab 09/04/19 05/26/20 History Furosemide [Furosemide 80mg Tab] 80 mg PO DAILY 05/26/20 05/26/20 History Losartan Potassium [Cozaar 25mg 25 mg PO DAILY 05/26/20 05/26/20 History Tablets] NIFEdipine [Nifedipine ER] 30 mg PO DAILY 05/26/20 05/26/20 History Nystatin [Nystop] 0 gm TP BID 05/26/20 05/26/20 History Omeprazole [Omeprazole 40mg 40 mg PO NEEDED PRN 05/26/20 05/26/20 History Capsule] Potassium Chloride 20 meq PO DAILY 05/26/20 05/26/20 History Tramadol HCl [Tramadol 50mg 50 mg PO Q8HP PRN 05/26/20 05/26/20 History Tab] metOLazone [Metolazone 5mg Tab] 5 mg PO NEEDED PRN 05/26/20 05/26/20 History mycophenolate mofetiL 250 mg PO BID 05/26/20 05/26/20 History [Mycophenolate Mofetil] predniSONE [Deltasone 10mg 0 mg PO DAILY 05/26/20 05/26/20 History tablet] Allergies Allergy/AdvReac Type Severity Reaction Status Date / Time carvedilol Allergy Severe rash, n/v, Verified 11/05/19 00:13 weakness,
--- NOTE | 2020-05-26 17:01 | PC.NURSE ---
ATTEMPTED TO NOTIFY BETOSON ABOUT PT BEING IN PAIN. AWAITING PHONE CALL.
--- NOTE | 2020-05-26 17:33 | PC.NURSE ---
ATTEMPTING TO NOTIFY DR NYE ABOUT PT BEING IN PAIN. AWAITING PHONE CALL.
--- NOTE | 2020-05-26 17:40 | PC.NURSE ---
EXPLAINED TO DR HODGSON PT HAD 4MG MORPHINE AT 3 AND HAD TYLENOL WELL. SHE IS STILL IN A LOT OF PAIN. HE ORDERED 1MG DILAUDID IV Q 2 HOURS PRN FOR PAIN AND ASKED TO DC MORPHINE 4MG Q 4 HOURS PRN FOR PAIN. ORDER FAXED TO PHARMACY AND MED ADMINISTERED. PT TOLERATED WELL. ON REASSESSMENT, SHE WAS RESTING W EYES CLOSED.
--- NOTE | 2020-05-26 17:51 | HMH.HP ---
*Admission Date: 05/26/20 *Chief complaint: Fall at home with left hip fracture *History of present illness: This is a 70-year-old female with a past medical history significant for congestive heart failure, autoimmune liver cirrhosis, chronic kidney disease who presents to the emergency department for evaluation of left hip pain after a fall 1 week ago. She ambulates minimally at baseline using a walker, but pain was significantly increased this morning when she woke up. She tried taking a tramadol yesterday and this morning, but pain persists. She denies any motor or sensory changes distally. Patient states that any sort of movement makes the pain worse, nothing makes it better. Daughter notes that patient was very anemic at her most recent checkup with her specialist earlier this week and was borderline in need of transfusion. Patient does not take any blood thinners. She lives with a friend and only mobilizes indoors with a walker. [facility] History I have reviewed the patient's past medical history: Yes Medical History: Reports:: Anxiety, Congestive Heart Failure, Depression, Hypertension, Renal Disease Denies:: Cancer, Diabetes Mellitus Type 1, Diabetes Mellitus Type 2, MRSA *Have you ever received a pneumonia vaccine?: No *Have you received a flu vaccine this season?: No Other Medical History: Reports: Anemia, Arthritis, Cataracts, Sinus Problems Other Surgeries: Yes: , Tubal Ligation, Other Amputation: No Fractures: No - *Social History Last grade of school completed: 11th or 12th Smoking Status: Never smoker Alcohol Intake: never Alcohol Intake Frequency:: other Substance Use Type: denies use *Occupational Status:: retired Housing: house Household Members: caregiver *Travel in the last 8 weeks: None - Psychiatric History Pschychiatric History:: Reports:: Anxiety, Depression Family Hx:: Hyperlipidemia, Stroke Review of Systems - Review of Systems Review of systems:: pertinent systems reviewed and negative unless documented below Significant left hip pain. Denies chest pain or shortness of air over her baseline. She has been more mobile than normal lately and has been able to traverse most of her house with a walker. Edema has been under much better control than baseline. Meds Home Medications Medication Instructions Recorded Confirmed Type citalopram 20 mg tablet 20 mg PO DAILY 05/29/19 05/26/20 History Cholecalciferol (Vitamin D3) 1,000 unit PO BID 06/11/19 05/26/20 History [Vitamin D3 1,000 Unit Cap] pilocarpine HCl 5 mg tablet 5 mg PO TID tab 06/12/19 05/26/20 History sodium bicarbonate 650 mg tablet 1,300 mg PO TID tab 09/04/19 05/26/20 History Furosemide [Furosemide 80mg Tab] 80 mg PO DAILY 05/26/20 05/26/20 History Losartan Potassium [Cozaar 25mg 25 mg PO DAILY 05/26/20 05/26/20 History Tablets] NIFEdipine [Nifedipine ER] 30 mg PO DAILY 05/26/20 05/26/20 History Nystatin [Nystop] 0 gm TP BID 05/26/20 05/26/20 History Omeprazole [Omeprazole 40mg 40 mg PO NEEDED PRN 05/26/20 05/26/20 History Capsule] Potassium Chloride 20 meq PO DAILY 05/26/20 05/26/20 History Tramadol HCl [Tramadol 50mg 50 mg PO Q8HP PRN 05/26/20 05/26/20 History Tab] metOLazone [Metolazone 5mg Tab] 5 mg PO NEEDED PRN 05/26/20 05/26/20 History mycophenolate mofetiL 250 mg PO BID 05/26/20 05/26/20 History [Mycophenolate Mofetil] predniSONE [Deltasone 10mg 0 mg PO DAILY 05/26/20 05/26/20 History tablet] Allergies Allergy/AdvReac Type Severity Reaction Status Date / Time carvedilol Allergy Severe rash, n/v, Verified 11/05/19 00:13 weakness, swelling Iodinated Contrast Media Allergy Severe Weakness Verified 11/05/19 00:13 Penicillins Allergy Verified 11/05/19 00:13 Exam Vital signs and Labs for Last 24 Hours: Temp Pulse Resp BP Pulse Ox 97.9 F 83 28 H 122/79 100 05/26/20 17:40 05/26/20 17:40 05/26/20 17:40 05/26/20 17:40 05/26/20 17:40 Labo
--- NOTE | 2020-05-26 19:00 | PC.NURSE ---
ATTEMPTED TO STICK PT FOR A SECOND IV TO GIVE CALCIUM GLUCONATE. WAS UNSUCCESSFUL. ONCOMING NURSE NOTIFIED. CALCIUM GLUCONATE WAS GIVEN LATE.
--- NOTE | 2020-05-26 19:00 | PC.NURSE ---
A&OX4. PT HAS TOLERATED ROOM AIR WELL THROUGHOUT SHIFT. LUNG SOUNDS BILATERALLY CLEAR. NO COUGH NOTED. HAND MULTIPLE SPINDLE SCREW MACHINE OPERATOR EQUAL. +2 PULSES NOTED THROUGHOUT. ACTIVE BOWEL SOUNDS HEARD IN ALL 4 QUADRANTS. SOFT AND NONTENDER ABDOMEN. NO BM THIS SHIFT. DIXON CATHETER IN PLACE WITH YELLOW URINE NOTED. NO KINKS NOTED. PT HAS REPORTED PAIN SEVERAL TIMES THIS SHIFT. SHE RECEIVED MORPHINE 4MG, ACETAMINOPHEN 650MG, AND DILAUDID 1MG. PT WAS ALSO REPOSITIONED SEVERAL TIMES. PT HAS BEEN TURNED Q2 HOURS TO PREVENT FURTHER SKIN BREAKDOWN. 2 SMALL SORES WELL SCABS NOTED BUTTOCK AREA. ALLEVYN IN PLACE. BRUISE NOTED TO L OUTER THIGH AND R INNER THIGH. SCAB NOTED TO L THIGH. PHOTO CONSENT OBTAINED AND PICTURES ON THE CHART. PT RECEIVED 2 UNITS OF BLOOD. BLOOD CONSENT ON THE CHART. PT TOLERATED WELL. SURGERY CONSENT SIGNED BY DAUGHTER AND ON THE CHART. PT IS CURRENTLY RESTING IN BED. CALL LIGHT WITHIN REACH. BED IN LOWEST POSITION. VSS. WILL CONTINUE TO MONITOR.
[2020-05-26 20:30] LABS: Chloride 112 mmol/L (98-107); Potassium 5.8 mmoL/L (3.5-5.1); Sodium 135 mmol/L (136-145)
[2020-05-26 20:33] LABS: Anion Gap 12.8 mEq/L (5-15); Blood Urea Nitrogen 54 mg/dl (7-17); Carbon Dioxide 16 mmol/L (22.0-30.0); Creatinine Clearance Estimated 33 mL/min (50-200); Estimated Glomerular Filt Rate 25 ml/min (>60); GFR (African American) 30 ML/MIN (>60)
[2020-05-26 20:34] LABS: Calcium 7.6 mg/dl (8.4-10.2); Glucose 78 mg/dl (74-100)
--- NOTE | 2020-05-26 21:26 | PC.NURSE ---
BRUISE NOTED TO L HIP
--- NOTE | 2020-05-26 21:27 | PC.NURSE ---
BRUISE NOTED TO R INNER THIGH
--- NOTE | 2020-05-26 21:28 | PC.NURSE ---
SCAB NOTED TO L THIGH
--- NOTE | 2020-05-26 21:28 | PC.NURSE ---
SCAB NOTED TO L THIGH
--- NOTE | 2020-05-26 21:29 | PC.NURSE ---
SEVERAL SCABS NOTED TO BUTTOCK AREA, ALLEVYN IN PLACE, PT TURNED Q2 HOURS
--- NOTE | 2020-05-26 21:30 | PC.NURSE ---
SMALL OPEN SORE NOTED TO COCCYX AREA, ALLEVYN IN PLACE, PT TURNED Q 2 HOURS
--- NOTE | 2020-05-26 21:31 | PC.NURSE ---
SMALL OPEN SORE NOTED TO COCCYX AREA, ALLEVYN IN PLACE, PT TURNED Q 2 HOURS
--- NOTE | 2020-05-26 21:31 | PC.NURSE ---
SMALL OPEN SORE NOTED TO COCCYX AREA, ALLEVYN IN PLACE, PT TURNED Q 2 HOURS
--- NOTE | 2020-05-26 21:32 | PC.NURSE ---
SMALL OPEN SORE NOTED TO COCCYX AREA, ALLEVYN IN PLACE, PT TURNED Q 2 HOURS
--- NOTE | 2020-05-26 21:32 | PC.NURSE ---
BRUISE NOTED TO L HIP
--- NOTE | 2020-05-26 21:32 | PC.NURSE ---
BRUISE NOTED TO L HIP
[2020-05-26 21:41] LABS: Hematocrit 34.6 % (37.0-47.0)
--- NOTE | 2020-05-26 22:05 | PC.NURSE ---
2100 COURTESY ROUND PT AWAKE. TRASH AND LINENS EMPTIED AT THI.S TIME
[2020-05-26 22:32] LABS: Hemoglobin 11.2 g/dL (12.2-16.2)
[2020-05-27] VITALS (25 sets, daily range): BP systolic 100–145; BP diastolic 52–78; PULSE 74–91; RESP 12–18; TEMP 32.3–43; O2SAT 91–99; BMI 27.8; BMI 28.0
--- NOTE | 2020-05-27 04:30 | PC.NURSE ---
0225- NOTIFIED MD POPEYE OF PT. IN SEVERE PAIN; PT. REPORTED L LEG HAVING SPASMS ; NOTED PT. TO HAVE TREMORS, INCREASED RR AND CRYING. APPLIED ICE PACK, REPOSITIONED PT. AND ADMINISTERED TYLENOL PER SEP. ORDER: DILAUDID 1MG IV X1 NOW, THEN CONTINUE WITH PRN REGIMEN PER SEP. PT. C/O NO PAIN AT THIS TIME. DENIES N/V/D, SOA OR DIZZINESS. BLE EQUAL IN PULSES, AND TEMPERATURE, SEVERE WEAKNESS NOTED TO LLE.
[2020-05-27 06:31] LABS: Basophils % 0.2 % (0.1-2.0); Eosinophils % 0.3 % (0.1-12.0); Hemoglobin 10.4 g/dL (12.2-16.2); Lymphocytes # 0.9 K/mm3 (0.7-4.5); Lymphocytes % 11.6 % (10-50); Mean Corpuscular HGB Conc 31.6 g/dL (31.8-35.4); Mean Corpuscular Hemoglobin 30.1 pg (27.0-31.2); Mean Corpuscular Volume 95.2 fl (81-99); Mean Platelet Volume 7.4 fl (7.4-10.4); Monocytes # 0.4 K/mm3 (0.1-1.0); Monocytes % 4.5 % (1.7-9.3); Neutrophils # 6.7 K/mm3 (1.8-7.8); Neutrophils % 83.4 % (37.0-80.0); Platelet Count 342 K/mm3 (142-424); Red Blood Count 3.46 M/mm3 (4.20-5.40); Red Cell Distribution Width 17.9 % (11.5-17.5)
[2020-05-27 06:32] LABS: Chloride 114 mmol/L (98-107); Sodium 135 mmol/L (136-145)
[2020-05-27 06:33] LABS: Potassium 5.6 mmoL/L (3.5-5.1)
[2020-05-27 06:35] LABS: Alanine Aminotransferase 31 U/L (12-78); Albumin Level 2.3 g/dl (3.5-5.0); Albumin/Globulin Ratio 0.7 (1.1-1.8); Alkaline Phosphatase 146 U/L (38-126); Anion Gap 11.6 mEq/L (5-15); Aspartate Amino Transferase 49 U/L (14-36); Bilirubin,Total 0.2 mg/dl (0.2-1.3); Blood Urea Nitrogen 56 mg/dl (7-17); Carbon Dioxide 15 mmol/L (22.0-30.0); Creatinine Clearance Estimated 33 mL/min (50-200); Estimated Glomerular Filt Rate 25 ml/min (>60); GFR (African American) 30 ML/MIN (>60); Globulin 3.1 g/dL (1.3-3.2); Total Protein,Serum 5.4 g/dl (6.3-8.2)
[2020-05-27 06:36] LABS: Calcium 7.8 mg/dl (8.4-10.2)
[2020-05-27 06:43] LABS: Glucose 46 mg/dl (74-100)
--- NOTE | 2020-05-27 07:03 | HMH.ACPN2 ---
Internal Medicine - PN: Subj *Date: 05/27/20 *Time: 08:30 Interval history: Stable overnight. K has improved. Pt cleared by cardiology, planning for surgical fixation of fracture today. NPO overnight. Had an episode of Hypoglycemia overnight requiring amp of D50. Alert and in pain this morning. No SOA, CP. denies Nausea, or confusion. Exam Vital signs and Labs for Last 24 Hours: Temp Pulse Resp BP Pulse Ox 97.5 F L 91 H 16 135/54 L 96 05/27/20 04:00 05/27/20 04:00 05/27/20 04:00 05/27/20 04:00 05/27/20 04:00 Laboratory Results - last 24 hr 05/26/20 11:10: WBC 7.3, RBC 2.13 L, Hgb 6.4 L*, Hct 21.1 L*, MCV 99.1 H, MCH 30.0, MCHC 30.2 L, RDW 16.5, Plt Count 459 H, MPV 7.6, Neut % (Auto) 74.6, Lymph % (Auto) 21.4, [place] % (Auto) 3.5, Eos % (Auto) 0.5, Baso % (Auto) 0.1, Neut # (Auto) 5.4, Lymph # (Auto) 1.6, [place] # (Auto) 0.3, Eos # (Auto) 0.0, Baso # (Auto) 0.0 05/26/20 11:10: PT 13.2 H, INR 1.21 H, APTT 27.8 05/26/20 11:10: Sodium 131 L, Potassium 6.0 H, Chloride 111 H, Carbon Dioxide 16 L, Anion Gap 10.0, BUN 52 H, Creatinine 2.00 H, Estimated Creat Clear 38, Estimated GFR 25 L, Est GFR ( Amer) 30 L, Glucose 63 L, Calcium 7.6 L 05/26/20 11:50: SARS-CoV-2 IgG Ab (Rapid) Negative, SARS-CoV-2 IgM Ab (Rapid) Negative 05/26/20 12:05: Blood Type A Positive, Antibody Screen Negative, Crossmatch (AHG) See Detail 05/26/20 12:33: Urine Color Yellow, Urine Appearance Cloudy, Urine pH 6.0, Ur Specific [place] 1.010, Urine Protein 1+, Urine Glucose (UA) Negative, Urine Ketones Negative, Urine Blood 2+, Urine Nitrate Positive, Urine Bilirubin Negative, Urine Urobilinogen 0.2, Ur Leukocyte Esterase 2+ A, Urine RBC Occasional, Urine WBC 50-100, Ur Squamous Epith Cells Occasional, Amorphous Sediment 1+, Urine Bacteria 2+ 05/26/20 20:20: Sodium 135 L, Potassium 5.8 H, Chloride 112 H, Carbon Dioxide 16 L, Anion Gap 12.8, BUN 54 H, Creatinine 2.00 H, Estimated Creat Clear 33, Estimated GFR 25 L, Est GFR ( Amer) 30 L, Glucose 78 D, Calcium 7.6 L 05/26/20 21:23: Hgb 11.2 L D, Hct 34.6 L 05/27/20 06:12: WBC 8.0, RBC 3.46 L D, Hgb 10.4 L, Hct 33.0 L, MCV 95.2, MCH 30.1, MCHC 31.6 L, RDW 17.9 H, Plt Count 342 D, MPV 7.4, Neut % (Auto) 83.4 H, Lymph % (Auto) 11.6, [place] % (Auto) 4.5, Eos % (Auto) 0.3, Baso % (Auto) 0.2, Neut # (Auto) 6.7, Lymph # (Auto) 0.9, [place] # (Auto) 0.4, Eos # (Auto) 0.0, Baso # (Auto) 0.0 05/27/20 06:12: Sodium 135 L, Potassium 5.6 H, Chloride 114 H, Carbon Dioxide 15 L, Anion Gap 11.6, BUN 56 H, Creatinine 2.00 H, Estimated Creat Clear 33, Estimated GFR 25 L, Est GFR ( Amer) 30 L, Glucose 46 L D, Calcium 7.8 L, Total Bilirubin 0.2, AST 49 H, ALT 31, Alkaline Phosphatase 146 H, Total Protein 5.4 L, Albumin 2.3 L, Globulin 3.1, Albumin/Globulin Ratio 0.7 L I & O for Last 24 hours: Intake & Output 05/24/20 05/25/20 05/26/20 05/27/20 23:59 23:59 23:59 23:59 Intake Total 250 / 250 684 / 684 Balance 250 / 250 684 / 684 Weight 79 kg 78.5 kg Narrative: Chronically ill appearing, NAD on ambient air - *Routine HEENT Exam Head: Present: normocephalic, bitemporal wasting Eye: Present: EOMI, PERRL ENT: Present: mucous membranes dry - *Routine Neck Exam Present: supple. Absent: lymphadenopathy - *Routine Respiratory Exam Present: CTA bilaterally - *Routine Cardiovascular Exam Present: RRR - *Routine Abdominal Exam Present: soft, normoactive bowel sounds. Absent: tenderness - *Routine Extremities Exam Absent: cyanosis, clubbing, edema Comments: Shortened left lower extremity. Poor tissue perfusion but at baseline. No edema at this point. Significant pain with hip range of motion - *Routine Skin Exam Present: warm. pallor, dry - *Routine Neurological Exam Present: alert, oriented X3 Assessment and Plan (1) Femoral neck fracture Status: Acute Qualifiers: Encounter type: initial encounter Fracture type: closed Laterality: left Qualified Code(s): S72.002A - Fracture
--- NOTE | 2020-05-27 07:07 | PC.NURSE ---
0644- lab notified this rn of critical glucose value: 46 0648- 07/23 amp of d50 administered to pt. per protocol 0649- fsbs: 177; pt. a&ox4; denies pain and has no complaints 0654- md tatyana notified of above situation. New orders: d/c ns @50 ml/hr, administer d5ns @50 ml/hr 0700- fsbs: 88; administering d5ns at this time
[2020-05-27 07:12] LABS: POC Glucose,Bedside 177 (70-110)
[2020-05-27 07:12] LABS: POC Glucose,Bedside 88 (70-110)
--- NOTE | 2020-05-27 12:06 | PC.NURSE ---
Pt down at this time to surgery.
--- NOTE | 2020-05-27 14:28 | HMH.ANESCL ---
[facility] Anesthesia Checklist - Patient Identification Patient Identification: Arm Band - Structural Data Admitted From: Inpatient Planned Operative Procedure/s: Left Hip Hemiarthroplasty Consent for Planned Operative Procedure(s) Verified: Yes Verified Documents: Surgical Consent, History and Physical - NPO Status Verified Time NPO: 00:00 - Additional verifications Anesthesia Reactions: No - Airway Assessment C-Spine Mobility Assessed: Yes (mp2) TMJ Mobility Assessed: Yes Dentition: Edentulous - Neurological Assessment Level of Consciousness: Awake, Alert - Anesthesia Plan Anesthesia Risk discussed: Yes Anesthesia Plan: Verified ASA Class: III Anesthesia Type: General [facility] History I have reviewed the patient's past medical history: Yes Medical History: Reports:: Anxiety, Congestive Heart Failure, Depression, Hypertension, Renal Disease Denies:: Cancer, Diabetes Mellitus Type 1, Diabetes Mellitus Type 2, MRSA *Have you ever received a pneumonia vaccine?: No *Have you received a flu vaccine this season?: No Other Medical History: Reports: Anemia, Arthritis, Cataracts, Sinus Problems Anesthesia experience/problems:: nac Other Surgeries: Yes: , Tubal Ligation, Other Amputation: No Fractures: No - *Social History Last grade of school completed: 11th or 12th Smoking Status: Never smoker Alcohol Intake: never Alcohol Intake Frequency:: other Substance Use Type: denies use *Occupational Status:: retired Housing: house Household Members: caregiver *Travel in the last 8 weeks: None - Psychiatric History Pschychiatric History:: Reports:: Anxiety, Depression Family Hx:: Hyperlipidemia, Stroke
--- NOTE | 2020-05-27 15:22 | SUR.OPER ---
1502-17ml's betadine mixed in 500ml's of normal saline irrigated in wound for 3 minutes at this time per
--- NOTE | 2020-05-27 16:11 | HMH.ANESI ---
[facility] Anesthesia Record Part I Intake, IV Amount: 1,100 Estimated blood loss (mL): 200 Urine output (mL): 400 Blood Pressure: 100/55 SaO2: 95 Pulse Rate: 78 Respiratory Rate: 16 Temperature: 97 F Patient is:: Drowsy, Stable Stable to PACU at:: 16:05
--- NOTE | 2020-05-27 16:16 | XR_ITS ---
PROCEDURE: XR HIP LT 2-3V W/PELVIS CLINICAL INDICATION: s/p left hip hemiarthroplasty Follow-up surgery COMPARISON: CR XR HIP LT 2-3V W/PELVIS from 05/26/2020 FINDINGS: Status post left hip hemiarthroplasty with good alignment. No evidence of orthopedic complication. Postsurgical changes are present IMPRESSION: Good alignment status post left hip hemiarthroplasty Dictated by: Xavier Lovell MD 05/27/2020 16:39 Xavier Lovell MD in OV 05/27/2020 16:39
[2020-05-27 16:34] LABS: POC Glucose,Bedside 59 (70-110)
--- NOTE | 2020-05-27 16:44 | HMH.OPNOTE ---
Date of procedure: 05/27/20 Pre-op Diagnosis:: Displaced Fracture neck of femur, LEFT hip Post-op Diagnosis:: Same Procedure performed:: Uncemented bipolar hemiarthroplasty, LEFT hip Surgeon:: Aguilar Shea MD Library Historian(s):: Emilee Rahman Anesthesia: GETA Estimated blood loss (mL): 200 Clinical Note:: Patient is a 70-year-old female who sustained a displaced intracapsular fracture neck of left femur following a mechanical fall at home. A hemiarthroplasty is indicated to relieve pain and restore function. The operation is clinically indicated and is the standard of care for this type of fracture. Please refer to my consult note for full details. Operative findings:: Displaced sub capital femoral neck fracture of the left hip as noted on the preoperative hip x-rays. The articular cartilage of the acetabulum is well maintained without evidence of any significant arthritis. The proximal femur bone quality is good. Operative note:: On the day of the procedure the patient and her daughter met on the floor, and a physical examination was performed. The operating side and site were marked and initialed by me. I reviewed the diagnosis, natural history and management options in detail including both the nonsurgical and surgical. Given the nature of the fracture, I have recommended surgery in the form of a hemiarthroplasty of the left hip. I have discussed the procedure, risks and benefits, alternatives, potential complications and expected outcomes with patient and her daughter. The complications discussed include but are not limited to infection, injury to nerves and blood vessels, DVT and PE, femur fracture, limb length inequality, dislocation, implant failure, loosening, acetabular wear, osteolysis, periprosthetic femur fracture, heterotopic ossification, abductor weakness and a limp, incomplete relief of pain, incomplete return of function or motion, likely need for further surgery in future including revision, anesthetic/medical complications including heart attack, stroke, transfusion reactions and even . We discussed how any of these events can be devastating. We have discussed nonsurgical alternatives as well. We also discussed the postoperative course including the rehab and physical therapy required. Patient/family understood the risks, agreed to proceed with surgery, signed the consent form and no guarantees or assurances were given or implied. The patient was brought to the operating room and a general anesthesia was administered by the primary care provider. The patient was then transferred onto the operating table and positioned in the right lateral decubitus position with the left hip facing upwards. All the bony prominences were well-padded. The left lower extremity was then prepped and draped in the usual sterile fashion. The entire operative team used isolation suits and room traffic was controlled. The surgical landmarks and incision was marked over the skin with a marking pen. Ioban sterile drape was used to cover the operative site and isolate the perineum completely from the operative field. Administration of prophylactic IV antibiotics (Ancef and vancomycin) was confirmed with the primary care provider. Patient also received 2 doses of tranexamic acid-1 dose before and second dose after surgery- to reduce the perioperative bleeding. A preprocedure timeout was performed as per hospital protocol. A posterior approach was used to the hip joint. An electrocautery was used for hemostasis. The skin incision was made centering over the posterior border of the greater trochanter extending posteriorly in a curvilinear fashion across the buttock. The dissection was carried through subcutaneous tissue down to the fascia eulalia. A large subcutaneous hematoma was noted over the lateral aspect of the upper thigh distal to the greater trochanter. The hematoma was evacuated and irrigated with normal saline. The fascia eulalia and gluteus fascia were split and a Charnley retractor wa
[2020-05-27 16:59] LABS: POC Glucose,Bedside 59 (70-110)
[2020-05-27 17:09] LABS: POC Glucose,Bedside 129 (70-110)
--- NOTE | 2020-05-27 17:54 | SUR.OPER ---
1627: notified Angela Frazier CRNA of FSBS of 59. V.O. to try and have the pt drink some oramge juice, if pt. refuses give 1.2 amp of d50. 1652: after pt. drank about a 100 mL of OJ, FSBS recheck was 59. at this time I gave 1/2 amp of D50 per Angela Frazier CRNA. 1702: FSBS recheck was 129.
--- NOTE | 2020-05-27 17:56 | SUR.OPER ---
1700: Report called to Thad Alejandro RN.
--- NOTE | 2020-05-27 17:57 | SUR.PHASEI ---
1725: pt. transported to med surg via bed. Pt. states she has no pain at this time. Dressing on hip is CDI and drain is functioning properly.
--- NOTE | 2020-05-27 18:03 | P.PN_ITS ---
[facility] Anesthesia Record Part II Discharge Time: 17:25 Destination: Medical Surgical Department PACU nurse assessment reviewed?: Yes Patient Condition:: Good Anesthesia Complications:: None Swallowing reflex intact?: Yes Cyanosis?: No Blood Pressure: 112/64 Pulse Rate: 76 Temperature: 97 F Mental Status: Alert & Oriented Pain level:: 0 Nausea and/or vomitting:: None Intake, IV Amount: 0
--- NOTE | 2020-05-27 18:36 | PC.NURSE ---
1600 sepsis screen not done r/t pt not being in room- not nausea. Pt returned to floor at 1730. Bear hugger in place r/t rectal temp 92.0. Currently 92.8. Other vital signs are wnl. Will cont to mx this shift. Pt is alert and oriented and drinking dr pepper at this time. Speech is slow.
--- NOTE | 2020-05-27 19:15 | PC.NURSE ---
magnus with PT notified of physical therapy consult on pt.
--- NOTE | 2020-05-27 23:26 | PC.NURSE ---
rectal temp @ 2315 is 97.6. pt's family states that pt temperature is always in the 97s. so Linda paws removed at this time. will continue to monitor temp
[2020-05-28] VITALS: BP 113/83; PULSE 97; RESP 16; TEMP 36.7; O2SAT 97
--- NOTE | 2020-05-28 03:44 | PC.NURSE ---
Pt A&OX4 lungs CTA. pt denies SOA. IS being used while awake. Pt c/o lt hip pain X1 this shift medicated per MAR. surgical dressing in place on lt hip c/d/i. Accordion drain draining 140ml bloody drainage. SCUDs applied to rt leg. f/c draining yellow urine
[2020-05-28 04:00] VITALS: BP 115/62; PULSE 85; RESP 17; TEMP 36.6; O2SAT 99
[2020-05-28 05:00] VITALS: BMI 28.3
[2020-05-28 06:04] LABS: Basophils % 0.1 % (0.1-2.0); Lymphocytes # 0.9 K/mm3 (0.7-4.5); Mean Corpuscular HGB Conc 31.5 g/dL (31.8-35.4); Mean Corpuscular Hemoglobin 30.2 pg (27.0-31.2); Monocytes # 0.4 K/mm3 (0.1-1.0); Neutrophils # 8.3 K/mm3 (1.8-7.8); White Blood Count 9.6 K/mm3 (4.8-10.8)
[2020-05-28 06:13] LABS: Eosinophils % 0.1 % (0.1-12.0); Hematocrit 27.9 % (37.0-47.0); Hemoglobin 8.8 g/dL (12.2-16.2); Lymphocytes % 9.2 % (10-50); Mean Platelet Volume 7.9 fl (7.4-10.4); Monocytes % 4.5 % (1.7-9.3); Neutrophils % 86.1 % (37.0-80.0); Platelet Count 304 K/mm3 (142-424); Red Blood Count 2.91 M/mm3 (4.20-5.40); Red Cell Distribution Width 18.5 % (11.5-17.5)
[2020-05-28 06:15] LABS: MANUAL DIFFERENTIAL MANUAL DIFFERENTIAL (MANUAL DIFF)
[2020-05-28 06:20] LABS: Anisocytosis 1+; Hypochromasia 1+; Lymphocytes % 11 % (10-50); Macrocytosis 1+; Neutrophils % 85 % (42-76); Platelet Estimate Normal; Poikilocytosis 1+; Total Cells Counted 100
[2020-05-28 06:21] LABS: Acanthocytes 1+; Chloride 115 mmol/L (98-107); Potassium 5.2 mmoL/L (3.5-5.1); Sodium 136 mmol/L (136-145)
[2020-05-28 06:24] LABS: Alanine Aminotransferase 29 U/L (12-78); Albumin Level 1.9 g/dl (3.5-5.0); Albumin/Globulin Ratio 0.7 (1.1-1.8); Alkaline Phosphatase 116 U/L (38-126); Anion Gap 11.2 mEq/L (5-15); Aspartate Amino Transferase 50 U/L (14-36); Blood Urea Nitrogen 52 mg/dl (7-17); Carbon Dioxide 15 mmol/L (22.0-30.0); Creatinine Clearance Estimated 34 mL/min (50-200); Estimated Glomerular Filt Rate 25 ml/min (>60); GFR (African American) 30 ML/MIN (>60); Globulin 2.7 g/dL (1.3-3.2); Total Protein,Serum 4.6 g/dl (6.3-8.2)
[2020-05-28 06:25] LABS: Bilirubin,Total < 0.1 mg/dl (0.2-1.3); Calcium 7.1 mg/dl (8.4-10.2); Glucose 115 mg/dl (74-100)
[2020-05-28 08:00] VITALS: BP 102/55; PULSE 67; RESP 17; TEMP 36.8; O2SAT 97
--- NOTE | 2020-05-28 08:38 | HMH.ACPN2 ---
Internal Medicine - PN: Subj *Date: 05/28/20 *Time: 08:38 Interval history: Patient feels pretty good, reports that her hip is very sore but her actual sharp pain level is minimal. No respiratory or cardiac symptomatology. Feels fairly energetic. Exam Vital signs and Labs for Last 24 Hours: Temp Pulse Resp BP Pulse Ox 97.8 F 85 17 115/62 99 05/28/20 04:00 05/28/20 04:00 05/28/20 04:00 05/28/20 04:00 05/28/20 04:00 Laboratory Results - last 24 hr 05/27/20 16:27: POC Glucose 59 L 05/27/20 16:52: POC Glucose 59 L 05/27/20 17:02: POC Glucose 129 H 05/28/20 05:40: WBC 9.6, RBC 2.91 L, Hgb 8.8 L D, Hct 27.9 L, MCV 96.0, MCH 30.2, MCHC 31.5 L, RDW 18.5 H, Plt Count 304, MPV 7.9, Neut % (Auto) 86.1 H, Lymph % (Auto) 9.2 L, [place] % (Auto) 4.5, Eos % (Auto) 0.1, Baso % (Auto) 0.1, Neut # (Auto) 8.3 H, Lymph # (Auto) 0.9, [place] # (Auto) 0.4, Eos # (Auto) 0.0, Baso # (Auto) 0.0, Total Counted 100, Neutrophils % (Manual) 85 H, Band Neutrophils % 4.0, Lymphocytes % (Manual) 11, Platelet Estimate Normal, Hypochromasia 1+, Poikilocytosis 1+, Anisocytosis 1+, Macrocytosis 1+, Acanthocytes (Spur) 1+ 05/28/20 05:40: Sodium 136, Potassium 5.2 H, Chloride 115 H, Carbon Dioxide 15 L, Anion Gap 11.2, BUN 52 H, Creatinine 2.00 H, Estimated Creat Clear 34, Estimated GFR 25 L, Est GFR ( Amer) 30 L, Glucose 115 H D, Calcium 7.1 L, Total Bilirubin < 0.1 L, AST 50 H, ALT 29, Alkaline Phosphatase 116, Total Protein 4.6 L, Albumin 1.9 L D, Globulin 2.7, Albumin/Globulin Ratio 0.7 L I & O for Last 24 hours: Intake & Output 05/25/20 05/26/20 05/27/20 05/28/20 11:59 11:59 11:59 11:59 Intake Total 934 / 934 1868 / 1868 Output Total 415 / 415 Balance 934 / 934 1453 / 1453 Weight 200 lb 173 lb 1.006 oz 176 lb 5.917 oz Microbiology Reports for the Last 24 Hours: Microbiology 05/26/20 12:33 Urine,Catheterized Urine Culture - Final Escherichia coli Narrative: Alert, oriented x3. Edentulous but no oral lesions. Lungs have good air movement, heart rate regular. Abdomen soft and nontender. Able to move toes well, distal perfusion normal. Neurologic exam otherwise intact Assessment and Plan (1) Femoral neck fracture Status: Acute Qualifiers: Encounter type: initial encounter Fracture type: closed Laterality: left Qualified Code(s): S72.002A - Fracture of unspecified part of neck of left femur, initial encounter for closed fracture Category: Medical Code(s): S72.009A - Fracture of unspecified part of neck of unspecified femur, initial encounter for closed fracture (2) Hyperkalemia Status: Acute Category: Medical Code(s): E87.5 - Hyperkalemia (3) Anemia Status: Chronic Qualifiers: Anemia type: due to chronic kidney disease Category: Medical Code(s): D64.9 - Anemia, unspecified (4) CHF (congestive heart failure) Status: Chronic Qualifiers: Heart failure type: diastolic Heart failure chronicity: chronic Qualified Code(s): I50.32 - Chronic diastolic (congestive) heart failure Category: Medical Code(s): I50.9 - Heart failure, unspecified (5) Chronic kidney disease (CKD), stage III (moderate) Status: Chronic Category: Medical Code(s): N18.3 - Chronic kidney disease, stage 3 (moderate) (6) LUISITO (acute kidney injury) Status: Acute Category: Medical Code(s): N17.9 - Acute kidney failure, unspecified (7) Sjogren's disease Status: Chronic Category: Medical Code(s): M35.00 - Sicca syndrome, unspecified - Assessment and plan all Dx Assessment and Plan for all problems:: Given her hyperkalemia I have stopped her angiotensin receptor akash and increase the dose of her calcium channel akash. Watch potassium carefully tomorrow. Anemia postoperative seems stable. Watch this tomorrow, high likelihood of repeat transfusion given her baseline anemia from chronic disease and rheumatologic disease.
[2020-05-28 12:00] VITALS: BP 104/52; PULSE 81; RESP 19; TEMP 36.7; O2SAT 97
--- NOTE | 2020-05-28 12:14 | HMH.PTEV ---
Physical Therapy Evaluation Rehab PT IP Evaluation Start: 05/27/20 16:37 Freq: ONCE Status: Active Protocol: Document 05/28/20 11:57 PDESEROUX (Rec: 05/28/20 12:14 PDESEROUX [id number]) Subjective/History History History Pt.'s daughter was present during initial eval. Pt. is a 70 year old female who presents to 2nd floor [facility] Inpatient w/ complaints of a 2/10 ache s/ p uncemented bipolar hemiarthroplasty, LEFT hip. Pt . reports she was using her restroom at home where she suddenly became dizzy and had a fall on the L hip. Pt. reports she lives w/ her boyfriend in a 1-story home w/ o steps on the inside nor outside. Pt. also reports her children come and go when needed for assistance. Pt. reports owning [employer] ADs that include FWW, rollators, walk-in shower, and a chair lift for assistance. Pt. reports she ambulates w/ a walker @ home. PMH significant for congestive heart failure, autoimmune liver cirrhosis, and chronic kidney disease. Subjective Subjective Pt. reports I can move my leg a little bit better, but there's still a constant ache in that hip. Pt. was supine in hospital bed upon entering into room. Pt. was left supine in bed w/ call light and bed side table in reach w/ her daughter present. Rehab PT IP Eval Objective Appearance Patient Behavior Appropriate,Cooperative, Anxious,Fearful Patient Orientation Person,Place,Time,Day of Week, Situation Difficulty following instructions none Speech Pattern Clear,Appropriate,Coherent Ambulation Patient Able to Ambulate Yes Ambulation Observation IP General Gait Pattern Observation Antalgic Gait,Decrease Weight Bear (L),Decrease Stride Lngth (R) Ambulat
--- NOTE | 2020-05-28 14:44 | HMH.ORTHPN ---
Subjective Date: 05/28/20 Time: 15:00 Principal diagnosis: Status post hemiarthroplasty, left hip Interval history: Patient is status post hemiarthroplasty, left hip post op day #1. Patient is lying down on the bed; says she is doing well. She says her hip is 'fair' but she has generalized body aches; says her pain is well-controlled with medication. No history of any nausea or vomiting. No history of any cough, chest pain, shortness of breath or palpitations. No history of any distal tingling or numbness. PN: Obj Ex Vital signs: Temp Pulse Resp BP Pulse Ox 98.3 F 67 17 102/55 L 97 05/28/20 08:00 05/28/20 08:00 05/28/20 08:00 05/28/20 08:00 05/28/20 08:00 Narrative: Laboratory Results - last 24 hr 05/27/20 16:27: POC Glucose 59 L 05/27/20 16:52: POC Glucose 59 L 05/27/20 17:02: POC Glucose 129 H 05/28/20 05:40: WBC 9.6, RBC 2.91 L, Hgb 8.8 L D, Hct 27.9 L, MCV 96.0, MCH 30.2, MCHC 31.5 L, RDW 18.5 H, Plt Count 304, MPV 7.9, Neut % (Auto) 86.1 H, Lymph % (Auto) 9.2 L, [place] % (Auto) 4.5, Eos % (Auto) 0.1, Baso % (Auto) 0.1, Neut # (Auto) 8.3 H, Lymph # (Auto) 0.9, [place] # (Auto) 0.4, Eos # (Auto) 0.0, Baso # (Auto) 0.0, Total Counted 100, Neutrophils % (Manual) 85 H, Band Neutrophils % 4.0, Lymphocytes % (Manual) 11, Platelet Estimate Normal, Hypochromasia 1+, Poikilocytosis 1+, Anisocytosis 1+, Macrocytosis 1+, Acanthocytes (Spur) 1+ 05/28/20 05:40: Sodium 136, Potassium 5.2 H, Chloride 115 H, Carbon Dioxide 15 L, Anion Gap 11.2, BUN 52 H, Creatinine 2.00 H, Estimated Creat Clear 34, Estimated GFR 25 L, Est GFR ( Amer) 30 L, Glucose 115 H D, Calcium 7.1 L, Total Bilirubin < 0.1 L, AST 50 H, ALT 29, Alkaline Phosphatase 116, Total Protein 4.6 L, Albumin 1.9 L D, Globulin 2.7, Albumin/Globulin Ratio 0.7 L Microbiology 05/26/20 12:33 Urine,Catheterized Urine Culture - Final Escherichia coli Exam General appearance: alert, awake, no acute distress Cardiovascular: regular rate & rhythm, normal peripheral pulses Respiratory: No respiratory distress noted, speaks in full sentences ABD: soft and non tender Neuro: alert, awake, oriented x 3 Genitourinary: Catheter in situ. On examination of the lower extremities the limb lengths are equal. Thigh and calf are soft and nontender. On examination of the LEFT hip the dressings are clean, dry and intact. Surgical drain in place and there is about 50 cc drainage. Distal pulses are 1+. Distal sensation is intact to light touch throughout. No motor deficits noted distally. - Urinary Catheter Management Cosby Cath placed during this visit: no Progress Note: A&P (1) Femoral neck fracture Status: Acute (2) Hyperkalemia Status: Acute (3) Anemia Status: Chronic (4) CHF (congestive heart failure) Status: Chronic (5) Chronic kidney disease (CKD), stage III (moderate) Status: Chronic (6) LUISITO (acute kidney injury) Status: Acute (7) Sjogren's disease Status: Chronic Assessment and Plan for All Diagnoses:: I have reviewed the clinical findings and progress with the patient. Patient is doing well and reports no particular problems in relation to her left hip. Patient says she started mobilization with physical therapy this morning. Advised her to continue abduction pillow when in bed and continue standard precautions for the posterior approach hip replacement. Discontinue IV fluids and discontinue the urinary catheter. Case management consult regarding discharge planning. Continue DVT prophylaxis for 6 weeks postop. Continue medical management as per Dr. Pastrana.
[2020-05-28 16:00] VITALS: BP 96/54; PULSE 76; RESP 20; TEMP 36.8; O2SAT 98
--- NOTE | 2020-05-28 19:41 | PC.NURSE ---
Pt has been alerted and able to make needs known. Abductor pillow in place. CB in reach. Family intermittently her to visit. NAD. Pain meds per sep. Lungs cta. Hernia noted to abd. Dsg cdi to L hip and coccyx. Pharm vte. VSS.
[2020-05-28 20:00] VITALS: BP 127/59; PULSE 73; RESP 12; TEMP 36.4; O2SAT 100
[2020-05-29 03:48] VITALS: BP 108/56; PULSE 75; RESP 16; TEMP 36.4; O2SAT 99
--- NOTE | 2020-05-29 04:24 | PC.NURSE ---
Pt A&OX4 lungs CTA. pt c/o hip pain medicated per MAR. surgical dressing in place c/d/i. accordion draining 50ml bloody drainage. pt voided per bedpan x1.
[2020-05-29 05:07] VITALS: BMI 29.9
[2020-05-29 07:27] LABS: Chloride 113 mmol/L (98-107)
[2020-05-29 07:28] LABS: Potassium 4.9 mmoL/L (3.5-5.1); Sodium 134 mmol/L (136-145)
[2020-05-29 07:31] LABS: Anion Gap 9.9 mEq/L (5-15); Blood Urea Nitrogen 55 mg/dl (7-17); Calcium 7.1 mg/dl (8.4-10.2); Carbon Dioxide 16 mmol/L (22.0-30.0); Creatinine Clearance Estimated 34 mL/min (50-200); Estimated Glomerular Filt Rate 23 ml/min (>60); GFR (African American) 28 ML/MIN (>60); Glucose 67 mg/dl (74-100)
[2020-05-29 07:37] LABS: Basophils % 0.2 % (0.1-2.0); Eosinophils # 0.1 K/mm3 (0.0-0.4); Eosinophils % 2.1 % (0.1-12.0); Hematocrit 29.5 % (37.0-47.0); Hemoglobin 9.3 g/dL (12.2-16.2); Lymphocytes # 0.9 K/mm3 (0.7-4.5); Lymphocytes % 15.1 % (10-50); Mean Corpuscular HGB Conc 31.7 g/dL (31.8-35.4); Mean Corpuscular Hemoglobin 30.8 pg (27.0-31.2); Mean Corpuscular Volume 97.1 fl (81-99); Mean Platelet Volume 7.5 fl (7.4-10.4); Monocytes # 0.2 K/mm3 (0.1-1.0); Monocytes % 4.3 % (1.7-9.3); Neutrophils # 4.5 K/mm3 (1.8-7.8); Neutrophils % 78.3 % (37.0-80.0); Platelet Count 311 K/mm3 (142-424); Red Blood Count 3.03 M/mm3 (4.20-5.40); Red Cell Distribution Width 18.6 % (11.5-17.5); White Blood Count 5.7 K/mm3 (4.8-10.8)
[2020-05-29 08:00] VITALS: BP 99/58; PULSE 75; RESP 17; TEMP 36.5; O2SAT 98
--- NOTE | 2020-05-29 08:50 | HMH.ACPN2 ---
Internal Medicine - PN: Subj *Date: 05/29/20 *Time: 08:50 Interval history: Patient is pleasant, talkative. Orthopedics note reviewed and appreciated. Physical therapy note reviewed and appreciated also, recommended home health given the significant help she has at home. Patient is extremely excited about this. Exam Vital signs and Labs for Last 24 Hours: Temp Pulse Resp BP Pulse Ox 97.7 F 75 17 99/58 L 98 05/29/20 08:00 05/29/20 08:00 05/29/20 08:00 05/29/20 08:00 05/29/20 08:00 Laboratory Results - last 24 hr 05/29/20 06:38: WBC 5.7 D, RBC 3.03 L, Hgb 9.3 L, Hct 29.5 L, MCV 97.1, MCH 30.8, MCHC 31.7 L, RDW 18.6 H, Plt Count 311, MPV 7.5, Neut % (Auto) 78.3, Lymph % (Auto) 15.1, [place] % (Auto) 4.3, Eos % (Auto) 2.1, Baso % (Auto) 0.2, Neut # (Auto) 4.5, Lymph # (Auto) 0.9, [place] # (Auto) 0.2, Eos # (Auto) 0.1, Baso # (Auto) 0.0 05/29/20 06:38: Sodium 134 L, Potassium 4.9, Chloride 113 H, Carbon Dioxide 16 L, Anion Gap 9.9, BUN 55 H, Creatinine 2.10 H, Estimated Creat Clear 34, Estimated GFR 23 L, Est GFR ( Amer) 28 L, Glucose 67 L, Calcium 7.1 L I & O for Last 24 hours: Intake & Output 05/26/20 05/27/20 05/28/20 05/29/20 11:59 11:59 11:59 11:59 Intake Total 934 / 934 2108 / 2108 120 / 120 Output Total 415 / 415 520 / 520 Balance 934 / 934 1693 / 1693 -400 / -400 Weight 200 lb 173 lb 1.006 oz 176 lb 5.917 oz 186 lb 8.177 oz Microbiology Reports for the Last 24 Hours: Microbiology 05/26/20 12:33 Urine,Catheterized Urine Culture - Final Escherichia coli Narrative: Alert, pleasant. Oriented x3. Abdomen soft and nontender. Lungs clear. Heart rate regular. Orthopedic exam per Dr. Shea. Neurologically intact. Oropharynx clear, edentulous. Assessment and Plan (1) Femoral neck fracture Status: Acute Qualifiers: Encounter type: initial encounter Fracture type: closed Laterality: left Qualified Code(s): S72.002A - Fracture of unspecified part of neck of left femur, initial encounter for closed fracture Category: Medical Code(s): S72.009A - Fracture of unspecified part of neck of unspecified femur, initial encounter for closed fracture (2) Hyperkalemia Status: Acute Category: Medical Code(s): E87.5 - Hyperkalemia (3) Anemia Status: Chronic Qualifiers: Anemia type: due to chronic kidney disease Category: Medical Code(s): D64.9 - Anemia, unspecified (4) CHF (congestive heart failure) Status: Chronic Qualifiers: Heart failure type: diastolic Heart failure chronicity: chronic Qualified Code(s): I50.32 - Chronic diastolic (congestive) heart failure Category: Medical Code(s): I50.9 - Heart failure, unspecified (5) Chronic kidney disease (CKD), stage III (moderate) Status: Chronic Category: Medical Code(s): N18.3 - Chronic kidney disease, stage 3 (moderate) (6) LUISITO (acute kidney injury) Status: Acute Category: Medical Code(s): N17.9 - Acute kidney failure, unspecified (7) Sjogren's disease Status: Chronic Category: Medical Code(s): M35.00 - Sicca syndrome, unspecified - Assessment and plan all Dx Assessment and Plan for all problems:: Good improvement in function, hemoglobin stable. Potassium better this morning after cessation of losartan. Blood pressure is on the low side, we will reduce nifedipine dose to 30 mg. Follow-up tomorrow. Care management evaluation for home health. Family wishes care tenders home health.
--- NOTE | 2020-05-29 15:12 | P.PN_ITS ---
Subjective Date: 05/29/20 Time: 14:30 Principal diagnosis: Status post hemiarthroplasty, left hip Interval history: Patient is status post hemiarthroplasty, left hip post op day #2. Patient is lying down on the bed; says she is doing well. She says her hip is doing well and her pain is well-controlled with medication. She says she got out of bed with help of physical therapy and walked few steps. No history of any distal tingling or numbness. PN: Obj Ex Vital signs: Temp Pulse Resp BP Pulse Ox 97.7 F 75 17 99/58 L 98 05/29/20 08:00 05/29/20 08:00 05/29/20 08:00 05/29/20 08:00 05/29/20 08:00 Narrative: Laboratory Results - last 24 hr 05/29/20 06:38: WBC 5.7 D, RBC 3.03 L, Hgb 9.3 L, Hct 29.5 L, MCV 97.1, MCH 30.8, MCHC 31.7 L, RDW 18.6 H, Plt Count 311, MPV 7.5, Neut % (Auto) 78.3, Lymph % (Auto) 15.1, [place] % (Auto) 4.3, Eos % (Auto) 2.1, Baso % (Auto) 0.2, Neut # (Auto) 4.5, Lymph # (Auto) 0.9, [place] # (Auto) 0.2, Eos # (Auto) 0.1, Baso # (Auto) 0.0 05/29/20 06:38: Sodium 134 L, Potassium 4.9, Chloride 113 H, Carbon Dioxide 16 L , Anion Gap 9.9, BUN 55 H, Creatinine 2.10 H, Estimated Creat Clear 34, Estimated GFR 23 L, Est GFR ( Amer) 28 L, Glucose 67 L, Calcium 7.1 L Exam General appearance: alert, awake, no acute distress Cardiovascular: regular rate & rhythm Respiratory: No respiratory distress noted, speaks in full sentences ABD: soft and non tender Neuro: alert, awake, oriented x 3 On examination of the lower extremities the limb lengths are equal. Thigh and calf are soft and nontender. On examination of the LEFT hip the dressings are clean, dry and intact. Surgical drain in place. I have removed the drain today and change the surgical dressings. The surgical incision looks healthy without any signs of infection or other complications. Distal pulses are 1+. Distal sensation is intact to light touch throughout. No motor deficits noted distally. - Urinary Catheter Management Cosby Cath placed during this visit: no Progress Note: A&P (1) Femoral neck fracture Status: Acute (2) Hyperkalemia Status: Acute (3) Anemia Status: Chronic (4) CHF (congestive heart failure) Status: Chronic (5) Chronic kidney disease (CKD), stage III (moderate) Status: Chronic (6) LUISITO (acute kidney injury) Status: Acute (7) Sjogren's disease Status: Chronic Assessment and Plan for All Diagnoses:: I have reviewed the clinical findings and progress with the patient. Patient is doing well and reports no particular problems in relation to her left hip. Advised her to continue mobilization weightbearing as tolerated on the left side; continue PT OT. To continue abduction pillow when in bed and continue s tandard precautions for the posterior approach hip replacement. Continue DVT prophylaxis for 6 weeks postop. Patient can be discharged from an orthopedic standpoint when appropriate medically. Follow-up in my office in 2 weeks time. Continue medical management as per Dr. Pastrana.
[2020-05-29 15:28] VITALS: BP 104/58; PULSE 75; RESP 18; TEMP 36.7; O2SAT 99
--- NOTE | 2020-05-29 16:48 | PC.NURSE ---
Pt is alert and oriented and able to make needs known. VSS. Have changed dsg to coccyx and repositioned pt. Dsg changed to R arm skin tear as well. Dr. Shea in this shift to change dsg to L hip. Have encouraged use of abductor pillow and it is currently in use. Recently medicated with prn dilaudid and zofran per mar. Pt is resting now and states pt has improved. Pt was seen by PT this shift and was up to void on bsc x 1. Remains safe. Will cont to mx this shift. Lungs cta.
[2020-05-29 20:00] VITALS: BP 114/58; PULSE 87; RESP 14; TEMP 36.6; O2SAT 97
[2020-05-30 03:08] VITALS: BP 129/49; PULSE 90; RESP 16; TEMP 36.9; O2SAT 97
[2020-05-30 05:00] VITALS: BMI 29.6
--- NOTE | 2020-05-30 05:47 | PC.NURSE ---
pt A&OX4 lungs CTA. lt hip dressing in place c/d/i. pt voids per bedpan. pt has rested in intervals throughout shift
[2020-05-30 06:14] LABS: Basophils % 0.3 % (0.1-2.0); Eosinophils # 0.1 K/mm3 (0.0-0.4); Eosinophils % 1.1 % (0.1-12.0); Hematocrit 27.7 % (37.0-47.0); Hemoglobin 8.8 g/dL (12.2-16.2); Lymphocytes # 0.7 K/mm3 (0.7-4.5); Lymphocytes % 13.4 % (10-50); Mean Corpuscular HGB Conc 31.9 g/dL (31.8-35.4); Mean Corpuscular Hemoglobin 30.3 pg (27.0-31.2); Mean Corpuscular Volume 94.9 fl (81-99); Mean Platelet Volume 7.9 fl (7.4-10.4); Monocytes # 0.2 K/mm3 (0.1-1.0); Monocytes % 4.4 % (1.7-9.3); Neutrophils # 4.2 K/mm3 (1.8-7.8); Neutrophils % 80.8 % (37.0-80.0); Platelet Count 297 K/mm3 (142-424); Red Blood Count 2.92 M/mm3 (4.20-5.40); Red Cell Distribution Width 18.3 % (11.5-17.5); White Blood Count 5.2 K/mm3 (4.8-10.8)
[2020-05-30 06:16] LABS: Chloride 113 mmol/L (98-107); Sodium 135 mmol/L (136-145)
[2020-05-30 06:17] LABS: Potassium 4.9 mmoL/L (3.5-5.1)
[2020-05-30 06:19] LABS: Blood Urea Nitrogen 56 mg/dl (7-17); Creatinine Clearance Estimated 32 mL/min (50-200); Estimated Glomerular Filt Rate 22 ml/min (>60); GFR (African American) 27 ML/MIN (>60)
[2020-05-30 06:20] LABS: Anion Gap 11.9 mEq/L (5-15); Calcium 7.1 mg/dl (8.4-10.2); Carbon Dioxide 15 mmol/L (22.0-30.0)
[2020-05-30 06:30] LABS: Glucose 47 mg/dl (74-100)
--- NOTE | 2020-05-30 06:45 | PC.NURSE ---
notified dr rodriguez of critical glucose of 47. FSBS 54 @ 0603. pt was given grape juice with sugar. recheck FSBS @ 7983 65. pt remains non symptomatic
[2020-05-30 06:51] LABS: POC Glucose,Bedside 54 (70-110)
[2020-05-30 07:23] LABS: POC Glucose,Bedside 65 (70-110)
[2020-05-30 07:47] VITALS: BP 122/58; PULSE 83; RESP 20; TEMP 36.6; O2SAT 97
[2020-05-30 08:30] VITALS: PULSE 83; RESP 20; O2SAT 97
--- NOTE | 2020-05-30 08:34 | HMH.DCSUM ---
General - General Admission date:: 05/26/20 Discharge date: 05/30/20 HPI HPI: This is a 70-year-old female with a past medical history significant for congestive heart failure, autoimmune liver cirrhosis, chronic kidney disease who presents to the emergency department for evaluation of left hip pain after a fall 1 week ago. She ambulates minimally at baseline using a walker, but pain was significantly increased this morning when she woke up. She tried taking a tramadol yesterday and this morning, but pain persists. She denies any motor or sensory changes distally. Patient states that any sort of movement makes the pain worse, nothing makes it better. Daughter notes that patient was very anemic at her most recent checkup with her specialist earlier this week and was borderline in need of transfusion. Patient does not take any blood thinners. She lives with a friend and only mobilizes indoors with a walker. Hospital Course Hospital Course: Patient was admitted, went to surgery where ORIF of hip fracture was performed without complications. Patient did require 2 units of packed cells before surgery and required therapy medically for hyperkalemia which improved her situation nicely. She did very nicely with surgery and progressed well over the next couple of days. Was found to have E. coli urinary tract infection, present on admission, treated with Levaquin on discharge, 500 mg daily for 7 days. Physical therapy evaluated and felt that she was appropriate for home discharge given her good mobility and the fact that her daughter and her daughter's boyfriend are both at home, in good health and are there to help with her all the time. Please see physical therapy notes for details. This morning patient was doing well, minimal pain medication requirements. She will be discharged home with pain medication, home health and follow-up with orthopedics and in my office. Please note that I performed a uery-wh-aonr evaluation on patient today, she meets requirements for PT/OT/nursing care, she will need a CBC and BMP in 4 days through home health draw services. She cannot leave the house except with extreme pain and difficulty. Objective Vital signs: Temp Pulse Resp BP Pulse Ox 97.9 F 83 20 122/58 L 97 05/30/20 07:47 05/30/20 07:47 05/30/20 07:47 05/30/20 07:47 05/30/20 07:47 no acute distress - *Routine HEENT Exam Head: Present: normocephalic Eye: Present: EOMI, PERRL ENT: Present: mucous membranes moist Comments: Edentulous no lesions - *Routine Neck Exam Present: supple - *Routine Respiratory Exam Present: CTA bilaterally - *Routine Cardiovascular Exam Present: RRR - *Routine Abdominal Exam Present: soft, normoactive bowel sounds. Absent: tenderness - *Routine Extremities Exam Absent: cyanosis, clubbing, edema Comments: Onychomycosis in all toenails. No edema, good distal perfusion. Pain limits range of motion. Please see Ortho exam for further details - *Routine Skin Exam Present: warm. Absent: rash - Detailed Eye Exam Eyelids: Bilateral normal inspection Results Labs on day of discharge: Labs from last 24 hours 05/30/20 05/30/20 05/30/20 07:15 06:36 05:53 WBC RBC Hgb Hct MCV MCH MCHC RDW Plt Count MPV Neut % (Auto) Lymph % (Auto) [place] % (Auto) Eos % (Auto) Baso % (Auto) Neut # (Auto) Lymph # (Auto) [place] # (Auto) Eos # (Auto) Baso # (Auto) Sodium 135 L Potassium 4.9 Chloride 113 H Carbon Dioxide 15 L Anion Gap 11.9 BUN 56 H Creatinine 2.20 H Estimated Creat Clear 32 Estimated GFR 22 L Est GFR ( Amer) 27 L Glucose 47 L D POC Glucose 65 L 54 L Calcium 7.1 L 05/30/20 05:53 WBC 5.2 RBC 2.92 L Hgb 8.8 L Hct 27.7 L MCV 94.9 MCH 30.3 MCHC 31.9 RDW 18.3 H Plt Count 297 MPV 7.9 Neut % (Auto) 80.8 H Lymph % (Auto)
--- NOTE | 2020-05-30 09:56 | HMH.OTEV ---
OT Inpatient Evaluation Rehab OT IP Evaluation Start: 05/27/20 16:37 Freq: ONCE Status: Complete Protocol: Document 05/30/20 09:47 KELLIE (Rec: 05/30/20 09:55 [facility] [id number] Rehab OT IP Assessment Subjective History Pt was oriented x3 on arrival. Pt agreeable to engage in therapy evaluation. Pt admitted via ED on 05/26/20 after a fall at home. Pt has a past medical hx of Anxiety, CHF, depression, and HTN. Pt reports she lives at home with a friend. Pt claims she was independent with dressing prior, but did have someone sit with her while showering for safety. Pt claims her family (daughters) were there daily and they completed most IADL's for her. Pt was able to still cook small meals and do light cleaning. Pt used a rollator during functional mobility. Subjective I don't know if I can do it or not. Objective Patient Orientation Person,Place Upper Extremity Gross ROM WFL Bed Mobility bed mobility-scooting,bed mobility - supine/sit,bed mobility - rolling Assist Level Moderate x 1 (50% assist) Transfer Training Sit/Stand Transfer Assist Level Minimal x 1 (25% assist) Lower Body Dressing Ability Maximum Assistance Performing Toilet Hygiene Ability Maximum Assistance Overall Commode/Toilet Transfer Ability Assistance x2 Commode/Toilet Transfer Technique Sit to/from Ambulatory Rehab OT IP prob,goals,plan Problems Date of Evaluation: 05/30/20 OT IP Problems Bed Mobility,Transfers,Gait, Balance,Self care,Safety Rehab Potential Rehab Potential Good Equipment Needs Assistive Devices Rolling / Wheeled Walker Plan OT intervention Plan Bed Mobility,Transfers,Gait, Balance,Self care,Safety, Therapeutic Exercise OT Plan Frequency Daily Duration LOS Discharge Goals Bed Mobility Ability Assistance x1 Sit to Stand Chair Transfer Ability Minimal x 1 (25% assist) Chair Transfer Ability Minimal x 1 (25% assist) Chair Transfer Technique
--- NOTE | 2020-05-30 11:12 | PC.NURSE ---
This pt could would benefit from the use of a rolling walker due to instability and unsteady gait, related to LT hip fracture.
--- NOTE | 2020-05-30 11:27 | SW/DCPLANNER ---
RECEIVED REFERRAL FOR HOME HEALTH SERVICES AND ROLLING WALKER FOR THIS PATIENT: MS COOK HAS DONE WELL AFTER HER SURGERY FROM A FEMUR FRACTURE... SHE AND FAMILY HAS REQUESTED [facility] AND ALSO A ROLLING WALKER... I HAVE SENT REFERRAL FOR WALKER TO BE DELIVERED AND [facility]... DAUGHTER IS HERE TO TAKE PATIENT HOME ONCE WALKER IS DELIVERED.
== END 2020-05-30 13:45 | disposition home health service (06) | DRG 522 ==
LOC: ER 12:29 → 2ND 14:20
PROVIDERS: Orthopaedic Surgery; Admitting Provider Internal Medicine Adolescent Medicine; Emergency Provider Emergency Medicine; PCP Internal Medicine Adolescent Medicine; Visit Provider Internal Medicine Adolescent Medicine
PROC: 0SRS03A Replacement of Left Hip Joint, Femoral Surface with Ceramic Synthetic Substitute, Uncemented, Open Approach (ICD-10-PCS; CPT 27236; principal; 2020-05-27 13:45)
DX: S72.032A Displaced midcervical fracture of left femur, initial encounter for closed fracture (principal); I13.0 Hypertensive heart and chronic kidney disease with heart failure and stage 1 through stage 4 chronic kidney disease, or unspecified chronic kidney disease; I50.22 Chronic systolic (congestive) heart failure; N17.9 Acute kidney failure, unspecified; N39.0 Urinary tract infection, site not specified; N18.30 Chronic kidney disease, stage 3 unspecified; D63.1 Anemia in chronic kidney disease; E87.5 Hyperkalemia; K74.69 Other cirrhosis of liver; B96.20 Unspecified Escherichia coli [E. coli] as the cause of diseases classified elsewhere; W01.0XXA Fall on same level from slipping, tripping and stumbling without subsequent striking against object, initial encounter; Y92.019 Unspecified place in single-family (private) house as the place of occurrence of the external cause; Z88.0 Allergy status to penicillin; Z88.8 Allergy status to other drugs, medicaments and biological substances; Z91.041 Radiographic dye allergy status; Z79.899 Other long term (current) drug therapy
CPT/HCPCS: 27236; 36415; 71045; 73502; 80048; 80053; 81001; 82962; 85007; 85014; 85018; 85025; 85610; 85730; 86328; 86850; 87086; 87088; 87186; 96365; 96375; 97116; 97161; 97166; 97530; 99283; C1713; C1776; J2405; J2710; J3370; P9016

== ENCOUNTER → 2020-06-02 12:05 | Outpatient (CLI) | payer MEDICARE, MEDICAID, SELFPAY ==
[2020-06-02 12:31] LABS: Basophils % 0.6 % (0.1-2.0); Eosinophils # 0.2 K/mm3 (0.0-0.4); Eosinophils % 4.7 % (0.1-12.0); Hematocrit 29.9 % (37.0-47.0); Hemoglobin 9.4 g/dL (12.2-16.2); Lymphocytes # 0.7 K/mm3 (0.7-4.5); Lymphocytes % 18.1 % (10-50); Mean Corpuscular HGB Conc 31.4 g/dL (31.8-35.4); Mean Corpuscular Hemoglobin 29.8 pg (27.0-31.2); Mean Corpuscular Volume 94.8 fl (81-99); Mean Platelet Volume 8.5 fl (7.4-10.4); Monocytes # 0.2 K/mm3 (0.1-1.0); Monocytes % 3.9 % (1.7-9.3); Neutrophils # 2.9 K/mm3 (1.8-7.8); Neutrophils % 72.7 % (37.0-80.0); Platelet Count 297 K/mm3 (142-424); Red Blood Count 3.15 M/mm3 (4.20-5.40); Red Cell Distribution Width 17.9 % (11.5-17.5)
[2020-06-02 12:34] LABS: Chloride 111 mmol/L (98-107); Sodium 133 mmol/L (136-145)
[2020-06-02 12:35] LABS: Potassium 4.6 mmoL/L (3.5-5.1)
[2020-06-02 12:37] LABS: Blood Urea Nitrogen 59 mg/dl (7-17); Estimated Glomerular Filt Rate 23 ml/min (>60); GFR (African American) 28 ML/MIN (>60)
[2020-06-02 12:38] LABS: Anion Gap 10.6 mEq/L (5-15); Calcium 7.5 mg/dl (8.4-10.2); Carbon Dioxide 16 mmol/L (22.0-30.0); Glucose 68 mg/dl (74-100)
== END ==
PROVIDERS: Visit Provider Internal Medicine Adolescent Medicine
DX: I50.9 Heart failure, unspecified (principal); D63.0 Anemia in neoplastic disease; M35.00 Sjogren syndrome, unspecified
CPT/HCPCS: 80048; 85025

== ENCOUNTER → 2020-06-06 10:01 | Outpatient (CLI) | payer MEDICARE, MEDICAID, SELFPAY ==
--- NOTE | 2020-06-06 10:07 | CA_ITS ---
APPROVED REPORT Right Lower Extremity Venous Study for DVT. Ripper Operator: Ade Palafox RVT Indications Lower Extremity Pain: Right Lower Extremity Edema: Right PT HAD LT HIP SURGERY LAST WEEK NOW C/O PAIN/EDEMA RLE Risk Factors Immobility Vein Imaging CFV (R): compressive, spontaneous, phasic, augmentation FEM (R): compressive, spontaneous, phasic, augmentation POP (R): compressive, spontaneous, phasic, augmentation PTV (R): Compressible GSV (R): Thrombus Peroneals (R):Compressible GAS (R): Compressible Findings Study suggests thrombus of the right GSV at the level of mid thigh extending to distal thigh. Deep veins of the right lower extremity are normal. Study suggests no other evidence of SVT of the right lower extremity. Conclusion Study suggests thrombus of the right GSV at the level of mid thigh extending to distal thigh. Deep veins of the right lower extremity are normal. Study suggests no other evidence of SVT of the right lower extremity. Critical Notification Physician Notified Date: 06/06/2020 Time: 10:51 Physician Name: Dr Pastrana Electronically signed by : Xavier Lovell MD 06/06/2020 17:11:33
== END ==
PROVIDERS: PCP Nurse Practitioner Family; Visit Provider Nurse Practitioner Family
DX: M79.604 Pain in right leg (principal); R60.9 Edema, unspecified
CPT/HCPCS: 93971

== ENCOUNTER → 2020-06-08 13:39 | Outpatient (CLI) | payer MEDICARE, MEDICAID, SELFPAY ==
--- NOTE | 2020-06-08 13:42 | XR_ITS ---
PROCEDURE: XR HIP LT 2-3V W/PELVIS CLINICAL INDICATION: sp LT bipolar hemiarthroplasty The COMPARISON: No exams were available for comparison FINDINGS: Status post left hip hemiarthroplasty. There is good alignment with no evidence of complications. Unusual density with multiple small opacities is present over the pelvic region may be due something upon the patient. Please correlate clinically. Mild osteoarthritic changes of the right hip. IMPRESSION: Good alignment status post left hip hemiarthroplasty. Dictated by: Xavier Lovell MD 06/08/2020 14:38 Xavier Lovell MD in [place] 06/08/2020 14:38
== END ==
PROVIDERS: PCP Internal Medicine Adolescent Medicine; Visit Provider Orthopaedic Surgery
DX: Z09 Encounter for follow-up examination after completed treatment for conditions other than malignant neoplasm (principal)
CPT/HCPCS: 73502

== ENCOUNTER → 2020-06-13 13:11 | Outpatient (CLI) | payer MEDICARE, SELFPAY ==
[2020-06-13 14:46] LABS: Basophils % 0.9 % (0.1-2.0); Eosinophils # 0.1 K/mm3 (0.0-0.4); Eosinophils % 1.5 % (0.1-12.0); Hematocrit 27.7 % (37.0-47.0); Lymphocytes # 0.7 K/mm3 (0.7-4.5); Lymphocytes % 14.9 % (10-50); Mean Corpuscular HGB Conc 32.6 g/dL (31.8-35.4); Mean Corpuscular Hemoglobin 29.8 pg (27.0-31.2); Mean Corpuscular Volume 91.4 fl (81-99); Mean Platelet Volume 8.6 fl (7.4-10.4); Monocytes # 0.2 K/mm3 (0.1-1.0); Monocytes % 3.8 % (1.7-9.3); Neutrophils # 3.7 K/mm3 (1.8-7.8); Platelet Count 365 K/mm3 (142-424); Red Blood Count 3.03 M/mm3 (4.20-5.40); Red Cell Distribution Width 18.6 % (11.5-17.5); White Blood Count 4.7 K/mm3 (4.8-10.8)
[2020-06-13 15:39] LABS: Anion Gap 9.8 mEq/L (5-15); Blood Urea Nitrogen 67 mg/dl (7-17); Calcium 7.1 mg/dl (8.4-10.2); Carbon Dioxide 18 mmol/L (22.0-30.0); Chloride 106 mmol/L (98-107); Estimated Glomerular Filt Rate 23 ml/min (>60); GFR (African American) 28 ML/MIN (>60); Glucose 78 mg/dl (74-100); Potassium 3.8 mmoL/L (3.5-5.1); Sodium 130 mmol/L (136-145)
== END ==
PROVIDERS: Visit Provider Internal Medicine Adolescent Medicine
DX: D64.9 Anemia, unspecified (principal)
CPT/HCPCS: 80048; 85025

== ENCOUNTER → 2020-06-29 18:14 | Outpatient (CLI) | payer MEDICARE, SELFPAY ==
[2020-06-29 18:36] LABS: Basophils % 0.4 % (0.1-2.0); Eosinophils # 0.1 K/mm3 (0.0-0.4); Eosinophils % 1.4 % (0.1-12.0); Lymphocytes % 21.3 % (10-50); Mean Corpuscular HGB Conc 32.6 g/dL (31.8-35.4); Mean Corpuscular Hemoglobin 29.6 pg (27.0-31.2); Mean Corpuscular Volume 90.7 fl (81-99); Mean Platelet Volume 7.9 fl (7.4-10.4); Monocytes # 0.2 K/mm3 (0.1-1.0); Neutrophils # 3.5 K/mm3 (1.8-7.8); Neutrophils % 73.8 % (37.0-80.0); Platelet Count 489 K/mm3 (142-424); Red Blood Count 2.58 M/mm3 (4.20-5.40); Red Cell Distribution Width 19.3 % (11.5-17.5); White Blood Count 4.8 K/mm3 (4.8-10.8)
[2020-06-29 18:51] LABS: Hematocrit 23.4 % (37.0-47.0); Hemoglobin 7.6 g/dL (12.2-16.2)
== END ==
PROVIDERS: Visit Provider Internal Medicine Adolescent Medicine
DX: I50.33 Acute on chronic diastolic (congestive) heart failure (principal)
CPT/HCPCS: 85025